=== PATIENT | female | born 1970 | race African-American/Black ===

== ENCOUNTER 2016-06-15 12:52 | Inpatient (IN) | payer MEDICARE ==
[~2016-06-15] VITALS: Ht 180.3 cm; Wt 160.8 kg
[~2016-06-15 12:52] MED LIST: ASPI81TA2 PO; FERR325T58 PO; LISI1TAB5 PO; METF500T4 PO; OMEP20CA9 PO
[2016-06-15] MEDS ORDERED: IV NORMAL SALINE 1000ML BAG 1,000 ML IV SCH (13:03)
--- NOTE | 2016-06-15 13:14 | PHYS DOC ---
Past Medical History Past Medical History: Diabetes-Type II, Hypertension, Other Additional Past Medical Histor: BORDERLINE DIABETIC Past Surgical History: Tubal ligation Alcohol Use: Occasionally Drug Use: None Adult General Chief Complaint Chief Complaint: CHEST PAIN HPI HPI Is a pleasant 45-year-old -[place] female who presents with chest pain that began 20 minutes prior to arrival. She is presently lady who is axis seen 3 or 4 months ago for a very similar presentation was admitted to the hospital as a low-risk chest pain patient no invasive procedures were done and noted excess treadmill was completed. She said today she woke up with neck pain on the right side that was described as aching and told to come ibuprofen 30 mins prior to arrival developed chest pain at rest while driving her car. She describes the chest pain as squeezing in nature over the left breast with radiation to the left shoulder making her diaphoretic lightheaded and dizzy. She decided to come back to the hospital because the pain was unabating. She admits that the pain is radiating to her back her left shoulder is made her lightheaded and dizzy. She denies any nausea vomiting at this time denies any coffee or symptoms she denies any fevers or chills direct trauma worsening symptoms with movement of the shoulder or arm. She said she had an x-ray showed multiple asthma for 5 years ago at another facility does have a cardiology evaluation with the last admission 3 months ago and is presently not on her medications for her high blood pressure since she has run out. She was asked on her way to see her primary care doctor to get that refilled at [facility]. She has a significant family history with the mother father and older brother who have had significant CAD with CABG's. Her pain presently is a 7 of 10 Review of Systems Review of Systems Constitutional: Denies fever or chills [] Eyes: Denies change in visual acuity, redness, or eye pain [] HENT: Denies nasal congestion or sore throat [] Respiratory: She denies any cough shortness of breath which has been worsening with movement. Cardiovascular: No additional information not addressed in HPI [] GI: Denies abdominal pain, nausea, vomiting, bloody stools or diarrhea [] : Denies dysuria or hematuria [] Musculoskeletal: Denies back pain or joint pain [] Integument: Denies rash or skin lesions [] Neurologic: She has been lightheaded and dizzy with diaphoresis. Endocrine: Denies polyuria or polydipsia [] Family History Family History Family history is significant for hypertension and CAD Current Medications Current Medications Current Medications Medications (Trade) Dose Ordered Sig/Tena Start Time Stop Time Status Last Admin Dose Admin Aspirin (Children'S Aspirin) 324 mg 1X ONCE 06/15/16 13:15 06/15/16 13:16 DC 06/15/16 13:19 324 MG Fentanyl Citrate 50 mcg 50 mcg PRN Q15MIN PRN 06/15/16 13:15 06/16/16 13:14 06/15/16 13:18 50 MCG Iohexol (Omnipaque 300 Mg/ml) 75 ml 1X ONCE 06/15/16 14:00 06/15/16 14:01 DC 06/15/16 14:20 75 ML Sodium Chloride (Iv Sodium Chloride 0.9% 1000ml Bag) 1,000 ml @ 1,000 mls/hr Q1H 06/15/16 13:03 06/15/16 14:02 DC 06/15/16 13:18 1,000 MLS/HR Sodium Chloride (Normal Saline Flush) 10 ml QSHIFT PRN 06/15/16 13:15 06/15/16 13:19 10 ML Allergies Allergies Allergies Coded Allergies Type Severity Reaction Last Updated Verified No Known Drug Allergies 12/16/14 No Physical Exam Physical Exam Constitutional: Well developed, well nourished, patient is nondiaphoretic in no acute distress but says her pain is presently 7 of 10. HENT: Normocephalic, atraumatic, bilateral external ears normal, oropharynx moist, no oral exudates, nose normal. [] Eyes: PERRLA, EOMI, conjunctiva normal, no discharge. [] Neck: Normal range of motion, no tenderness, supple, no stridor. [] Cardiovascular:Heart rate regular rhythm, no murmur [] Lungs & Thorax: Bilateral breath sounds clear to auscultation [] Abdomen: Bowel sounds normal, soft, no tenderness, no masses, no pulsatile masses. [] Skin: Warm, dry, no erythema, no rash. [] Back: No tenderness, no CVA tenderness. [] Extremities: No tenderness, no cyanosis, no clubbing, ROM intact, no edema. [] Neurologic: Alert and oriented X 3, normal motor function, normal sensory function, no focal deficits noted. [] Psychologic: Affect normal, judgement normal, mood normal. [] Current Patient Data Vital Signs Vital Signs Date Time Temp Pulse Resp B/P Pulse Ox O2 Delivery O2 Flow Rate FiO2 06/15/16 14:03 68 20 149/78 98 Room Air 06/15/16 12:59 98.1 98.1 Lab Values Laboratory Tests Test 06/15/16 12:58 06/15/16 13:10 06/15/16 13:45 POC Urine HCG, Qualitative Hcg negative (Negative) White Blood Count 9.2x10^3/uL (4.0-11.0) Red Blood Count 4.57x10^6/uL (3.50-5.40) Hemoglobin 13.9g/dL (12.0-15.5) Hematocrit 42.4% (36.0-47.0) Mean Corpuscular Volume 93fL (79-100) Mean Corpuscular Hemoglobin 31pg (25-35) Mean Corpuscular Hemoglobin Concent 33g/dL (31-37) Red Cell Distribution Width 13.5% (11.5-14.5) Platelet Count 252x10^3/uL (140-400) Neutrophils (%) (Auto) 62% (31-73) Lymphocytes (%) (Auto) 26% (24-48) Monocytes (%) (Auto) 11% (0-9) H Eosinophils (%) (Auto) 1% (0-3) Basophils (%) (Auto) 1% (0-3) Neutrophils # (Auto) 5.6x10^3uL (1.8-7.7) Lymphocytes # (Auto) 2.4x10^3/uL (1.0-4.8) Monocytes # (Auto) 1.0x10^3/uL (0.0-1.1) Eosinophils # (Auto) 0.0x10^3/uL (0.0-0.7) Basophils # (Auto) 0.1x10^3/uL (0.0-0.2) D-Dimer (Stephani) 0.56ug/mlFEU (0.00-0.50) H Sodium Level 137mmol/L (136-145) Potassium Level 4.1mmol/L (3.5-5.1) Chloride Level 101mmol/L (98-107) Carbon Dioxide Level 32mmol/L (21-32) Anion Gap 4 (6-14) L Blood Urea Nitrogen 11mg/dL (7-20) Creatinine 0.7mg/dL (0.6-1.0) Estimated GFR (Cockcroft-Gault) 109.5 Glucose Level 124mg/dL (70-99) H Calcium Level 9.1mg/dL (8.5-10.1) Magnesium Level 1.7mg/dL (1.8-2.4) L Creatine Kinase 161U/L (26-192) Creatine Kinase MB (Mass) 1.0ng/mL (0.0-3.6) Creatine Kinase MB Relative Index 0.6% (0-4) Troponin I Quantitative 0.027ng/mL (0.000-0.055) JI-Qsd-I-Type Natriuretic Peptide 290pg/mL (0-124) H Lipase 104U/L (73-393) Urine Collection Type Unknown Urine Color Yellow Urine Clarity Clear Urine pH 7.0 Urine Specific [place] 1.020 Urine Protein Negativemg/dL (NEG-TRACE) Urine Glucose (UA) Negativemg/dL (NEG) Urine Ketones (Stick) Negativemg/dL (NEG) Urine Blood Negative (NEG) Urine Nitrite Negative (NEG) Urine Bilirubin Negative (NEG) Urine Urobilinogen Dipstick 1.0mg/dL (0.2 mg/dL) Urine Leukocyte Esterase Small (NEG) Urine RBC 0/HPF (0-2) Urine WBC Occ/HPF (0-4) Urine Squamous Epithelial Cells Many/LPF Urine Bacteria Few/HPF (0-FEW) Urine Mucus Slight/LPF Laboratory Tests 06/15/16 13:10 Laboratory Tests 06/15/16 13:10 EKG EKG [] EKG dated 06/15/2016 time 1302 demonstrates normal sinus rhythm heart rate of 88 ND interval normal at 170 patient's QRS is normal at 354. There is no asymmetry with changes consistent with acute coronary ischemia no T wave inversion and no Q-wave formation. Radiology/Procedures Radiology/Procedures Laboratory Tests Test 06/15/16 12:58 06/15/16 13:10 06/15/16 13:45 Bedside Urine HCG, Qualitative Hcg negative (Negative) White Blood Count 9.2x10^3/uL (4.0-11.0) Red Blood Count 4.57x10^6/uL (3.50-5.40) Hemoglobin 13.9g/dL (12.0-15.5) Hematocrit 42.4% (36.0-47.0) Mean Corpuscular Volume 93fL (79-100) Mean Corpuscular Hemoglobin 31pg (25-35) Mean Corpuscular Hemoglobin Concent 33g/dL (31-37) Red Cell Distribution Width 13.5% (11.5-14.5) Platelet Count 252x10^3/uL (140-400) Neutrophils (%) (Auto) 62% (31-73) Lymphocytes (%) (Auto) 26% (24-48) Monocytes (%) (Auto) 11% (0-9) Eosinophils (%) (Auto) 1% (0-3) Basophils (%) (Auto) 1% (0-3) Neutrophils # (Auto) 5.6x10^3uL (1.8-7.7) Lymphocytes # (Auto) 2.4x10^3/uL (1.0-4.8) Monocytes # (Auto) 1.0x10^3/uL (0.0-1.1) Eosinophils # (Auto) 0.0x10^3/uL (0.0-0.7) Basophils # (Auto) 0.1x10^3/uL (0.0-0.2) D-Dimer (Stephani) 0.56ug/mlFEU (0.00-0.50) Sodium Level 137mmol/L (136-145) Chloride Level 101mmol/L (98-107) Carbon Dioxide Level 32mmol/L (21-32) Anion Gap 4 (6-14) Blood Urea Nitrogen 11mg/dL (7-20) Estimated GFR (Cockcroft-Gault) 109.5 Glucose Level 124mg/dL (70-99) Calcium Level 9.1mg/dL (8.5-10.1) Creatine Kinase 161U/L (26-192) Creatine Kinase MB (Mass) 1.0ng/mL (0.0-3.6) Creatine Kinase MB Relative Index 0.6% (0-4) Troponin I Quantitative 0.027ng/mL (0.000-0.055) Lipase 104U/L (73-393) Urine Collection Type Unknown Urine Color Yellow Urine Clarity Clear Urine pH 7.0 Urine Specific [place] 1.020 Urine Protein Negativemg/dL (NEG-TRACE) Urine Glucose (UA) Negativemg/dL (NEG) Urine Ketones (Stick) Negativemg/dL (NEG) Urine Blood Negative (NEG) Urine Nitrite Negative (NEG) Urine Bilirubin Negative (NEG) Urine Urobilinogen Dipstick 1.0mg/dL (0.2 mg/dL) Urine Leukocyte Esterase Small (NEG) Urine RBC 0/HPF (0-2) Urine WBC Occ/HPF (0-4) Urine Squamous Epithelial Cells Many/LPF Urine Bacteria Few/HPF (0-FEW) Urine Mucus Slight/LPF [] Impressions: Signed PATIENT: LIDIA CRUZ ACCOUNT: [id number] : 1970 LOCATION: ER AGE: 45 SEX: F EXAM STATUS: REG ER ORD. PHYSICIAN: LINA ESTEBAN MD REASON: chest pain with positive d-dimer PROCEDURE: CT ANGIOGRAPHY CHEST Elevated d-dimer. Left-sided chest pain. Axial images of the chest were obtained. The examination was tailored for the detection of pulmonary embolus. MIP images were generated and reviewed. No similar imaging is available. Approximately 75 cc of Omnipaque 300 was administered. Imaging through the upper abdomen shows no acute finding. Cholelithiasis is noted. The thoracic aorta appears unremarkable. Calcified right paratracheal lymph nodes are noted as well as calcified subcarinal lymph nodes. There are occasional calcified parenchymal granulomas as well. There is a noncalcified nodule in the right upper lobe measuring approximately 2 mm, image 59 series 3. An acute parenchymal infiltrate or dominant soft tissue mass in either lung is not seen. The study is negative for pulmonary embolus. IMPRESSION: No acute finding seen in the chest. Negative study for pulmonary embolus. Several scattered parenchymal granulomas and calcified mediastinal lymph nodes. There is a small noncalcified nodule in the right upper lobe. This may warrant follow-up along the lines of the Fleischner criteria. Clinical correlation advised Cholelithiasis Nodules detected incidentally at non-screening CT Nodule size (mm) less than or equal to 4 Low Risk patients- no follow-up needed High Risk patients- follow-up at 12 months and if no change, no further imaging needed. Nodule size > 4-6 mm Low risk patients- follow- up at 12 months and if no change, no further imaging needed High risk patients- initial follow-up CT at 6-12 months and then at 18-24 months if no change. Nodule Size > 6-8 mm Low risk patients- initial follow-up CT at 6-12 months and then at 18-24 months if no change. High risk patients- initial follow- up CT at 3-6 months and then at 9-12 months if no change, Nodule Size >8 mm Either low or high risk patients: Follow-up CT at around 3, 9 and 24 months Dynamic contrast enhanced [address], PET, and/or biopsy Note: newly detected indeterminate nodule in person 35 years of age or older. Low risk patients- minimal or absent history of smoking and/or other known risk factors. High risk patients- history of smoking or of other known risk factors. PQRS Compliance Statement: One or more of the following individualized dose reduction techniques were utilized for this examination: 1. Automated exposure control 2. Adjustment of the mA and/or kV according to patient size 3. Use of iterative reconstruction technique DICTATED and SIGNED BY: BISI FELDMAN MD DATE: 06/15/16 1363 CC: LINA ESTEBAN MD; UNKNOWN PCP NAME ~ Course & Med Decision Making Course & Med Decision Making Pertinent Labs and Imaging studies reviewed. (See chart for details) [On arrival patient's story is very concerning for acute coronary syndrome. Differential diagnosis includes pericarditis per: Effusion pneumonitis pleural effusion and pericardial effusion mediastinitis esophageal reflux disease peptic ulcer disease muscatel disorder.] Patient's troponin is negative patient has a positive d-dimer but a negative CT scan of the chest. Patient is a low risk chest pain patient will need to be admitted given the duration of her symptoms only 20 minutes prior to arrival. Patient will be admitted to internal medicine and will be excluded with multiple troponins overnight and see cardiology in the morning. Patient felt markedly better with aspirin and the pain medications as well as fluids here in the emergency department. Dragon Disclaimer Dragon Disclaimer This electronic medical record was generated, in whole or in part, using a voice recognition dictation system. Departure Departure Impression: Primary Impression: Chest pain Disposition: 02 TRANSFER [facility] Admitting Physician: Ramy Barnes Condition: GOOD Referrals: UNKNOWN PCP NAME (PCP) LINA ESTEBAN MD June 15, 2016 13:14
[2016-06-15] MEDS ORDERED: 0.9 % SODIUM CHLORIDE 10 ML DISP.SYRIN. IV PRN (13:15)
[2016-06-15] MEDS ORDERED: ASPIRIN CHEWABLE 81 MG TABLET. PO ONE (13:15)
[2016-06-15] MEDS ORDERED: fentaNYL PF VIAL 100 MCG/2 ML VIAL IV PRN (13:15)
[2016-06-15 13:19] LABS: BASO # 0.1 x10^3/uL (0.0-0.2); BASO % 1 % (0-3); EOS % 1 % (0-3); HEMATOCRIT 42.4 % (36.0-47.0); HEMOGLOBIN 13.9 g/dL (12.0-15.5); LYMPH # 2.4 x10^3/uL (1.0-4.8); LYMPH % 26 % (24-48); MEAN CORPUSCULAR HEMOGLOBIN 31 pg (25-35); MEAN CORPUSCULAR HGB CONC 33 g/dL (31-37); MEAN CORPUSCULAR VOLUME 93 fL (79-100); MONO % 11 % (0-9); NEUT % 62 % (31-73); PLATELET COUNT 252 x10^3/uL (140-400); RED BLOOD COUNT 4.57 x10^6/uL (3.50-5.40); RED CELL DISTRIBUTION WIDTH 13.5 % (11.5-14.5); WHITE BLOOD COUNT 9.2 x10^3/uL (4.0-11.0)
[2016-06-15 13:29] LABS: CALCIUM 9.1 mg/dL (8.5-10.1); CREATININE 0.7 mg/dL (0.6-1.0); GFR 109.5; POTASSIUM 4.1 mmol/L (3.5-5.1)
[2016-06-15 13:30] LABS: MAGNESIUM 1.7 mg/dL (1.8-2.4)
[2016-06-15] MEDS ORDERED: IOHEXOL 300 MG/ML 75 ML VIAL IV ONE (14:00)
[2016-06-15 14:02] LABS: BILIRUBIN,URINE NEGATIVE (NEG); GLUCOSE,URINE NEGATIVE (NEG); NITRITE,URINE NEGATIVE (NEG); PROTEIN,URINE NEGATIVE (NEG-TRACE)
--- NOTE | 2016-06-15 14:03 | EKG ---
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
[2016-06-15 14:12] LABS: BACTERIA,URINE FEW /HPF (0-FEW); RBC,URINE 0 /HPF (0-2); SQUAMOUS EPITHELIAL CELL,UR MANY /LPF; WBC,URINE OCC /HPF (0-4)
--- NOTE | 2016-06-15 14:24 | RAD ---
Indication left-sided chest pain. PA and lateral views of the chest were obtained and are compared to an exam 01/25/2016. Heart size is at the upper limits of normal. Some fullness in the right paratracheal region is noted similar to the previous exam density likely reflecting a granuloma is noted in the right lung also similar. Pulmonary vasculature is normal. An acute parenchymal infiltrate or significant change compared to the previous exam is not seen. IMPRESSION:: No acute finding. No significant change
--- NOTE | 2016-06-15 14:44 | RAD ---
Elevated d-dimer. Left-sided chest pain. Axial images of the chest were obtained. The examination was tailored for the detection of pulmonary embolus. MIP images were generated and reviewed. No similar imaging is available. Approximately 75 cc of Omnipaque 300 was administered. Imaging through the upper abdomen shows no acute finding. Cholelithiasis is noted. The thoracic aorta appears unremarkable. Calcified right paratracheal lymph nodes are noted as well as calcified subcarinal lymph nodes. There are occasional calcified parenchymal granulomas as well. There is a noncalcified nodule in the right upper lobe measuring approximately 2 mm, image 59 series 3. An acute parenchymal infiltrate or dominant soft tissue mass in either lung is not seen. The study is negative for pulmonary embolus. IMPRESSION: No acute finding seen in the chest. Negative study for pulmonary embolus. Several scattered parenchymal granulomas and calcified mediastinal lymph nodes. There is a small noncalcified nodule in the right upper lobe. This may warrant follow-up along the lines of the Fleischner criteria. Clinical correlation advised Cholelithiasis Nodules detected incidentally at non-screening CT Nodule size (mm) less than or equal to 4 Low Risk patients- no follow-up needed High Risk patients- follow-up at 12 months and if no change, no further imaging needed. Nodule size > 4-6 mm Low risk patients- follow- up at 12 months and if no change, no further imaging needed High risk patients- initial follow-up CT at 6-12 months and then at 18-24 months if no change. Nodule Size > 6-8 mm Low risk patients- initial follow-up CT at 6-12 months and then at 18-24 months if no change. High risk patients- initial follow- up CT at 3-6 months and then at 9-12 months if no change, Nodule Size >8 mm Either low or high risk patients: Follow-up CT at around 3, 9 and 24 months Dynamic contrast enhanced CT, PET, and/or biopsy Note: newly detected indeterminate nodule in person 35 years of age or older. Low risk patients- minimal or absent history of smoking and/or other known risk factors. High risk patients- history of smoking or of other known risk factors. PQRS Compliance Statement: One or more of the following individualized dose reduction techniques were utilized for this examination: 1. Automated exposure control 2. Adjustment of the mA and/or kV according to patient size 3. Use of iterative reconstruction technique
[2016-06-15] MEDS ORDERED: MULT1TAB52 PO (15:41)
[2016-06-15 15:46] VITALS: BP 147/78
[2016-06-15] MEDS ORDERED: ACETAMINOPHEN 325 MG TABLET. PO PRN (18:45)
[2016-06-15] MEDS ORDERED: ONDANSETRON PF 4 MG/2 ML VIAL. IV PRN (18:45)
[2016-06-15] MEDS ORDERED: hydrALAZINE 20 MG/ML VIAL. IVP PRN (18:45)
[2016-06-15] MEDS ORDERED: ALBUTEROL SULFATE 2.5 MG/3 ML NEBU. NEB PRN (18:45)
[2016-06-15] MEDS ORDERED: HYDROcodone/APAP 5/325MG 1 TAB TABLET PO PRN (18:45)
--- NOTE | 2016-06-15 18:57 | PDOC1 ---
History and Physical Current Problem List Problem List Problems Medical Problems: (1) Chest pain Status: Acute Current Medications Current Medications Current Medications Medications (Trade) Dose Ordered Sig/Tena Start Time Stop Time Status Last Admin Dose Admin Acetaminophen (Tylenol) 325 mg PRN Q6HRS PRN 06/15/16 18:45 Acetaminophen/ Hydrocodone Bitart (Lortab 5/325) 1 tab PRN Q6HRS PRN 06/15/16 18:45 Albuterol Sulfate (Ventolin Neb Soln) 2.5 mg PRN Q4HRS PRN 06/15/16 18:45 Aspirin (Children'S Aspirin) 81 mg DAILY 06/16/16 09:00 Fentanyl Citrate 50 mcg 50 mcg PRN Q15MIN PRN 06/15/16 13:15 06/16/16 13:14 06/15/16 13:18 50 MCG Ferrous Sulfate (Feosol) 325 mg DAILY 06/16/16 09:00 Hydralazine HCl (Apresoline) 10 mg PRN Q4HRS PRN 06/15/16 18:45 Iohexol (Omnipaque 300 Mg/ml) 75 ml 1X ONCE 06/15/16 14:00 06/15/16 14:01 DC 06/15/16 14:20 75 ML Lisinopril (Prinivil) 20 mg DAILY 06/16/16 09:00 Multivitamins (Thera M Plus) 1 tab DAILY 06/16/16 09:00 Non-Formulary Medication 1 cap DAILY 06/16/16 09:00 UNV Ondansetron HCl (Zofran) 4 mg PRN Q8HRS PRN 06/15/16 18:45 Sodium Chloride (Iv Sodium Chloride 0.9% 1000ml Bag) 1,000 ml @ 1,000 mls/hr Q1H 06/15/16 13:03 06/15/16 14:02 DC 06/15/16 13:18 1,000 MLS/HR Sodium Chloride (Normal Saline Flush) 10 ml QSHIFT PRN 06/15/16 13:15 06/15/16 13:19 10 ML Allergies Allergies Allergies Coded Allergies Type Severity Reaction Last Updated Verified No Known Drug Allergies 12/16/14 No ROS Review of System CONSTITUTIONAL: No fever or chills EYES: No recent changes SKIN: No rash or itching CARDIOVASCULAR: Chest pain, no syncope, palpitations, or edema RESPIRATORY: No SOB or cough GASTROINTESTINAL: No nausea, vomiting or abdominal pain NEUROLOGICAL: No headaches or weakness ENDOCRINE: No cold or heat intolerance GENITOURINARY: No urgency or frequency of urination MUSCULOSKELETAL: No back pain or joint pain LYMPHATICS: No enlarged lymph nodes PSYCHIATRIC: No anxiety or depression Physical Exam Physical Exam GEN.: No apparent distress. Alert and oriented times 3, obese HEENT: Head is normocephalic, atraumatic NECK: Supple. no JVD LUNGS: Clear to auscultation.normal airflow HEART: RRR, S1, S2 present. Peripheral pulses intact ABDOMEN: Soft, nontender. Positive bowel sounds. EXTREMITIES: Without any cyanosis. NEUROLOGIC: Normal speech, normal tone PSYCHIATRIC: Normal affect, normal mood. SKIN: dry Vitals Vitals Vital Signs Date Time Temp Pulse Resp B/P Pulse Ox O2 Delivery O2 Flow Rate FiO2 06/15/16 16:37 Room Air 06/15/16 15:46 68 18 147/78 100 06/15/16 12:59 98.1 98.1 Labs Labs Laboratory Tests Test 06/15/16 12:58 06/15/16 13:10 06/15/16 13:45 Bedside Urine HCG, Qualitative Hcg negative (Negative) White Blood Count 9.2x10^3/uL (4.0-11.0) Red Blood Count 4.57x10^6/uL (3.50-5.40) Hemoglobin 13.9g/dL (12.0-15.5) Hematocrit 42.4% (36.0-47.0) Mean Corpuscular Volume 93fL (79-100) Mean Corpuscular Hemoglobin 31pg (25-35) Mean Corpuscular Hemoglobin Concent 33g/dL (31-37) Red Cell Distribution Width 13.5% (11.5-14.5) Platelet Count 252x10^3/uL (140-400) Neutrophils (%) (Auto) 62% (31-73) Lymphocytes (%) (Auto) 26% (24-48) Monocytes (%) (Auto) 11% (0-9) Eosinophils (%) (Auto) 1% (0-3) Basophils (%) (Auto) 1% (0-3) Neutrophils # (Auto) 5.6x10^3uL (1.8-7.7) Lymphocytes # (Auto) 2.4x10^3/uL (1.0-4.8) Monocytes # (Auto) 1.0x10^3/uL (0.0-1.1) Eosinophils # (Auto) 0.0x10^3/uL (0.0-0.7) Basophils # (Auto) 0.1x10^3/uL (0.0-0.2) D-Dimer (Stephani) 0.56ug/mlFEU (0.00-0.50) Sodium Level 137mmol/L (136-145) Potassium Level 4.1mmol/L (3.5-5.1) Chloride Level 101mmol/L (98-107) Carbon Dioxide Level 32mmol/L (21-32) Anion Gap 4 (6-14) Blood Urea Nitrogen 11mg/dL (7-20) Creatinine 0.7mg/dL (0.6-1.0) Estimated GFR (Cockcroft-Gault) 109.5 Glucose Level 124mg/dL (70-99) Calcium Level 9.1mg/dL (8.5-10.1) Magnesium Level 1.7mg/dL (1.8-2.4) Creatine Kinase 161U/L (26-192) Creatine Kinase MB (Mass) 1.0ng/mL (0.0-3.6) Creatine Kinase MB Relative Index 0.6% (0-4) Troponin I Quantitative 0.027ng/mL (0.000-0.055) ZR-Mkb-C-Type Natriuretic Peptide 290pg/mL (0-124) Lipase 104U/L (73-393) Urine Collection Type Unknown Urine Color Yellow Urine Clarity Clear Urine pH 7.0 Urine Specific [place] 1.020 Urine Protein Negativemg/dL (NEG-TRACE) Urine Glucose (UA) Negativemg/dL (NEG) Urine Ketones (Stick) Negativemg/dL (NEG) Urine Blood Negative (NEG) Urine Nitrite Negative (NEG) Urine Bilirubin Negative (NEG) Urine Urobilinogen Dipstick 1.0mg/dL (0.2 mg/dL) Urine Leukocyte Esterase Small (NEG) Urine RBC 0/HPF (0-2) Urine WBC Occ/HPF (0-4) Urine Squamous Epithelial Cells Many/LPF Urine Bacteria Few/HPF (0-FEW) Urine Mucus Slight/LPF Laboratory Tests Test 06/15/16 12:58 06/15/16 13:10 06/15/16 13:45 Bedside Urine HCG, Qualitative Hcg negative (Negative) White Blood Count 9.2x10^3/uL (4.0-11.0) Red Blood Count 4.57x10^6/uL (3.50-5.40) Hemoglobin 13.9g/dL (12.0-15.5) Hematocrit 42.4% (36.0-47.0) Mean Corpuscular Volume 93fL (79-100) Mean Corpuscular Hemoglobin 31pg (25-35) Mean Corpuscular Hemoglobin Concent 33g/dL (31-37) Red Cell Distribution Width 13.5% (11.5-14.5) Platelet Count 252x10^3/uL (140-400) Neutrophils (%) (Auto) 62% (31-73) Lymphocytes (%) (Auto) 26% (24-48) Monocytes (%) (Auto) 11% (0-9) Eosinophils (%) (Auto) 1% (0-3) Basophils (%) (Auto) 1% (0-3) Neutrophils # (Auto) 5.6x10^3uL (1.8-7.7) Lymphocytes # (Auto) 2.4x10^3/uL (1.0-4.8) Monocytes # (Auto) 1.0x10^3/uL (0.0-1.1) Eosinophils # (Auto) 0.0x10^3/uL (0.0-0.7) Basophils # (Auto) 0.1x10^3/uL (0.0-0.2) D-Dimer (Stephani) 0.56ug/mlFEU (0.00-0.50) Sodium Level 137mmol/L (136-145) Potassium Level 4.1mmol/L (3.5-5.1) Chloride Level 101mmol/L (98-107) Carbon Dioxide Level 32mmol/L (21-32) Anion Gap 4 (6-14) Blood Urea Nitrogen 11mg/dL (7-20) Creatinine 0.7mg/dL (0.6-1.0) Estimated GFR (Cockcroft-Gault) 109.5 Glucose Level 124mg/dL (70-99) Calcium Level 9.1mg/dL (8.5-10.1) Magnesium Level 1.7mg/dL (1.8-2.4) Creatine Kinase 161U/L (26-192) Creatine Kinase MB (Mass) 1.0ng/mL (0.0-3.6) Creatine Kinase MB Relative Index 0.6% (0-4) Troponin I Quantitative 0.027ng/mL (0.000-0.055) XC-Ejs-K-Type Natriuretic Peptide 290pg/mL (0-124) Lipase 104U/L (73-393) Urine Collection Type Unknown Urine Color Yellow Urine Clarity Clear Urine pH 7.0 Urine Specific [place] 1.020 Urine Protein Negativemg/dL (NEG-TRACE) Urine Glucose (UA) Negativemg/dL (NEG) Urine Ketones (Stick) Negativemg/dL (NEG) Urine Blood Negative (NEG) Urine Nitrite Negative (NEG) Urine Bilirubin Negative (NEG) Urine Urobilinogen Dipstick 1.0mg/dL (0.2 mg/dL) Urine Leukocyte Esterase Small (NEG) Urine RBC 0/HPF (0-2) Urine WBC Occ/HPF (0-4) Urine Squamous Epithelial Cells Many/LPF Urine Bacteria Few/HPF (0-FEW) Urine Mucus Slight/LPF VTE Prophylaxis Ordered VTE Prophylaxis Devices: Yes VTE Pharmacological Prophylaxi: Yes MARIANA CACERES MD June 15, 2016 18:57
[2016-06-15] MEDS ORDERED: ENOXAPARIN 40 MG/0.4 ML SYRINGE. SQ SCH (19:00)
[2016-06-15] MEDS ORDERED: NITROGLYCERIN SUBLINGUAL 0.4 MG BOTTLE OF 25. SL PRN (19:00)
[2016-06-15 19:48] VITALS: BP 156/70
--- NOTE | 2016-06-15 19:50 | HP ---
ADMIT DATE: 06/15/2016 CHIEF COMPLAINT: Chest pain. HISTORY OF PRESENT ILLNESS: A 45-year-old -[place] female patient with a prior history of borderline diabetes and hypertension, who presented to the ER with complaints of chest pain. Symptoms started 20 minutes prior to the arrival. The patient woke up with neck pain this morning - right-sided and described it as an achy pain; however, she had chest pain, which was left-sided and squeezing in nature and also radiation to the left shoulder with some lightheadedness and diaphoresis. She denies any prior history of coronary artery disease or coronary stent placement. On initial evaluation in the ER, she had a CTA of the chest, which was negative; however, she had some pulmonary nodules. At the time of her examination, she is resting comfortably, denies any chest pain. She did have GERD in the past - for that, she is taking Tums and [id number]-zvaogam proton pump inhibitors. PAST MEDICAL HISTORY: Type 2 diabetes mellitus, hypertension. PAST SURGICAL HISTORY: Tubal ligation. PERSONAL HISTORY: No smoking, no alcohol____, and no substance abuse; occasionally, takes alcohol. 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 ALLERGIES: NKDA. FAMILY HISTORY: Mother, father, and brother had coronary artery disease. Brother had coronary artery disease when he was in the 50s. REVIEW OF SYSTEMS AND PHYSICAL EXAMINATION: Please see my electronic H and P. LABORATORY DATA: CBC within normal limits. Chemistry within normal limits, except for troponin of 0.027 with lipase 104. ProBNP is 290. Coagulation panel: D-dimer is 0.56. Urinalysis: Nitrites negative, leukocyte esterase is small. IMAGING STUDIES: CTA of the chest - no acute findings seen. Several scattered parenchymal granulomas and calcified mediastinal lymph nodes seen. Needs outpatient followup with primary care doctor and Pulmonology. Chest x-ray, no acute finding seen. EKG - personally not able to review the report; as per the ER notes, normal sinus rhythm without any ST-T-wave changes. ASSESSMENT AND PLAN: 1. Chest pain, atypical. Differential diagnoses are Gastroesophageal reflux disease, cholecystitis, acute coronary syndrome, and pulmonary embolism. Pulmonary embolism has been ruled out. 2. Multiple scattered parenchymal granulomas with calcified mediastinal lymph nodes. 3. Obesity. 4. Prediabetes. 5. Hypertension. PLAN: 1. She has been admitted to the hospital and we will continue to monitor her troponins. Cardiology has been consulted for possible stress test in the a.m. 2. She needs outpatient followup with primary care doctor, and a CT chest report has been provided to the patient. 3. Due to her ____, she may need to have a stress test. 4. Sliding scale insulin if the patient develops any hyperglycemia more than 200. 5. Continue home medications for her hypertension, currently stable. 6. P.r.n. nitroglycerin for chest pain. 7. P.r.n. morphine for pain. MARIANA CACERES MD DR: WISAM/fiorella JOB#: [id number] / [id number] ILDA
[2016-06-15] MEDS: ENOXAPARIN 40 MG/0.4 ML SYRINGE. SQ SCH (20:15)
[2016-06-15 23:51] VITALS: BP 144/75
[2016-06-16 02:54] VITALS: BP 146/58
--- NOTE | 2016-06-16 04:41 | ACF ---
Admission Forms Criteria CHEST PAIN Clinical Indications for Admission to Inpatient Care (Place 'X' for any and all applicable criteria): Admission is indicated for chest pain and ANY ONE of the following(1)(2)(3)(4)(5 ): [ ]I. Angina with acute coronary syndrome (Also use Myocardial Infarction or Angina guideline) [ ]II. Hemodynamic instability [ ]III. Angina needing acute intervention as indicated by ALL of the following( 11)(12): [ ]a) Unstable angina is present as indicated by angina that is ANY ONE of the following: [ ]i) New onset [ ]ii) Nocturnal [ ]iii) Prolonged at rest [ ]iv) Progressive [ ]b) Angina warrants acute intervention as indicated by ANY ONE of the following: [ ]i) Recurrent angina (e.g, not responding as previously to treatment) [ ]ii) Angina at rest or with low-level activities despite initial medical therapy [ ]iii) New or presumably new ST-segment depression on ECG [ ]iv) Signs or symptoms of heart failure (eg, dyspnea, pulmonary edema) [ ]v) New or worsening mitral regurgitation [ ]vi) Hemodynamic instability [ ]vii) Dangerous arrhythmia (eg, sustained ventricular tachycardia) [ ]viii) History of percutaneous coronary intervention within 6 months [ ]ix) History of coronary artery bypass graft surgery [ ]x) JOSE ROBERTO risk score of 2 or greater[A] [ ]xi) History of Diabetes(14) [ ]xii) High-risk cardiac ischemia findings on noninvasive testing (e.g, echocardiogram, treadmill testing, nuclear scan) [ ]xiii) Chronic renal insufficiency (ie, estimated GFR less than 60 mL/min/1.732m) [ ]xiv) Left ventricular ejection fraction less than 40% [ ]IV. Evidence of PA (eg, cardiac biomarkers positive, ST-segment elevation on ECG) also use Myocardial Infarction Criteria Form. [ ]V. Pulmonary edema [ ]. Respiratory distress [ ]VII. Chest pain indicative of serious diagnosis other than coronary artery disease (eg, aortic dissection) [ ]VIII. Contraindications and/or Inappropriate clinical situations for Observational Care in patients with Chest Pain, when ANY ONE of the following is required: [ ]a) Patient with risk factor for pulmonary embolism, acute coronary syndrome and myocardial infarction (18) [ ]b) Patient with Pulmonary embolism require an average LOS of 4.3 days, therefore emergency department observation management is inappropriate 18,23 [ ]c) Painful condition/s in the elderly, have the highest rate of recidivism after emergency department observation management (10.8%) 20,21,22 [ ]d) Elevated cardiac biomarker requires intensive and exhaustive care (19) [X]IX. General contraindications and/or Inappropriate clinical situations for Observational Care in patients with Chest Pain, when ANY ONE of the following is required: [ ]a) Prediction of prolongation of LOS based on ANY ONE of the following may be considered as a contraindication for observational care 2, 3, 4, 5, 6, 7, 8, 9, 10, 11 [ ]i) Age > 65 yrs. [ ]ii) Patient arriving by ambulance [ ]iii) Patient with high acuity [ ]iv) Patient requiring vital sign monitoring [ ]v) Patient on IV medication [X]b) Systolic blood pressures 180mmHg 3,12 [ ]c) Patient with altered mental status including delirium and other alteration of consciousness, (3) [ ]d) Patient whose discharge disposition will be to a halfway home or rehabilitation home should not be managed in Emergency Department Observation Unit. CMS rule requires 3 days hospital stay before such placement. 3,13 [ ]e) Patient with failure to thrive due to broad array of etiologies 3,16,17 [ ]f) Inability to ambulate 3,14 Extended stay beyond goal length of stay may be needed for (1)(28): [ ]a) Specific condition diagnosed after evaluation (eg, pulmonary embolism, aortic dissection) [ ]b) Unstable angina [ ]c) Continued suspicion of acute coronary syndrome with inability to complete needed cardiac evaluation (eg, patient clinically unable to undergo stress testing) [ ]d) Myocardial infarction (Contents from ANGINA and CHEST PAIN clinical indications for admission to inpatient care have been integrated in this form) The original [employer] [employer] content created by [employer] has been revised. The portions of the content which have been revised are identified through the use of italic text or in bold, and [employer] [employer] has neither reviewed nor approved the modified material. All other unmodified content is copyright [employer]. Please see references footnoted in the original [employer] edition 2016 Admission Criteria Met?: Yes JANUSZ PARRA June 16, 2016 04:41
[2016-06-16 05:51] LABS: BASO % 0 % (0-3); EOS % 1 % (0-3); HEMATOCRIT 38.3 % (36.0-47.0); HEMOGLOBIN 12.5 g/dL (12.0-15.5); LYMPH # 2.5 x10^3/uL (1.0-4.8); LYMPH % 36 % (24-48); MEAN CORPUSCULAR HEMOGLOBIN 30 pg (25-35); MEAN CORPUSCULAR HGB CONC 33 g/dL (31-37); MEAN CORPUSCULAR VOLUME 93 fL (79-100); MONO % 10 % (0-9); NEUT % 53 % (31-73); PLATELET COUNT 201 x10^3/uL (140-400); RED BLOOD COUNT 4.12 x10^6/uL (3.50-5.40); RED CELL DISTRIBUTION WIDTH 13.4 % (11.5-14.5)
[2016-06-16 06:08] LABS: CALCIUM 8.6 mg/dL (8.5-10.1); CREATININE 0.8 mg/dL (0.6-1.0); GFR 93.9; POTASSIUM 3.5 mmol/L (3.5-5.1)
[2016-06-16 06:17] LABS: CHOLESTEROL/HDL RATIO 4.3
[2016-06-16 07:30] VITALS: BP 160/89
[2016-06-16] MEDS ORDERED: PANTOPRAZOLE 40 MG TABLET.DR. PO SCH (07:30)
--- NOTE | 2016-06-16 08:40 | RAD ---
Abdominal ultrasound, 06/15/2016: History: Abdominal pain, cholelithiasis The gallbladder is within normal limits in size. It contains multiple foci of increased echogenicity with associated posterior acoustic shadowing. The findings are those of cholelithiasis. The gallbladder wall is at the upper limits of normal in thickness. No pericholecystic edema is seen. The common hepatic duct is of normal caliber. There is no evidence of a hepatic mass. The visualized portions of the pancreas are unremarkable. The spleen is of normal size. The kidneys show no evidence of obstruction. There is a nonshadowing echogenic focus in the inferior parapelvic region of the left kidney. This could be a small calculus, scar or tiny angiomyolipoma. The kidneys are otherwise unremarkable. The visualized portions of the abdominal aorta and inferior vena cava show no abnormality. No free fluid is evident in the abdomen. IMPRESSION: Cholelithiasis
[2016-06-16] MEDS ORDERED: MULTIVITAMIN with MINERAL TABLET. PO SCH (09:00)
[2016-06-16] MEDS ORDERED: LISINOPRIL 20 MG TABLET PO SCH (09:00)
[2016-06-16] MEDS ORDERED: ASPIRIN CHEWABLE 81 MG TABLET. PO SCH (09:00)
[2016-06-16] MEDS ORDERED: FERROUS SULFATE 325 MG TABLET. PO SCH (09:00)
[2016-06-16] MEDS ORDERED: hydroCHLOROthiazide 12.5 MG CAPSULE PO SCH (09:00)
[2016-06-16] MEDS: ENOXAPARIN 40 MG/0.4 ML SYRINGE. SQ SCH (09:00)
--- NOTE | 2016-06-16 09:04 | PDOC2 ---
CARDIAC CONSULT DATE OF CONSULT Date of Consult DATE: 06/16/16 TIME: 08:53 REASON FOR CONSULT Reason for Consult: Chest pain REFERRING PHYSICIAN Referring Physician: Cameron SOURCE Source: Chart review, Patient HISTORY OF PRESENT ILLNESS HISTORY OF PRESENT ILLNESS This is a pleasant 45 yo female admitted for complains of chest pain. Reports mary ellen her chest pain is more of burning starting in the epigastric region and eventually having dull ache to her left shoulder and a little bit sweaty. This occurred after eating burrito pie. She has ED and has not taken any PPI or H2 luciana in a while but did take tums yesterday. She also started yoga and owen a week ago and so far she has been tolerating this. Denies any nausea, vomiting, palpitations, dizziness. Denies any SOA or TANG. Upon further testing she has been noted with pulmonary calcied granulomas as well as cholelithiasis. She has HTN which she regularly takes her medication as well as ASA. She does have DM2 which she used to take metformin but now diet controlled. Also has HLP but not medicated. No CAD, VTE, falls or any recent injury. PAST MEDICAL HISTORY Cardiovascular: HTN, Hyperlipidemia Pulmonary: No pertinent hx CENTRAL NERVOUS SYSTEM: Other (NO pertinent history) GI: GERD Heme/Onc: Anemia NOS Hepatobiliary: No pertinent hx Psych: No pertinent hx Musculoskeletal: Osteoarthritis, Other (morbid obesity) Rheumatologic: No pertinent hx Infectious disease: No pertinent hx ENT: No pertinent hx Renal/: No pertinent hx Endocrine: Diabetes Dermatology: No pertinent hx PAST SURGICAL HISTORY Past Surgical History: Tubal Ligation FAMILY HISTORY Family History: Heart Disease (brother and grandmother) SOCIAL HISTORY Smoke: No ALCOHOL: none Drugs: None Lives: with Family CURRENT MEDICATIONS CURRENT MEDICATIONS Current Medications Medications (Trade) Dose Ordered Sig/Tena Route PRN Reason Start Time Stop Time Status Last Admin Dose Admin Aspirin (Children'S Aspirin) 324 mg 1X ONCE PO 06/15/16 13:15 06/15/16 13:16 DC 06/15/16 13:19 Fentanyl Citrate 50 mcg 50 mcg PRN Q15MIN PRN IV PAIN GREATER THAN 3/10 06/15/16 13:15 06/16/16 13:14 06/15/16 13:18 Sodium Chloride (Iv Sodium Chloride 0.9% 1000ml Bag) 1,000 ml @ 1,000 mls/hr Q1H IV 06/15/16 13:03 06/15/16 14:02 DC 06/15/16 13:18 Sodium Chloride (Normal Saline Flush) 10 ml QSHIFT PRN IV AFTER MEDS AND BLOOD DRAWS 06/15/16 13:15 06/15/16 13:19 Iohexol (Omnipaque 300 Mg/ml) 75 ml 1X ONCE IV 06/15/16 14:00 06/15/16 14:01 DC 06/15/16 14:20 Enoxaparin Sodium (Lovenox 40mg Syringe) 40 mg Q12H SQ 06/15/16 21:00 06/15/16 20:15 ALLERGIES ALLERGIES: Coded Allergies: No Known Drug Allergies (Unverified , 12/16/14) ROS Review of System 14 point ROS evaluated with pertinent positives noted per HPI PHYSICAL EXAM General: Alert, Oriented X3, Cooperative, No acute distress HEENT: Atraumatic, Mucous membr. moist/pink Lungs: Clear to auscultation, Normal air movement Heart: Regular rate (SR), Normal S1, Normal S2, Other (distant heart sounds) Abdomen: Soft, Other (obese, mild RUQ tenderness with palpation) Extremities: No cyanosis, No edema Skin: No breakdown, No significant lesion Neuro: Normal speech, Sensation intact Psych/Mental Status: Mental status NL, Mood NL MUSCULOSKELETAL: Osteoarthritic changes both hands VITALS VITALS Vital Signs Date Time Temp Pulse Resp B/P Pulse Ox O2 Delivery O2 Flow Rate FiO2 06/16/16 02:54 98.1 70 18 146/58 100 Room Air 98.1 LABS Lab: Laboratory Tests Test 06/15/16 12:58 06/15/16 13:10 06/15/16 13:45 06/16/16 05:10 Bedside Urine HCG, Qualitative Hcg negative (Negative) White Blood Count 9.2x10^3/uL (4.0-11.0) 7.0x10^3/uL (4.0-11.0) Red Blood Count 4.57x10^6/uL (3.50-5.40) 4.12x10^6/uL (3.50-5.40) Hemoglobin 13.9g/dL (12.0-15.5) 12.5g/dL (12.0-15.5) Hematocrit 42.4% (36.0-47.0) 38.3% (36.0-47.0) Mean Corpuscular Volume 93fL (79-100) 93fL (79-100) Mean Corpuscular Hemoglobin 31pg (25-35) 30pg (25-35) Mean Corpuscular Hemoglobin Concent 33g/dL (31-37) 33g/dL (31-37) Red Cell Distribution Width 13.5% (11.5-14.5) 13.4% (11.5-14.5) Platelet Count 252x10^3/uL (140-400) 201x10^3/uL (140-400) Neutrophils (%) (Auto) 62% (31-73) 53% (31-73) Lymphocytes (%) (Auto) 26% (24-48) 36% (24-48) Monocytes (%) (Auto) 11% (0-9) 10% (0-9) Eosinophils (%) (Auto) 1% (0-3) 1% (0-3) Basophils (%) (Auto) 1% (0-3) 0% (0-3) Neutrophils # (Auto) 5.6x10^3uL (1.8-7.7) 3.7x10^3uL (1.8-7.7) Lymphocytes # (Auto) 2.4x10^3/uL (1.0-4.8) 2.5x10^3/uL (1.0-4.8) Monocytes # (Auto) 1.0x10^3/uL (0.0-1.1) 0.7x10^3/uL (0.0-1.1) Eosinophils # (Auto) 0.0x10^3/uL (0.0-0.7) 0.0x10^3/uL (0.0-0.7) Basophils # (Auto) 0.1x10^3/uL (0.0-0.2) 0.0x10^3/uL (0.0-0.2) D-Dimer (Stephani) 0.56ug/mlFEU (0.00-0.50) Sodium Level 137mmol/L (136-145) 140mmol/L (136-145) Potassium Level 4.1mmol/L (3.5-5.1) 3.5mmol/L (3.5-5.1) Chloride Level 101mmol/L (98-107) 104mmol/L (98-107) Carbon Dioxide Level 32mmol/L (21-32) 30mmol/L (21-32) Anion Gap 4 (6-14) 6 (6-14) Blood Urea Nitrogen 11mg/dL (7-20) 8mg/dL (7-20) Creatinine 0.7mg/dL (0.6-1.0) 0.8mg/dL (0.6-1.0) Estimated GFR (Cockcroft-Gault) 109.5 93.9 Glucose Level 124mg/dL (70-99) 111mg/dL (70-99) Calcium Level 9.1mg/dL (8.5-10.1) 8.6mg/dL (8.5-10.1) Magnesium Level 1.7mg/dL (1.8-2.4) Creatine Kinase 161U/L (26-192) Creatine Kinase MB (Mass) 1.0ng/mL (0.0-3.6) Creatine Kinase MB Relative Index 0.6% (0-4) Troponin I Quantitative 0.027ng/mL (0.000-0.055) < 0.017ng/mL (0.000-0.055) AK-Nvl-H-Type Natriuretic Peptide 290pg/mL (0-124) Lipase 104U/L (73-393) Urine Collection Type Unknown Urine Color Yellow Urine Clarity Clear Urine pH 7.0 Urine Specific [place] 1.020 Urine Protein Negativemg/dL (NEG-TRACE) Urine Glucose (UA) Negativemg/dL (NEG) Urine Ketones (Stick) Negativemg/dL (NEG) Urine Blood Negative (NEG) Urine Nitrite Negative (NEG) Urine Bilirubin Negative (NEG) Urine Urobilinogen Dipstick 1.0mg/dL (0.2 mg/dL) Urine Leukocyte Esterase Small (NEG) Urine RBC 0/HPF (0-2) Urine WBC Occ/HPF (0-4) Urine Squamous Epithelial Cells Many/LPF Urine Bacteria Few/HPF (0-FEW) Urine Mucus Slight/LPF Triglycerides Level 165mg/dL (0-150) Cholesterol Level 188mg/dL (0-200) LDL Cholesterol, Calculated 111mg/dL (0-100) VLDL Cholesterol, Calculated 33mg/dL (0-40) Non-HDL Cholesterol Calculated 144mg/dL (0-129) HDL Cholesterol 44mg/dL (40-60) Cholesterol/HDL Ratio 4.3 ASSESSMENT/PLAN ASSESSMENT/PLAN 1. Atypical CP: troponin series normal, EKG NSR. Suspect GI/MSK 2. Multiple pulmonary granulomas and RUL nodule: via CTA, no PE. Per PCP 3. Cholelithiasis 4. HTN: labile 5. HLP: LDL 111 6. DM2: was taken of metformin, being diet controlled 7. GERD: likely exacerbation. No PPI/H2 luciana coverage 8. Morbid obesity: BMI 49 Recommendations 1. Obtain baseline TTE 2. Continue with lisinopril/HCTZ/ASA/PPI 3. Recommend starting low dose statin. 4. No further testing if TTE has no significant changes 5. Lifestyle modification, just started owen and yoga a week ago. Problems: FAINA AVILA APRN June 16, 2016 09:04
--- NOTE | 2016-06-16 10:31 | PDOC2 ---
GI CONSULT Reason For Consult: Cholelithiasis HPI: HPI: 45 y/o AA female, admitted for chest pain, who reports experiencing some right- sided neck pain yesterday morning, improved w/ ibuprofen. Later on, she had heartburn after eating grilled chicken pie, improved w/ Tums. Then she felt a little lightheaded and began having left shoulder pain w/ some radiation to her back. Denies abd pain, n/v, dizziness, or bleeding. H/o heartburn w/ PRN use of antacids, has also used H2 blockers (lost efficacy) and PPI in the past w/ previous EGD many years ago. Recalls similar instance of left shoulder pain in 2016, and also has "burning" back pain from time to time. Takes NSAIDs about twice weekly. Occasional constipation attributed to women's multi-vitamin w/ iron which is of no concern to her. No previous colonoscopy. Underwent CTA for elevated D-dimer which was negative for PE but did show cholelithiasis. Follow-up abd US w/ same. Cardiology has seen, plans for echocardiogram. PMH: PMH: HTN, DM, tubal ligation FH: Family History: No pertinent hx (denies GI cancers), CAD Social History: Smoke: No ALCOHOL: none Drugs: None ROS: GEN: Denies fevers, chills, sweats HEENT: Denies blurred vision, sore throat CV: Denies chest pain RESP: Denies shortness of air, cough GI: Per HPI : Denies hematuria, dysuria ENDO: Denies weight changes NEURO: Denies confusion, dizziness MSK: +left shoulder pain +right knee pain SKIN: Denies jaundice, pruritus VItals: Vitals: Vital Signs Date Time Temp Pulse Resp B/P Pulse Ox O2 Delivery O2 Flow Rate FiO2 06/16/16 07:30 97.9 67 20 160/89 98 Room Air 97.9 Labs: Labs: Laboratory Tests Test 06/15/16 12:58 06/15/16 13:10 06/15/16 13:45 06/16/16 05:10 Bedside Urine HCG, Qualitative Hcg negative (Negative) White Blood Count 9.2x10^3/uL (4.0-11.0) 7.0x10^3/uL (4.0-11.0) Red Blood Count 4.57x10^6/uL (3.50-5.40) 4.12x10^6/uL (3.50-5.40) Hemoglobin 13.9g/dL (12.0-15.5) 12.5g/dL (12.0-15.5) Hematocrit 42.4% (36.0-47.0) 38.3% (36.0-47.0) Mean Corpuscular Volume 93fL (79-100) 93fL (79-100) Mean Corpuscular Hemoglobin 31pg (25-35) 30pg (25-35) Mean Corpuscular Hemoglobin Concent 33g/dL (31-37) 33g/dL (31-37) Red Cell Distribution Width 13.5% (11.5-14.5) 13.4% (11.5-14.5) Platelet Count 252x10^3/uL (140-400) 201x10^3/uL (140-400) Neutrophils (%) (Auto) 62% (31-73) 53% (31-73) Lymphocytes (%) (Auto) 26% (24-48) 36% (24-48) Monocytes (%) (Auto) 11% (0-9) 10% (0-9) Eosinophils (%) (Auto) 1% (0-3) 1% (0-3) Basophils (%) (Auto) 1% (0-3) 0% (0-3) Neutrophils # (Auto) 5.6x10^3uL (1.8-7.7) 3.7x10^3uL (1.8-7.7) Lymphocytes # (Auto) 2.4x10^3/uL (1.0-4.8) 2.5x10^3/uL (1.0-4.8) Monocytes # (Auto) 1.0x10^3/uL (0.0-1.1) 0.7x10^3/uL (0.0-1.1) Eosinophils # (Auto) 0.0x10^3/uL (0.0-0.7) 0.0x10^3/uL (0.0-0.7) Basophils # (Auto) 0.1x10^3/uL (0.0-0.2) 0.0x10^3/uL (0.0-0.2) D-Dimer (Stephani) 0.56ug/mlFEU (0.00-0.50) Sodium Level 137mmol/L (136-145) 140mmol/L (136-145) Potassium Level 4.1mmol/L (3.5-5.1) 3.5mmol/L (3.5-5.1) Chloride Level 101mmol/L (98-107) 104mmol/L (98-107) Carbon Dioxide Level 32mmol/L (21-32) 30mmol/L (21-32) Anion Gap 4 (6-14) 6 (6-14) Blood Urea Nitrogen 11mg/dL (7-20) 8mg/dL (7-20) Creatinine 0.7mg/dL (0.6-1.0) 0.8mg/dL (0.6-1.0) Estimated GFR (Cockcroft-Gault) 109.5 93.9 Glucose Level 124mg/dL (70-99) 111mg/dL (70-99) Calcium Level 9.1mg/dL (8.5-10.1) 8.6mg/dL (8.5-10.1) Magnesium Level 1.7mg/dL (1.8-2.4) Creatine Kinase 161U/L (26-192) Creatine Kinase MB (Mass) 1.0ng/mL (0.0-3.6) Creatine Kinase MB Relative Index 0.6% (0-4) Troponin I Quantitative 0.027ng/mL (0.000-0.055) < 0.017ng/mL (0.000-0.055) EX-Lxl-P-Type Natriuretic Peptide 290pg/mL (0-124) Lipase 104U/L (73-393) Urine Collection Type Unknown Urine Color Yellow Urine Clarity Clear Urine pH 7.0 Urine Specific [place] 1.020 Urine Protein Negativemg/dL (NEG-TRACE) Urine Glucose (UA) Negativemg/dL (NEG) Urine Ketones (Stick) Negativemg/dL (NEG) Urine Blood Negative (NEG) Urine Nitrite Negative (NEG) Urine Bilirubin Negative (NEG) Urine Urobilinogen Dipstick 1.0mg/dL (0.2 mg/dL) Urine Leukocyte Esterase Small (NEG) Urine RBC 0/HPF (0-2) Urine WBC Occ/HPF (0-4) Urine Squamous Epithelial Cells Many/LPF Urine Bacteria Few/HPF (0-FEW) Urine Mucus Slight/LPF Triglycerides Level 165mg/dL (0-150) Cholesterol Level 188mg/dL (0-200) LDL Cholesterol, Calculated 111mg/dL (0-100) VLDL Cholesterol, Calculated 33mg/dL (0-40) Non-HDL Cholesterol Calculated 144mg/dL (0-129) HDL Cholesterol 44mg/dL (40-60) Cholesterol/HDL Ratio 4.3 Allergies: Coded Allergies: No Known Drug Allergies (Unverified , 12/16/14) Medications: Current Medications Medications (Trade) Dose Ordered Sig/Tena Route PRN Reason Start Time Stop Time Status Last Admin Dose Admin Aspirin (Children'S Aspirin) 324 mg 1X ONCE PO 06/15/16 13:15 06/15/16 13:16 DC 06/15/16 13:19 Fentanyl Citrate 50 mcg 50 mcg PRN Q15MIN PRN IV PAIN GREATER THAN 3/10 06/15/16 13:15 06/16/16 13:14 06/15/16 13:18 Sodium Chloride (Iv Sodium Chloride 0.9% 1000ml Bag) 1,000 ml @ 1,000 mls/hr Q1H IV 06/15/16 13:03 06/15/16 14:02 DC 06/15/16 13:18 Sodium Chloride (Normal Saline Flush) 10 ml QSHIFT PRN IV AFTER MEDS AND BLOOD DRAWS 06/15/16 13:15 06/15/16 13:19 Iohexol (Omnipaque 300 Mg/ml) 75 ml 1X ONCE IV 06/15/16 14:00 06/15/16 14:01 DC 06/15/16 14:20 Enoxaparin Sodium (Lovenox 40mg Syringe) 40 mg Q12H SQ 06/15/16 21:00 06/15/16 20:15 Imaging: Imaging: CXR 06/15/16 IMPRESSION:: No acute finding. No significant change. Chest CTA 06/15/16 IMPRESSION: No acute finding seen in the chest. Negative study for pulmonary embolus. Several scattered parenchymal granulomas and calcified mediastinal lymph nodes. There is a small noncalcified nodule in the right upper lobe. Cholelithiasis. Abd US 06/15/16 IMPRESSION: Cholelithiasis PE: GEN: NAD, overweight HEENT: Atraumatic, PERRL LUNGS: CTAB HEART: RRR ABD: NABS, S/ND/NT EXTREMITY: No edema SKIN: No rashes, no jaundice NEURO/PSYCH: A & O 3 A/P: A/P: Left shoulder pain, back pain -admitted for chest pain, plans for echocardiogram today Cholelithiasis -on CTA, US -denies abd pain, n/v GERD -h/o this, uses Tums; has used PPI and H2 blockers in the past -- Will ask surgery to see re: cholelithiasis and check hepatic panel. Has been started on PPI, would continue this. Consider EGD at some point, could be done as an outpatient. Screening colonoscopy around age 50. NEO BOYD June 16, 2016 10:31
[2016-06-16 10:57] LABS: ALBUMIN 2.8 g/dL (3.4-5.0); DIRECT BILIRUBIN 0.1 mg/dL (0.0-0.2); TOTAL BILIRUBIN 0.4 mg/dL (0.2-1.0)
[2016-06-16] MEDS ORDERED: POTASSIUM CHLORIDE 20 MEQ TABLET.ER. PO ONE (12:15)
[2016-06-16 13:01] VITALS: BP 159/94
--- NOTE | 2016-06-16 13:01 | PDOC2 ---
CONSULT Date of Consult Date of Consult DATE: 06/16/16 TIME: 12:56 History of Present Illness Reason for Visit: The patient is a 45 year old female who reported to the hospital due to L shoulder and chest pain. She developed sharp pain yesterday with associated sweating and some heartburn. Denies nausea or vomiting, no abdominal pain or change in bowel function. During her evaluation she was found to have gallstone without signs of acute cholecystitis. Past Medical History Cardiovascular: HTN, Hyperlipidemia Pulmonary: No pertinent hx CENTRAL NERVOUS SYSTEM: Other (NO pertinent history) GI: GERD Heme/Onc: Anemia NOS Hepatobiliary: No pertinent hx Psych: No pertinent hx Musculoskeletal: Osteoarthritis, Other (morbid obesity) Rheumatologic: No pertinent hx Infectious disease: No pertinent hx ENT: No pertinent hx Renal/: No pertinent hx Endocrine: Diabetes Dermatology: No pertinent hx Past Surgical History Past Surgical History: Tubal Ligation Family History Family History: Heart Disease (brother and grandmother) Social History No ALCOHOL: none Drugs: None Lives: with Family Current Problem List Problem List Problems Medical Problems: (1) Chest pain Status: Acute (2) Epigastric abdominal pain Status: Acute Current Medications Current Medications Current Medications Aspirin (Children'S Aspirin) 324 mg 1X ONCE PO Last administered on 06/15/16 13:19; Start 06/15/16 at 13:15; Stop 06/15/16 at 13:16; Status DC Fentanyl Citrate 50 mcg 50 mcg PRN Q15MIN PRN IV PAIN GREATER THAN 3/10 Last administered on 06/15/16 13:18; Start 06/15/16 at 13:15; Stop 06/16/16 at 13:14 Sodium Chloride (Iv Sodium Chloride 0.9% 1000ml Bag) 1,000 ml @ 1,000 mls/hr Q1H IV Last administered on 06/15/16 13:18; Start 06/15/16 at 13:03; Stop at 14:02; Status DC Sodium Chloride (Normal Saline Flush) 10 ml QSHIFT PRN IV AFTER MEDS AND BLOOD DRAWS Last administered on 06/15/16 13:19; Start 06/15/16 at 13:15 Iohexol (Omnipaque 300 Mg/ml) 75 ml 1X ONCE IV Last administered on 06/15/16 14:20; Start 06/15/16 at 14:00; Stop 06/15/16 at 14:01; Status DC Acetaminophen (Tylenol) 325 mg PRN Q6HRS PRN PO MILD PAIN / TEMP; Start at 18:45 Acetaminophen/ Hydrocodone Bitart (Lortab 5/325) 1 tab PRN Q6HRS PRN PO MODERATE TO SEVERE PAIN; Start 06/15/16 at 18:45 Hydralazine HCl (Apresoline) 10 mg PRN Q4HRS PRN IVP ELEVATED BP, SEE COMMENTS ; Start 06/15/16 at 18:45 Ondansetron HCl (Zofran) 4 mg PRN Q8HRS PRN IV NAUSEA/VOMITING; Start 06/15/16 at 18:45 Albuterol Sulfate (Ventolin Neb Soln) 2.5 mg PRN Q4HRS PRN NEB SHORTNESS OF BREATH; Start 06/15/16 at 18:45 Aspirin (Children'S Aspirin) 81 mg DAILY PO Last administered on 06/16/16 10:20 ; Start 06/16/16 at 09:00 Ferrous Sulfate (Feosol) 325 mg DAILY PO Last administered on 06/16/16 10:20; Start 06/16/16 at 09:00 Lisinopril (Prinivil) 20 mg DAILY PO Last administered on 06/16/16 10:20; Start 06/16/16 at 09:00 Multivitamins (Thera M Plus) 1 tab DAILY PO Last administered on 06/16/16 10:20 ; Start 06/16/16 at 09:00 Pantoprazole Sodium (Protonix) 40 mg DAILYAC PO Last administered on 06/16/16 10:20; Start 06/16/16 at 07:30 Hydrochlorothiazide (Microzide) 12.5 mg DAILY PO Last administered on 06/16/16 10:20; Start 06/16/16 at 09:00 Nitroglycerin (Nitrostat) 0.4 mg PRN Q5MIN PRN SL CHEST PAIN; Start 06/15/16 at 19:00 Enoxaparin Sodium (Lovenox 40mg Syringe) 40 mg Q24H SQ ; Start 06/15/16 at 19:00 ; Stop 06/15/16 at 19:05; Status DC Enoxaparin Sodium (Lovenox 40mg Syringe) 40 mg Q12H SQ Last administered on 06/15t 20:15; Start 06/15/16 at 21:00 Atorvastatin Calcium (Lipitor) 10 mg QHS PO ; Start 06/16/16 at 21:00 Potassium Chloride (Klor-Con) 40 meq 1X ONCE PO ; Start 06/16/16 at 12:15; Stop 06/16/16 at 12:16; Status DC Active Scripts Active Omeprazole 20 Mg Capsule.dr 1 Cap PO DAILY Reported Multivitamins (Multivitamin) 1 Each Tablet 1 Tab PO DAILY Lisinopril-Hctz 20-12.5 Mg Tab (Lisinopril/Hydrochlorothiazide) 1 Each Tablet 1 Tab PO DAILY Aspirin 81 Mg Tab.chew 1 Tab PO DAILY Iron Supplement (Ferrous Sulfate) 325 Mg Tablet 1 Tab PO DAILY Allergies Allergies: Coded Allergies: No Known Drug Allergies (Unverified , 12/16/14) ROS General: No: Appetite, Chills, Fatigue, Malaise, Night Sweats, Other PSYCHOLOGICAL ROS: No: Anxiety, Behavioral Disorder, Concentration difficultie , Decreased libido, Depression, Disorientation, Hallucinations, Hostility, Irritablity, Memory difficulties, Mood Swings, Obsessive thoughts, Other, Physical abuse, Sexual abuse, Sleep disturbances, Suicidal ideation Eyes: No Blurry vision, No Decreased vision, No Double vision, No Dry eyes, No Excessive tearing, No Eye Pain, No Itchy Eyes, No Loss of vision, No Other, No Photophobia, No Scotomata, No Uses contacts, No Uses glasses HEENT: No: Epistaxis, Heacaches, Hearing change, Nasal congestion, Nasal discharge, Oral lesions, Other, Sinus pain, Sneezing, Snoring, Sore Throat, Tinnitus, Vertigo, Visual Changes, Vocal changes ALLERGY AND IMMUNOLOGY: No: Hives, Insect Bite Sensitivity, Itchy/Watery Eyes, Nasal Congestion, Other, Post Nasal Drip, Seasonal Allergies Hematological and Lymphatic: No: Bleeding Problems, Blood Clots, Blood Transfusions, Brusing, Night Sweats, Other, Pallor, Swollen Lymph Nodes ENDOCRINE: No: Breast Changes, Galactorrhea, Hair Pattern Changes, Hot Flashes , Malaise/lethargy, Mood Swings, Other, Palpitations, Polydipsia/polyuria, Skin Changes, Temperature Intolerance, Unexpected Weight Changes Respiratory: No: Cough, Hemoptysis, Orthopnea, Other, Pleuritic Pain, SOB with excertion, Shortness of breath, Sputum Changes, Stridor, Tachypnea, Wheezing Cardiovascular: yes Chest Pain Gastrointestinal: No Abdominal Pain, No Constipation, No Diarrhea, No Hematochezia, No Melena, No Nausea, No Other, No Vomiting Genitourinary: No , No , No , No , No , No , No , No Discharge, No Dysuria, No Flank Pain, No Frequency, No Hematuria, No Incontinence, No Other, No Pain, No Retention, No Urgency Musculoskeletal: No Gait Disturbance, No Joint Pain, No Joint Stiffness, No Joint Swelling, No Muscle Pain, No Muscular Weakness, No Other, No Pain In:, No Swelling In: Neurological: No Behavorial Changes, No Bowel/Bladder ControlChng, No Confusion , No Dizziness, No Gait Disturbance, No Headaches, No Impaired Coord/balance, No Memory Loss, No Numbness/Tingling, No Other, No Seizures, No Speech Problems , No Tremors, No Visual Changes, No Weakness Skin: No Acne, No Dry Skin, No Eczema, No Hair Changes, No Lumps, No Mole Changes, No Mottling, No Nail Changes, No Other, No Pruritus, No Rash, No Skin Lesion Changes Physical Exam General: Alert, Oriented X3, Cooperative HEENT: Atraumatic Lungs: Clear to auscultation Heart: Regular rate Abdomen: Soft (morbidly obese), No tenderness Extremities: No clubbing, No cyanosis Skin: No rashes Neuro: Normal speech, Strength at 5/5 X4 ext Psych/Mental Status: Mental status NL MUSCULOSKELETAL: No joint tenderness, No deformity Vitals VITALS Vital Signs Date Time Temp Pulse Resp B/P Pulse Ox O2 Delivery O2 Flow Rate FiO2 06/16/16 10:20 160/65 06/16/16 08:00 Room Air 06/16/16 07:30 97.9 67 20 98 97.9 Labs Labs Laboratory Tests Test 06/15/16 12:58 06/15/16 13:10 06/15/16 13:45 06/16/16 05:10 Bedside Urine HCG, Qualitative Hcg negative (Negative) White Blood Count 9.2x10^3/uL (4.0-11.0) 7.0x10^3/uL (4.0-11.0) Red Blood Count 4.57x10^6/uL (3.50-5.40) 4.12x10^6/uL (3.50-5.40) Hemoglobin 13.9g/dL (12.0-15.5) 12.5g/dL (12.0-15.5) Hematocrit 42.4% (36.0-47.0) 38.3% (36.0-47.0) Mean Corpuscular Volume 93fL (79-100) 93fL (79-100) Mean Corpuscular Hemoglobin 31pg (25-35) 30pg (25-35) Mean Corpuscular Hemoglobin Concent 33g/dL (31-37) 33g/dL (31-37) Red Cell Distribution Width 13.5% (11.5-14.5) 13.4% (11.5-14.5) Platelet Count 252x10^3/uL (140-400) 201x10^3/uL (140-400) Neutrophils (%) (Auto) 62% (31-73) 53% (31-73) Lymphocytes (%) (Auto) 26% (24-48) 36% (24-48) Monocytes (%) (Auto) 11% (0-9) 10% (0-9) Eosinophils (%) (Auto) 1% (0-3) 1% (0-3) Basophils (%) (Auto) 1% (0-3) 0% (0-3) Neutrophils # (Auto) 5.6x10^3uL (1.8-7.7) 3.7x10^3uL (1.8-7.7) Lymphocytes # (Auto) 2.4x10^3/uL (1.0-4.8) 2.5x10^3/uL (1.0-4.8) Monocytes # (Auto) 1.0x10^3/uL (0.0-1.1) 0.7x10^3/uL (0.0-1.1) Eosinophils # (Auto) 0.0x10^3/uL (0.0-0.7) 0.0x10^3/uL (0.0-0.7) Basophils # (Auto) 0.1x10^3/uL (0.0-0.2) 0.0x10^3/uL (0.0-0.2) D-Dimer (Stephani) 0.56ug/mlFEU (0.00-0.50) Sodium Level 137mmol/L (136-145) 140mmol/L (136-145) Potassium Level 4.1mmol/L (3.5-5.1) 3.5mmol/L (3.5-5.1) Chloride Level 101mmol/L (98-107) 104mmol/L (98-107) Carbon Dioxide Level 32mmol/L (21-32) 30mmol/L (21-32) Anion Gap 4 (6-14) 6 (6-14) Blood Urea Nitrogen 11mg/dL (7-20) 8mg/dL (7-20) Creatinine 0.7mg/dL (0.6-1.0) 0.8mg/dL (0.6-1.0) Estimated GFR (Cockcroft-Gault) 109.5 93.9 Glucose Level 124mg/dL (70-99) 111mg/dL (70-99) Calcium Level 9.1mg/dL (8.5-10.1) 8.6mg/dL (8.5-10.1) Magnesium Level 1.7mg/dL (1.8-2.4) Creatine Kinase 161U/L (26-192) Creatine Kinase MB (Mass) 1.0ng/mL (0.0-3.6) Creatine Kinase MB Relative Index 0.6% (0-4) Troponin I Quantitative 0.027ng/mL (0.000-0.055) < 0.017ng/mL (0.000-0.055) XF-Odx-F-Type Natriuretic Peptide 290pg/mL (0-124) Lipase 104U/L (73-393) Urine Collection Type Unknown Urine Color Yellow Urine Clarity Clear Urine pH 7.0 Urine Specific [place] 1.020 Urine Protein Negativemg/dL (NEG-TRACE) Urine Glucose (UA) Negativemg/dL (NEG) Urine Ketones (Stick) Negativemg/dL (NEG) Urine Blood Negative (NEG) Urine Nitrite Negative (NEG) Urine Bilirubin Negative (NEG) Urine Urobilinogen Dipstick 1.0mg/dL (0.2 mg/dL) Urine Leukocyte Esterase Small (NEG) Urine RBC 0/HPF (0-2) Urine WBC Occ/HPF (0-4) Urine Squamous Epithelial Cells Many/LPF Urine Bacteria Few/HPF (0-FEW) Urine Mucus Slight/LPF Total Bilirubin 0.4mg/dL (0.2-1.0) Direct Bilirubin 0.1mg/dL (0.0-0.2) Aspartate Amino Transf (AST/SGOT) 16U/L (15-37) Alanine Aminotransferase (ALT/SGPT) 18U/L (14-59) Alkaline Phosphatase 53U/L (46-116) Total Protein 7.0g/dL (6.4-8.2) Albumin 2.8g/dL (3.4-5.0) Triglycerides Level 165mg/dL (0-150) Cholesterol Level 188mg/dL (0-200) LDL Cholesterol, Calculated 111mg/dL (0-100) VLDL Cholesterol, Calculated 33mg/dL (0-40) Non-HDL Cholesterol Calculated 144mg/dL (0-129) HDL Cholesterol 44mg/dL (40-60) Cholesterol/HDL Ratio 4.3 Test 06/16/16 11:05 Troponin I Quantitative < 0.017ng/mL (0.000-0.055) Laboratory Tests Test 06/15/16 12:58 06/15/16 13:10 06/15/16 13:45 06/16/16 05:10 Bedside Urine HCG, Qualitative Hcg negative (Negative) White Blood Count 9.2x10^3/uL (4.0-11.0) 7.0x10^3/uL (4.0-11.0) Red Blood Count 4.57x10^6/uL (3.50-5.40) 4.12x10^6/uL (3.50-5.40) Hemoglobin 13.9g/dL (12.0-15.5) 12.5g/dL (12.0-15.5) Hematocrit 42.4% (36.0-47.0) 38.3% (36.0-47.0) Mean Corpuscular Volume 93fL (79-100) 93fL (79-100) Mean Corpuscular Hemoglobin 31pg (25-35) 30pg (25-35) Mean Corpuscular Hemoglobin Concent 33g/dL (31-37) 33g/dL (31-37) Red Cell Distribution Width 13.5% (11.5-14.5) 13.4% (11.5-14.5) Platelet Count 252x10^3/uL (140-400) 201x10^3/uL (140-400) Neutrophils (%) (Auto) 62% (31-73) 53% (31-73) Lymphocytes (%) (Auto) 26% (24-48) 36% (24-48) Monocytes (%) (Auto) 11% (0-9) 10% (0-9) Eosinophils (%) (Auto) 1% (0-3) 1% (0-3) Basophils (%) (Auto) 1% (0-3) 0% (0-3) Neutrophils # (Auto) 5.6x10^3uL (1.8-7.7) 3.7x10^3uL (1.8-7.7) Lymphocytes # (Auto) 2.4x10^3/uL (1.0-4.8) 2.5x10^3/uL (1.0-4.8) Monocytes # (Auto) 1.0x10^3/uL (0.0-1.1) 0.7x10^3/uL (0.0-1.1) Eosinophils # (Auto) 0.0x10^3/uL (0.0-0.7) 0.0x10^3/uL (0.0-0.7) Basophils # (Auto) 0.1x10^3/uL (0.0-0.2) 0.0x10^3/uL (0.0-0.2) D-Dimer (Stephani) 0.56ug/mlFEU (0.00-0.50) Sodium Level 137mmol/L (136-145) 140mmol/L (136-145) Potassium Level 4.1mmol/L (3.5-5.1) 3.5mmol/L (3.5-5.1) Chloride Level 101mmol/L (98-107) 104mmol/L (98-107) Carbon Dioxide Level 32mmol/L (21-32) 30mmol/L (21-32) Anion Gap 4 (6-14) 6 (6-14) Blood Urea Nitrogen 11mg/dL (7-20) 8mg/dL (7-20) Creatinine 0.7mg/dL (0.6-1.0) 0.8mg/dL (0.6-1.0) Estimated GFR (Cockcroft-Gault) 109.5 93.9 Glucose Level 124mg/dL (70-99) 111mg/dL (70-99) Calcium Level 9.1mg/dL (8.5-10.1) 8.6mg/dL (8.5-10.1) Magnesium Level 1.7mg/dL (1.8-2.4) Creatine Kinase 161U/L (26-192) Creatine Kinase MB (Mass) 1.0ng/mL (0.0-3.6) Creatine Kinase MB Relative Index 0.6% (0-4) Troponin I Quantitative 0.027ng/mL (0.000-0.055) < 0.017ng/mL (0.000-0.055) HG-Qmf-F-Type Natriuretic Peptide 290pg/mL (0-124) Lipase 104U/L (73-393) Urine Collection Type Unknown Urine Color Yellow Urine Clarity Clear Urine pH 7.0 Urine Specific [place] 1.020 Urine Protein Negativemg/dL (NEG-TRACE) Urine Glucose (UA) Negativemg/dL (NEG) Urine Ketones (Stick) Negativemg/dL (NEG) Urine Blood Negative (NEG) Urine Nitrite Negative (NEG) Urine Bilirubin Negative (NEG) Urine Urobilinogen Dipstick 1.0mg/dL (0.2 mg/dL) Urine Leukocyte Esterase Small (NEG) Urine RBC 0/HPF (0-2) Urine WBC Occ/HPF (0-4) Urine Squamous Epithelial Cells Many/LPF Urine Bacteria Few/HPF (0-FEW) Urine Mucus Slight/LPF Total Bilirubin 0.4mg/dL (0.2-1.0) Direct Bilirubin 0.1mg/dL (0.0-0.2) Aspartate Amino Transf (AST/SGOT) 16U/L (15-37) Alanine Aminotransferase (ALT/SGPT) 18U/L (14-59) Alkaline Phosphatase 53U/L (46-116) Total Protein 7.0g/dL (6.4-8.2) Albumin 2.8g/dL (3.4-5.0) Triglycerides Level 165mg/dL (0-150) Cholesterol Level 188mg/dL (0-200) LDL Cholesterol, Calculated 111mg/dL (0-100) VLDL Cholesterol, Calculated 33mg/dL (0-40) Non-HDL Cholesterol Calculated 144mg/dL (0-129) HDL Cholesterol 44mg/dL (40-60) Cholesterol/HDL Ratio 4.3 Test 06/16/16 11:05 Troponin I Quantitative < 0.017ng/mL (0.000-0.055) Assessment/Plan Assessment/Plan L arm, chest pain; gallstones. Not clear that symptoms are due to gallstones, would seem unlikely; cardiac eval in progress with echo later today. I explained the significance of gallstones with the patient and the treatment if gallstones become symptomatic. At this time it is not clear that her symptoms are related to the gallbladder; plan for observation only, she is aware of the expected symptoms from gallbladder disease and will contact me if she develops any problems. Thanks for the consult! We will be available as needed. EWA BONE MD June 16, 2016 13:01
[2016-06-16] MEDS ORDERED: SULFUR HEXAFLUORIDE MICROSPHR 25 MG VIAL. IVP ONE ×2 (13:57→14:15)
--- NOTE | 2016-06-16 14:29 | CARD ---
APPROVED REPORT EXAM: Two-dimensional and M-mode echocardiogram with Doppler, color Doppler with contrast. Other Information Quality : Average Rhythm : NSR INDICATION Chest Pain Echo Enhancing Agent Indication: Endocardial border delineation Agent/Amount Used: Lumason 1mL 2D DIMENSIONS RVDd3.6 (2.9-3.5cm)Left Atrium(2D)4.0 (1.6-4.0cm) IVSd0.7 (0.7-1.1cm)Aortic Root(2D)2.7 (2.0-3.7cm) LVDd5.8 (3.9-5.9cm)LVOT Diameter2.1 (1.8-2.4cm) PWd0.7 (0.7-1.1cm)LVDs4.4 (2.5-4.0cm) FS (%) 24.2 %SV77.7 ml LVEF(%)52.5 (>50%) Aortic Valve AoV Peak Braulio.110.8cm/sAoV VTI23.2cm AO Peak GR.4.9mmHgLVOT Peak Braulio.91.3cm/s LVOT VTI 19.93cmAO Mean GR.3mmHg TERA (VMAX)2.99bf7ERF (VTI)3.04cm2 Mitral Valve MV E Tewlfmdd19.9cm/sMV DECEL [id number] MV A Rxgkklga80.6cm/sMV E Mean Gr.1mmHg MV UCM35ftW/A Ratio1.0 MV A [id number] (PHT)4.02cm2 TDI E/Lateral E'5.4E/Medial E'7.4 Pulmonary Valve PV Peak Lanrexej95.9cm/sPV Peak Grad.3mmHg RVOT VTI14.3cm Tricuspid Valve TR P. Rpyvornp860zm/sRAP GNUAFAUY8csDt TR Peak Gr.74ipJhVVEI52sgBk Pulmonary Vein S1 Hicvrivx31.0cm/sD2 Fxdmmnub78.9cm/s LEFT VENTRICLE The left ventricle is normal size. There is normal left ventricular wall thickness. Left ventricle sy stolic function is normal. The Ejection Fraction is 50-55%. There is normal LV segmental wall motion. The left ventricular diastolic function and filling is normal for age. There is no ventricular septa l defect visualized. RIGHT VENTRICLE The right ventricle is normal size. The right ventricular systolic function is normal. ATRIA The left atrium size is normal. The right atrium size is normal. The interatrial septum is intact wit h no evidence for an atrial septal defect or patent foramen ovale as noted on 2-D or Doppler imaging. AORTIC VALVE The aortic valve is normal in structure and function. The aortic valve is trileaflet. Doppler and Col or Flow revealed no significant aortic regurgitation. There is no significant aortic valvular stenosi s. MITRAL VALVE The mitral valve is normal in structure and function. There is no mitral valve stenosis. Doppler and Color Flow revealed trace to mild mitral regurgitation. TRICUSPID VALVE The tricuspid valve is not well visualized. Doppler and Color Flow revealed mild tricuspid regurgitat ion. The PA pressure was estimated at 35 mmHg. There is no tricuspid valve stenosis. PULMONIC VALVE The pulmonic valve is not well visualized. Doppler and Color Flow revealed no pulmonic valvular regur gitation. There is no pulmonic valvular stenosis. GREAT VESSELS The aortic root is normal in size. Normal pulmonary venous flow (Doppler). The IVC is normal in size and collapses >50% with inspiration. PERICARDIAL EFFUSION There is no evidence of significant pericardial effusion. Critical Notification Critical Value: No <Conclusion> The left ventricle is normal size. Left ventricle systolic function is normal. The Ejection Fraction is 50-55%. There is normal left ventricular wall thickness. There is no significant aortic valvular stenosis. Doppler and Color Flow revealed no significant aortic regurgitation. Doppler and Color Flow revealed trace to mild mitral regurgitation. Doppler and Color Flow revealed mild tricuspid regurgitation. The PA pressure was estimated at 35 mmHg. There is no evidence of significant pericardial effusion.
[2016-06-16] MEDS ORDERED: ATORVASTATIN CALCIUM 10 MG TABLET. PO SCH (21:00)
== END 2016-06-16 16:00 | disposition home or self-care (01) | DRG 392 ==
LOC: ER 12:52 → 2 NORTH 14:04
PROVIDERS: ADMIT Internal Medicine; ATTEND Internal Medicine
DX: K21.9 Gastro-esophageal reflux disease without esophagitis (principal); Z68.42 Body mass index [BMI] 45.0-49.9, adult; E44.0 Moderate protein-calorie malnutrition; E11.9 Type 2 diabetes mellitus without complications; I10 Essential (primary) hypertension; E66.01 Morbid (severe) obesity due to excess calories; E78.5 Hyperlipidemia, unspecified; M19.90 Unspecified osteoarthritis, unspecified site; J84.10 Pulmonary fibrosis, unspecified; K80.20 Calculus of gallbladder without cholecystitis without obstruction; M25.512 Pain in left shoulder; Z82.49 Family history of ischemic heart disease and other diseases of the circulatory system; Z98.51 Tubal ligation status
CPT/HCPCS: 99285; C8929; 36415; 71020; 71275; 76700; 80048; 80061; 80076; 81001; 81025; 82553; 83690; 83735; 83880; 84484; 85027; 85379; 93005; 94250; 96361; 96374; J1650; J3010; J7030; Q9967; Q9950

== ENCOUNTER 2016-08-29 16:41 | Emergency (ER) | payer MEDICARE ==
[~2016-08-29] VITALS: Ht 172.7 cm; Wt 160.6 kg
[~2016-08-29 16:41] MED LIST changes: +ASPI-630 PO; -ASPI81TA2 PO; +MULT1TAB52 PO
[2016-08-29 16:47] VITALS: BP 196/86
[2016-08-29] MEDS ORDERED: METH-37 PO (17:20)
[2016-08-29] MEDS ORDERED: TRAM-48 PO (17:20)
--- NOTE | 2016-08-29 17:20 | PHYS DOC ---
Past Medical History Past Medical History: Anemia, Diabetes-Type II, Hypertension, Other Additional Past Medical Histor: BORDERLINE DIABETIC Past Surgical History: Tubal ligation Alcohol Use: Occasionally Drug Use: None Adult General Chief Complaint Chief Complaint: UPPER EXTREMITY PAIN HPI HPI Patient is a 45 year old female with history of hypertension and diabetes type 2 who presents today with left shoulder pain and bilateral low back pain mild in nature that began a week ago after she started kickboxing classes and aerobics classes for weight loss. She weighs 354 pounds. Patient states the pain is worse on movement of the left shoulder. Review of Systems Review of Systems Constitutional: Denies fever or chills [] Eyes: Denies change in visual acuity, redness, or eye pain [] HENT: Denies nasal congestion or sore throat [] Respiratory: Denies cough or shortness of breath [] Cardiovascular: No additional information not addressed in HPI [] GI: Denies abdominal pain, nausea, vomiting, bloody stools or diarrhea [] : Denies dysuria or hematuria [] Musculoskeletal: Left shoulder pain and low back pain Integument: Denies rash or skin lesions [] Neurologic: Denies headache, focal weakness or sensory changes [] Endocrine: Denies polyuria or polydipsia [] Allergies Allergies Allergies Coded Allergies Type Severity Reaction Last Updated Verified No Known Drug Allergies 12/16/14 No Physical Exam Physical Exam Constitutional: Well developed, well nourished, no acute distress, non-toxic appearance. [] HENT: Normocephalic, atraumatic, bilateral external ears normal, oropharynx moist, no oral exudates, nose normal. [] Eyes: PERRLA, EOMI, conjunctiva normal, no discharge. [] Neck: Normal range of motion, no tenderness, supple, no stridor. [] Cardiovascular:Heart rate regular rhythm, no murmur [] Lungs & Thorax: Bilateral breath sounds clear to auscultation [] Abdomen: Bowel sounds normal, soft, no tenderness, no masses, no pulsatile masses. [] Skin: Warm, dry, no erythema, no rash. [] Back: Overweight patient Paraspinal muscle tenderness diffusely to bilateral low lumbar spine, no midline lumbar spine tenderness, no CVA tenderness. [] Extremities: Left shoulder with no obvious deformity, no edema and ecchymosis, no tenderness on exam, full range of motion to the left shoulder. Adequate abduction and adduction of the left shoulder. +2 left radial pulse. Cap refill less than 2 seconds the left upper extremity, adequate radial medial and ulnar sensation to the right upper extremity. Neurologic: Alert and oriented X 3, normal motor function, normal sensory function, no focal deficits noted. [] Psychologic: Affect normal, judgement normal, mood normal. [] Current Patient Data Vital Signs Vital Signs Date Time Temp Pulse Resp B/P (MAP) Pulse Ox O2 Delivery O2 Flow Rate FiO2 08/29/16 16:47 98.0 91 18 196/86 (122) 96 Room Air 98.0 EKG EKG [] Radiology/Procedures Radiology/Procedures [] Course & Med Decision Making Course & Med Decision Making Pertinent Labs and Imaging studies reviewed. (See chart for details) Patient is in the ED with left shoulder strain and low back pain after starting aerobics classes and kickboxing classes for weight loss one week ago. She is currently 354 pounds. I encouraged her to continue doing this lessens. Discharge her with Ultram and Robaxin. Blood pressure was elevated at 196/86 with no headache or chest pain she states she has hx of HTN. I recommended she rechecks it at home. Requested her to make sure she is taking her medicines and let her PCP know her BP's are running high. Nicolette Disclaimer Nicolette Disclaimer This electronic medical record was generated, in whole or in part, using a voice recognition dictation system. Departure Departure Impression: Primary Impression: Left shoulder strain Additional Impressions: Low back pain Hypertension Disposition: HOME, SELF-CARE Condition: STABLE Referrals: UNKNOWN PCP NAME (PCP) Follow-up with your own doctor in one week Patient Instructions: Back Pain, Adult, Hypertension, Shoulder Sprain Additional Instructions: You were seen for left shoulder strain and low back pain from kickboxing and aerobics. This are very good form of exercise for you continue doing them. Recheck your blood pressure at home and follow-up with your own doctor if it is still elevated. Come back to the ED if you have any concerns regarding your blood pressure. Take the prescribed medicines as needed. Scripts Methocarbamol (ROBAXIN) 500 Mg Tablet 1 TAB PO TID, #30 TAB Prov: MUTUNGA,VASHTI BACK PANEL PADDER 08/29/16 Tramadol Hcl (ULTRAM) 50 Mg Tablet 1 TAB PO Q6HRS, #30 TAB Prov: SUNVASHTI ESCAMILLA ORIN 08/29/16 Problem Qualifiers Primary Impression: Left shoulder strain Encounter type: initial encounter Qualified Codes: S46.912A - Strain of unspecified muscle, fascia and tendon at shoulder and upper arm level, left arm , initial encounter Additional Impressions: Low back pain Chronicity: acute Back pain laterality: bilateral Sciatica presence: without sciatica Qualified Codes: M54.5 - Low back pain Hypertension Hypertension type: unspecified Qualified Codes: I10 - Essential (primary) hypertension SNUVASHTI ESCAMILLA ORIN Aug 29, 2016 17:20
== END 2016-08-29 17:34 | disposition home or self-care (01) ==
LOC: ER 16:41
DX: S46.912A Strain of unspecified muscle, fascia and tendon at shoulder and upper arm level, left arm, initial encounter (principal); M54.5 Low back pain; I10 Essential (primary) hypertension; E11.9 Type 2 diabetes mellitus without complications; Z98.51 Tubal ligation status; Y93.B9 Activity, other involving muscle strengthening exercises; Y93.A3 Activity, aerobic and step exercise; Y92.89 Other specified places as the place of occurrence of the external cause; Y99.8 Other external cause status
CPT/HCPCS: 99283

== ENCOUNTER 2016-10-17 15:19 | Emergency (ER) | payer MEDICARE ==
[~2016-10-17] VITALS: Ht 180.3 cm; Wt 133.8 kg
[~2016-10-17 15:19] MED LIST changes: +METH-37 PO; +TRAM-48 PO
--- NOTE | 2016-10-17 15:57 | PHYS DOC ---
Past Medical History Past Medical History: Anemia, Diabetes-Type II, Hypertension, Other Additional Past Medical Histor: BORDERLINE DIABETIC Past Surgical History: Tubal ligation Alcohol Use: Occasionally Drug Use: None Adult General Chief Complaint Chief Complaint: SHOULDER INJURY HPI HPI Patient is a 45 year old female with history of prediabetes, hypertension, who presents today with 7 out of 10 sharp intermittent episodes of left lateral neck pain and left shoulder that began this morning. Patient states the pain is worse on movement. She states sometimes when the pain occurs she gets nauseated due too the intensity of the pain. Patient denies any chest pain. Denies any shortness of breath. She states she has had multiple cardiac workups including a stress test last month that was negative. She states she has seen by her primary care doctor about this shoulder pain and was sent to physical therapy last month. ECP Dr. Vergara at [facility][Note 3]. Review of Systems Review of Systems Constitutional: Denies fever or chills [] Eyes: Denies change in visual acuity, redness, or eye pain [] HENT: Denies nasal congestion or sore throat [] Respiratory: Denies cough or shortness of breath [] Cardiovascular: See history of present illness GI: Denies abdominal pain, nausea, vomiting, bloody stools or diarrhea [] : Denies dysuria or hematuria [] Musculoskeletal: Left lateral neck pain and left shoulder pain Integument: Denies rash or skin lesions [] Neurologic: Denies headache, focal weakness or sensory changes [] Current Medications Current Medications Current Medications Medications (Trade) Dose Ordered Sig/[facility] Start Time Stop Time Status Last Admin Dose Admin Aspirin (Travis Aspirin) 325 mg 1X ONCE 10/17/16 16:00 10/17/16 16:01 DC 10/17/16 16:46 325 MG Morphine Sulfate 4 mg PRN Q15MIN PRN 10/17/16 16:00 10/18/16 15:59 10/17/16 16:47 4 MG Ondansetron HCl (Zofran) 4 mg 1X ONCE 10/17/16 16:00 10/17/16 16:01 DC 10/17/16 16:46 4 MG Allergies Allergies Allergies Coded Allergies Type Severity Reaction Last Updated Verified No Known Drug Allergies 12/16/14 No Physical Exam Physical Exam Constitutional: Well developed, well nourished, no acute distress, non-toxic appearance. [] HENT: Normocephalic, atraumatic, bilateral external ears normal, oropharynx moist, no oral exudates, nose normal. [] Eyes: PERRLA, EOMI, conjunctiva normal, no discharge. [] Neck: Normal range of motion, no tenderness, supple, no stridor. [] Cardiovascular:Heart rate regular rhythm, no murmur [] Lungs & Thorax: Bilateral breath sounds clear to auscultation [] Abdomen: Bowel sounds normal, soft, no tenderness, no masses, no pulsatile masses. [] Skin: Warm, dry, no erythema, no rash. [] Back: No tenderness, no CVA tenderness. [] Extremities: Left shoulder with no obvious deformity, diffuse tenderness on the ACM joint of the left shoulder. Full range of motion to the left shoulder though pain noted during range of motion. Adequate abduction and adduction of the left shoulder. Neurologic: Alert and oriented X 3, normal motor function, normal sensory function, no focal deficits noted. [] Psychologic: Affect normal, judgement normal, mood normal. [] Current Patient Data Vital Signs Vital Signs Date Time Temp Pulse Resp B/P (MAP) Pulse Ox O2 Delivery O2 Flow Rate FiO2 10/17/16 17:30 Room Air 10/17/16 15:44 98.2 80 16 98 98.2 Lab Values Laboratory Tests Test 10/17/16 15:15 10/17/16 16:00 10/17/16 16:30 POC Urine HCG, Qualitative Hcg negative (Negative) Urine Collection Type Unknown Urine Color Yellow Urine Clarity Clear Urine pH 5.5 Urine Specific [place] 1.010 Urine Protein Negative mg/dL (NEG-TRACE) Urine Glucose (UA) Negative mg/dL (NEG) Urine Ketones (Stick) Negative mg/dL (NEG) Urine Blood Negative (NEG) Urine Nitrite Negative (NEG) Urine Bilirubin Negative (NEG) Urine Urobilinogen Dipstick 0.2 mg/dL (0.2 mg/dL) Urine Leukocyte Esterase Trace (NEG) Urine RBC 0 /HPF (0-2) Urine WBC 0 /HPF (0-4) Urine Squamous Epithelial Cells Few /LPF Urine Bacteria Few /HPF (0-FEW) Urine Opiates Screen Neg (NEG) Urine Methadone Screen Neg (NEG) Urine Barbiturates Neg (NEG) Urine Phencyclidine Screen Neg (NEG) Urine Amphetamine/Methamphetamine Neg (NEG) Urine Benzodiazepines Screen Neg (NEG) Urine Cocaine Screen Neg (NEG) Urine Cannabinoids Screen Neg (NEG) Urine Ethyl Alcohol Neg (NEG) White Blood Count 5.9 x10^3/uL (4.0-11.0) Red Blood Count 4.35 x10^6/uL (3.50-5.40) Hemoglobin 13.5 g/dL (12.0-15.5) Hematocrit 40.0 % (36.0-47.0) Mean Corpuscular Volume 92 fL (79-100) Mean Corpuscular Hemoglobin 31 pg (25-35) Mean Corpuscular Hemoglobin Concent 34 g/dL (31-37) Red Cell Distribution Width 12.9 % (11.5-14.5) Platelet Count 184 x10^3/uL (140-400) Neutrophils (%) (Auto) 59 % (31-73) Lymphocytes (%) (Auto) 28 % (24-48) Monocytes (%) (Auto) 11 % (0-9) H Eosinophils (%) (Auto) 1 % (0-3) Basophils (%) (Auto) 1 % (0-3) Neutrophils # (Auto) 3.5 x10^3uL (1.8-7.7) Lymphocytes # (Auto) 1.7 x10^3/uL (1.0-4.8) Monocytes # (Auto) 0.7 x10^3/uL (0.0-1.1) Eosinophils # (Auto) 0.0 x10^3/uL (0.0-0.7) Basophils # (Auto) 0.1 x10^3/uL (0.0-0.2) Prothrombin Time 12.2 SEC (11.7-14.0) Prothrombin Time INR 1.0 (0.8-1.1) Sodium Level 139 mmol/L (136-145) Potassium Level 3.2 mmol/L (3.5-5.1) L Chloride Level 98 mmol/L (98-107) Carbon Dioxide Level 35 mmol/L (21-32) H Anion Gap 6 (6-14) Blood Urea Nitrogen 12 mg/dL (7-20) Creatinine 0.8 mg/dL (0.6-1.0) Estimated GFR (Cockcroft-Gault) 93.9 Glucose Level 102 mg/dL (70-99) H Calcium Level 8.9 mg/dL (8.5-10.1) Magnesium Level 1.7 mg/dL (1.8-2.4) L Creatine Kinase 150 U/L (26-192) Creatine Kinase MB (Mass) 0.8 ng/mL (0.0-3.6) Creatine Kinase MB Relative Index 0.5 % (0-4) Troponin I Quantitative < 0.017 ng/mL (0.000-0.055) UB-Vvb-L-Type Natriuretic Peptide 54 pg/mL (0-124) Thyroid Stimulating Hormone (TSH) 0.797 uIU/mL (0.358-3.74) Laboratory Tests 10/17/16 16:30 Laboratory Tests 10/17/16 16:30 EKG EKG Interpreted by Dr. Becker sinus rhythm HR 75 no STEMI[] Radiology/Procedures Radiology/Procedures [] Course & Med Decision Making Course & Med Decision Making Pertinent Labs and Imaging studies reviewed. (See chart for details) This is a 45-year-old female patient presenting to the ED today with left lateral neck pain and left shoulder that began today. She has history of shoulder pain and has had physical therapy a couple months ago for this pain. Due to her medical history including pre-diabetes, hypertension, overweight, we did a cardiac rule out workout in the ED which was negative. Potassium was 3.2, we gave 40 mEq of potassium in the ED and encouraged her to increase dietary potassium intake. Chest x-ray interpreted by radiologist is negative for any acute findings, left shoulder x-rays interpreted by radiologist were noted for DJD of the left shoulder, and calcified tendonosis of the left shoulder. Provided this patient an orthopedic doctor for follow-up. Discharge her with Robaxin and Ultram. Provided return precautions. Discharged in stable condition. Dragon Disclaimer Dragon Disclaimer This electronic medical record was generated, in whole or in part, using a voice recognition dictation system. Departure Departure Impression: Primary Impression: Chronic left shoulder pain Additional Impressions: Chronic neck pain Hypokalemia Tendinitis of shoulder Disposition: 01 HOME, SELF-CARE Condition: STABLE Referrals: JUAN GRIMM JR, MD (PCP) LOVE HAMMOND MD Follow-up in one week Patient Instructions: Calcific Tendinitis, Hypokalemia-Brief Additional Instructions: You were seen for left neck and left shoulder pain. We highly recommend you follow-up with the provided orthopedic doctor as well as a primary care doctor. Please return to the emergency room at any point your symptoms worsen. Do not drive or operate machinery on the medications we sent you home with. Your potassium was 3.2, this is slightly low, normal potassium is 3.5-5. Increase your dietary potassium intake through foods like bananas. Scripts Tramadol Hcl (ULTRAM) 50 Mg Tablet 1 TAB PO Q6HRS, #30 TAB Prov: VASHTI ROLLISN APRN 10/17/16 Methocarbamol (ROBAXIN) 500 Mg Tablet 1 TAB PO TID, #90 TAB Prov: VASHTI ROLLINS APRN 10/17/16 Problem Qualifiers Additional Impressions: Tendinitis of shoulder Laterality: left Qualified Codes: M75.82 - Other shoulder lesions, left shoulder VASHTI ROLLINS APRN Oct 17, 2016 15:57
[2016-10-17] MEDS ORDERED: MORPHINE SULFATE 4 MG/ML DISP.SYRIN. IV/SQ PRN (16:00)
[2016-10-17] MEDS ORDERED: ASPIRIN 325 MG TABLET PO ONE (16:00)
[2016-10-17] MEDS ORDERED: ONDANSETRON PF 4 MG/2 ML VIAL. IV ONE (16:00)
[2016-10-17 16:20] LABS: BILIRUBIN,URINE NEGATIVE (NEG); GLUCOSE,URINE NEGATIVE (NEG); NITRITE,URINE NEGATIVE (NEG); PH,URINE 5.5; PROTEIN,URINE NEGATIVE (NEG-TRACE); UROBILINOGEN,URINE 0.2 mg/dL (0.2 mg/dL)
[2016-10-17 16:27] LABS: BACTERIA,URINE FEW /HPF (0-FEW); RBC,URINE 0 /HPF (0-2); SQUAMOUS EPITHELIAL CELL,UR FEW /LPF; WBC,URINE 0 /HPF (0-4)
[2016-10-17 16:28] LABS: BARBITURATES NEG (NEG); BENZODIAZEPINES NEG (NEG); CANNABINOIDS NEG (NEG); COCAINE NEG (NEG); METHADONE NEG (NEG); OPIATES NEG (NEG); PHENCYCLIDINE NEG (NEG)
[2016-10-17 16:37] LABS: BASO # 0.1 x10^3/uL (0.0-0.2); BASO % 1 % (0-3); EOS % 1 % (0-3); HEMOGLOBIN 13.5 g/dL (12.0-15.5); LYMPH # 1.7 x10^3/uL (1.0-4.8); LYMPH % 28 % (24-48); MEAN CORPUSCULAR HEMOGLOBIN 31 pg (25-35); MEAN CORPUSCULAR HGB CONC 34 g/dL (31-37); MEAN CORPUSCULAR VOLUME 92 fL (79-100); MONO % 11 % (0-9); NEUT % 59 % (31-73); PLATELET COUNT 184 x10^3/uL (140-400); RED BLOOD COUNT 4.35 x10^6/uL (3.50-5.40); RED CELL DISTRIBUTION WIDTH 12.9 % (11.5-14.5); WHITE BLOOD COUNT 5.9 x10^3/uL (4.0-11.0)
[2016-10-17 16:45] LABS: PROTHROMBIN TIME PATIENT 12.2 SEC (11.7-14.0)
--- NOTE | 2016-10-17 16:48 | RAD ---
Examination: Single frontal view of the chest History: History of nausea, shoulder pain. Comparison: 06/15/2016 Findings: The cardiomediastinal silhouette grossly appears unremarkable. There is no acute infiltrate or visualized pneumothorax identified. There is a rounded airspace opacity identified in the right lower lobe of the lung likely granuloma stable since 2013. Impression: No acute cardiopulmonary findings.
--- NOTE | 2016-10-17 16:51 | RAD ---
Examination: 3 views of the left shoulder History: History of left shoulder pain Comparison: None available Findings: The humerus head is within the glenoid. There is no acute fracture or dislocation identified. Mild degenerative changes identified in the acromioclavicular joint and the glenohumeral joint. Small bone density identified at the attachment of the infraspinatus tendon to the greater tuberosity likely small enthesophyte or calcific tendinosis. Impression: 1. Mild degenerative changes glenohumeral joint and acromioclavicular joint. 2. Small bone density identified at the attachment of the infraspinatus tendon to the greater tuberosity likely small enthesophyte or calcific tendinosis.
[2016-10-17 16:54] LABS: CALCIUM 8.9 mg/dL (8.5-10.1); CREATININE 0.8 mg/dL (0.6-1.0); GFR 93.9; MAGNESIUM 1.7 mg/dL (1.8-2.4); POTASSIUM 3.2 mmol/L (3.5-5.1)
[2016-10-17 17:07] LABS: CKMB MASS 0.8 ng/mL (0.0-3.6)
[2016-10-17 17:30] VITALS: BP 143/67
[2016-10-17] MEDS ORDERED: METH-37 PO (17:47)
[2016-10-17] MEDS ORDERED: TRAM-48 PO (17:47)
[2016-10-17] MEDS ORDERED: POTASSIUM CHLORIDE 20 MEQ TABLET.ER. PO ONE (18:15)
--- NOTE | 2016-10-18 12:31 | EKG ---
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
== END 2016-10-17 17:55 | disposition home or self-care (01) ==
LOC: ER 15:19
DX: M75.82 Other shoulder lesions, left shoulder (principal); G89.29 Other chronic pain; M54.2 Cervicalgia; M25.512 Pain in left shoulder; E87.6 Hypokalemia; E11.9 Type 2 diabetes mellitus without complications; I10 Essential (primary) hypertension
CPT/HCPCS: 36415; 71010; 73030; 80048; 80307; 81001; 81025; 82553; 83735; 83880; 84443; 84484; 85025; 85610; 93005; 96374; 96375; 99285; J2270; J2405; G0479

== ENCOUNTER 2016-11-16 02:20 | Emergency (ER) | payer MEDICARE ==
[~2016-11-16] VITALS: Ht 180.3 cm; Wt 133.8 kg
[2016-11-16] MEDS ORDERED: ACET1TAB33 PO (02:54)
--- NOTE | 2016-11-16 02:55 | PHYS DOC ---
Past Medical History Past Medical History: Anemia, Diabetes-Type II, Hypertension, Other Additional Past Medical Histor: BORDERLINE DIABETIC Past Surgical History: Tubal ligation Alcohol Use: Occasionally Drug Use: None Adult General Chief Complaint Chief Complaint: SHOULDER INJURY HPI HPI Patient is a 45 year old who presents with the complaints of chronic left shoulder pain, patient is supposed to for follow-up with orthopedics but she has not done so yet. Patient describes left shoulder pain, upper chest at the clavicle pain and neck pain, pain is reproducible with movement and palpation. Patient denies any associated symptoms and specifically fevers, chills, shortness of air, diaphoresis, nausea, vomiting. Review of Systems Review of Systems Constitutional: Denies fever or chills [] Eyes: Denies change in visual acuity, redness, or eye pain [] HENT: Denies nasal congestion or sore throat [] Respiratory: Denies cough or shortness of breath [] Cardiovascular: No additional information not addressed in HPI [] GI: Denies abdominal pain Musculoskeletal: As per the history of present illness Integument: Denies rash or skin lesions [] Neurologic: Denies headache, focal weakness or sensory changes [] Allergies Allergies Allergies Coded Allergies Type Severity Reaction Last Updated Verified No Known Drug Allergies 12/16/14 No Physical Exam Physical Exam Constitutional: Well developed, well nourished, no acute distress, non-toxic appearance. [] HENT: Normocephalic, atraumatic Eyes: EOMI, conjunctiva normal, no discharge. [] Neck: Normal range of motion,, supple, no stridor. No LAD, no meningeal signs. Tenderness along the left trapezius and palpation reproduces the complaint Cardiovascular:Heart rate regular rhythm, no murmur, normal perfusion, equal pulses. Tenderness to palpation of the along the left clavicle and that her pre- existing complaint Lungs & Thorax: Bilateral breath sounds clear to auscultation, no tachypnea Abdomen: Nondistended, obese Skin: Warm, dry, no erythema, no rash. [] Back: No tenderness, no CVA tenderness. [] Extremities: No tenderness, no cyanosis, no DVT, ROM intact, no edema. No signs of septic joint, no laxity Neurologic: Alert and oriented X 3, normal motor function, normal gross sensory function, no focal deficits noted. [] Psychologic: Affect normal, judgement normal, mood normal. [] Current Patient Data Vital Signs Vital Signs Date Time Temp Pulse Resp B/P (MAP) Pulse Ox O2 Delivery O2 Flow Rate FiO2 11/16/16 02:32 98.7 87 18 97 Room Air 98.7 EKG EKG [] Radiology/Procedures Radiology/Procedures [] Course & Med Decision Making Course & Med Decision Making Pertinent Labs and Imaging studies reviewed. (See chart for details) [] Dragon Disclaimer Dragon Disclaimer This electronic medical record was generated, in whole or in part, using a voice recognition dictation system. Departure Departure Impression: Primary Impression: Tendinitis of shoulder Additional Impression: Chronic left shoulder pain Disposition: HOME, SELF-CARE Condition: STABLE Referrals: JUAN GRIMM JR, MD (PCP) Please follow-up with your doctor for recheck and reevaluation in 2-4 days, please follow-up with your orthopedic appointment Patient Instructions: Shoulder Pain Scripts Acetaminophen With Codeine (ACETAMINOPHEN-COD #3 TABLET) 1 Each Tablet 1 TAB PO TID Y for PAIN for 2 Days, #8 TAB Prov: Bernie DUNHAM MD 11/16/16 Problem Qualifiers Bernie DUNHAM MD Nov 16, 2016 02:55
[2016-11-16 02:59] VITALS: BP 187/109
[2016-11-16] MEDS ORDERED: DEXAMETHASONE SOD PHOS 4 MG/ML VIAL IM ONE (03:00)
[2016-11-16] MEDS ORDERED: KETOROLAC 30 MG/ML INJ. IM ONE (03:00)
== END 2016-11-16 02:59 | disposition home or self-care (01) ==
LOC: ER 02:20
DX: M75.92 Shoulder lesion, unspecified, left shoulder (principal); M54.2 Cervicalgia; G89.29 Other chronic pain; E11.9 Type 2 diabetes mellitus without complications; I10 Essential (primary) hypertension
CPT/HCPCS: 96372; 99284; J1100; J1885

== ENCOUNTER 2016-11-21 19:33 | Emergency (ER) | payer MEDICARE ==
[~2016-11-21] VITALS: Ht 180.3 cm; Wt 133.8 kg
[~2016-11-21 19:33] MED LIST changes: +ACET1TAB33 PO
[2016-11-21] MEDS ORDERED: ASPIRIN CHEWABLE 81 MG TABLET. PO ONE (19:45)
--- NOTE | 2016-11-21 19:55 | PHYS DOC ---
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 She was at work today and developed a pain in her lower mid chest at 1300 PM. She can't describe the pain. No radiation. No nausea or vomiting. No shortness of air. No recent travel. Had a "cold" one month ago and finished antibiotics but still has a lingering cough. She felt her heart "pulsating" earlier; not necessarily increasing in rate and felt slightly weak. No change in her medications. No leg pain but felt her right ankle "a bit swollen." No known injury. Followed at [facility] Review of Systems Review of Systems Constitutional: Denies fever or chills Eyes: Denies change in visual acuity, redness, or eye pain HENT: Denies nasal congestion or sore throat Respiratory: Denies cough or shortness of breath Cardiovascular: POS chest pain. GI: Denies abdominal pain, nausea, vomiting, bloody stools or diarrhea : Denies dysuria or hematuria Musculoskeletal: Denies back pain or joint pain; slight right ankle swelling. Integument: Denies rash or skin lesions Neurologic: Denies headache, focal weakness or sensory changes; no syncope. Family History Family History Positive heart disease in remote family members. Current Medications Current Medications Current Medications Medications (Trade) Dose Ordered Sig/[facility] Start Time Stop Time Status Last Admin Dose Admin Aspirin (Children'S Aspirin) 324 mg 1X ONCE 11/21/16 19:45 11/21/16 19:51 DC 11/21/16 19:50 324 MG Pantoprazole Sodium (Protonix) 40 mg 1X ONCE 11/21/16 21:00 11/21/16 21:01 DC 11/21/16 20:47 40 MG Allergies Allergies Allergies Coded Allergies Type Severity Reaction Last Updated Verified No Known Drug Allergies 12/16/14 No Physical Exam Physical Exam Constitutional: Well developed, well nourished, no acute distress, non-toxic appearance. HENT: Normocephalic, atraumatic, bilateral external ears normal, oropharynx moist, no oral exudates, nose normal. Eyes: PERRLA, EOMI, conjunctiva normal, no discharge. Neck: Normal range of motion, no tenderness, supple, no stridor. Cardiovascular:Heart rate regular rhythm, no murmur Lungs & Thorax: Bilateral breath sounds clear to auscultation Abdomen: Bowel sounds normal, soft, no tenderness, no masses, no pulsatile masses. Skin: Warm, dry, no erythema, no rash. Back: No tenderness, no CVA tenderness. Extremities: No tenderness, no cyanosis, no clubbing, ROM intact, no edema. Right ankle with no discernible swelling. Negative Anna's sign. Neurologic: Alert and oriented X 3, normal motor function, normal sensory function, no focal deficits noted. Psychologic: Affect normal, judgement normal, mood normal. Current Patient Data Vital Signs Vital Signs Date Time Temp Pulse Resp B/P (MAP) Pulse Ox O2 Delivery O2 Flow Rate FiO2 11/21/16 20:39 70 126/60 (82) 98 Room Air 11/21/16 19:35 98.1 18 98.1 Lab Values Laboratory Tests Test 11/21/16 19:52 White Blood Count 7.4 x10^3/uL (4.0-11.0) Red Blood Count 4.39 x10^6/uL (3.50-5.40) Hemoglobin 13.5 g/dL (12.0-15.5) Hematocrit 40.0 % (36.0-47.0) Mean Corpuscular Volume 91 fL (79-100) Mean Corpuscular Hemoglobin 31 pg (25-35) Mean Corpuscular Hemoglobin Concent 34 g/dL (31-37) Red Cell Distribution Width 13.2 % (11.5-14.5) Platelet Count 227 x10^3/uL (140-400) Neutrophils (%) (Auto) 49 % (31-73) Lymphocytes (%) (Auto) 37 % (24-48) Monocytes (%) (Auto) 12 % (0-9) H Eosinophils (%) (Auto) 1 % (0-3) Basophils (%) (Auto) 1 % (0-3) Neutrophils # (Auto) 3.7 x10^3uL (1.8-7.7) Lymphocytes # (Auto) 2.7 x10^3/uL (1.0-4.8) Monocytes # (Auto) 0.9 x10^3/uL (0.0-1.1) Eosinophils # (Auto) 0.1 x10^3/uL (0.0-0.7) Basophils # (Auto) 0.1 x10^3/uL (0.0-0.2) D-Dimer (Stephani) 0.49 ug/mlFEU (0.00-0.50) Sodium Level 137 mmol/L (136-145) Potassium Level 3.5 mmol/L (3.5-5.1) Chloride Level 98 mmol/L (98-107) Carbon Dioxide Level 33 mmol/L (21-32) H Anion Gap 6 (6-14) Blood Urea Nitrogen 13 mg/dL (7-20) Creatinine 0.8 mg/dL (0.6-1.0) Estimated GFR (Cockcroft-Gault) 93.9 BUN/Creatinine Ratio 16 (6-20) Glucose Level 94 mg/dL (70-99) Calcium Level 9.3 mg/dL (8.5-10.1) Magnesium Level 1.8 mg/dL (1.8-2.4) Total Bilirubin 0.2 mg/dL (0.2-1.0) Aspartate Amino Transferase (AST) 16 U/L (15-37) Alanine Aminotransferase (ALT) 22 U/L (14-59) Alkaline Phosphatase 62 U/L (46-116) Creatine Kinase 104 U/L (26-192) Creatine Kinase MB (Mass) 0.6 ng/mL (0.0-3.6) Creatine Kinase MB Relative Index 0.6 % (0-4) Troponin I Quantitative < 0.017 ng/mL (0.000-0.055) [id number] Natriuretic Peptide 27 pg/mL (0-124) Total Protein 8.3 g/dL (6.4-8.2) H Albumin 3.5 g/dL (3.4-5.0) Albumin/Globulin Ratio 0.7 (1.0-1.7) L Lipase 126 U/L (73-393) Serum Test, Qualitative Negative (NEG) Laboratory Tests 11/21/16 19:52 Laboratory Tests 11/21/16 19:52 EKG EKG EKG interpreted by myself at 1939 PM shows sinus rhythm, rate of 85, no acute ST changes, no STEMI. Radiology/Procedures Radiology/Procedures CXR interpreted by myself at 2030 PM: chronic opacity in the right lung. No change from prior. No acute findings; mediastinum normal. No pleural effusion or pneumothorax. Course & Med Decision Making Course & Med Decision Making Differential diagnosis for chest pain includes but is not limited to: Pericarditis, myocarditis, endocarditis, pneumothorax, pneumonia, aortic dissection, esophageal spasm, esophagitis, peptic ulcer disease, acute coronary syndrome, mediastinitis, Boerhaave syndrome, musculoskeletal chest wall pain, costochondritis, intercostal strain, rib fracture, pulmonary contusion, pneumonitis, pleural effusion, pericardial effusion, pericardial tamponode, and pleurisy. MACE Scoring: History: Highly suspicious (2 points); Moderately suspicious (1 point). Slightly suspicious (0 point). EKG: ST segment depression (2 points). Nonspecific repolarization disturbance ( 1 point). normal (0 point) Age: Greater than 65 (2 points), 65-45 (1 point); less than 45 years old (0 points). Risk factors:> 3 risk factors (2 points), 1-2 risk factors (one point), no risk factors (0 point). Troponin: > 2 times normal (2 points), 1-2 times normal (1 point) normal limits (0 point) Total score: __1____ Score % pts MACE/n MACE Policy 0-3: 32% 1.9% 0.05% Discharge 4-6: 51% 413/3136 13% 1.3% Observation Risk management 7-10: 17% 518/1045 50% 2.8% Observation Treatment, CAGb JOSE ROBERTO score for NSTEMI: Age 65: No=0; Yes=1 3 CAD risk factors: Family history of CAD, hypertension, hypercholesterolemia, diabetes, family history of CAD, or current smoker: No=0; Yes=1 Known CAD (stenosis 50%: No=0; Yes=1 ASA use in past 7 days: No=0; Yes=1 Severe angina ( 2 episodes in 24 hrs): No=0; Yes=[address] changes 0.5m: No=0; Yes=1 Positive cardiac marker: No=0; Yes=1 Score: 1 PERC RULE Criteria: Age < than 50 years Heart rate < 100 Oxygen saturation > 95% No hemoptysis No estrogen use No prior DVT or PE some unilateral leg swelling: right leg No surgery or trauma requiring hospitalization within the prior 4 weeks PERC rule not satisfied-D dimer ordered At 2030 PM: Lab unremarkable; normal cardiac enzymes; negative d dimer. reviewed findings w patient. Repeat Trop in 90 min. BP 133/72, sat 99%, P 80. She is resting comfortably and watching the [employer] on TV. She has not been taking her omeprazole daily. Will have her restart that daily. At 2200 PM: REPEAT TROP 0.00; home w precautions. I have spoken with the patient and/or caregivers. I have explained the patient' s condition, diagnosis and treatment plan based on the information available to me at this time. I have answered the patient's and/or caregiver's questions and addressed any concerns. The patient and/or caregivers have as good an understanding of the patient's diagnosis, condition and treatment plan as can be expected at this point. The patient's condition is stable and appropriate for discharge from the emergency department. The patient will pursue further outpatient evaluation with the primary care physician or other designated or consulting physician as outlined in the discharge instructions. The patient and/or caregivers are agreeable to this plan of care and follow-up instructions have been explained in detail. The patient and/or caregivers have received these instructions in written format and have expressed an understanding of the discharge instructions. The patient and/or caregivers are aware that any significant change in condition or worsening of symptoms should prompt an immediate return to this or the closest emergency department or a call to 911. Dragon Disclaimer Dragon Disclaimer This electronic medical record was generated, in whole or in part, using a voice recognition dictation system. Departure Departure Impression: Primary Impression: Chest pain Disposition: HOME, SELF-CARE Condition: STABLE Referrals: JUAN GRIMM JR, MD (PCP) Patient Instructions: Chest Pain (Nonspecific), Diet for Gastroesophageal Reflux Disease, Child, [id number] Scripts Pantoprazole Sodium (PANTOPRAZOLE SODIUM) 40 Mg Tablet. 40 MG PO DAILY, #30 TAB Prov: DYLON BOO MD 11/21/16 Problem Qualifiers Primary Impression: Chest pain Chest pain type: unspecified Qualified Codes: R07.9 - Chest pain, unspecified DYLON BOO MD Nov 21, 2016 19:55
[2016-11-21 19:59] LABS: BASO # 0.1 x10^3/uL (0.0-0.2); BASO % 1 % (0-3); EOS % 1 % (0-3); HEMOGLOBIN 13.5 g/dL (12.0-15.5); LYMPH # 2.7 x10^3/uL (1.0-4.8); LYMPH % 37 % (24-48); MEAN CORPUSCULAR HEMOGLOBIN 31 pg (25-35); MEAN CORPUSCULAR HGB CONC 34 g/dL (31-37); MEAN CORPUSCULAR VOLUME 91 fL (79-100); MONO % 12 % (0-9); NEUT % 49 % (31-73); PLATELET COUNT 227 x10^3/uL (140-400); RED BLOOD COUNT 4.39 x10^6/uL (3.50-5.40); RED CELL DISTRIBUTION WIDTH 13.2 % (11.5-14.5); WHITE BLOOD COUNT 7.4 x10^3/uL (4.0-11.0)
[2016-11-21 20:20] LABS: NEG OBC SER NEG; POS OBC SER POS
[2016-11-21 20:24] LABS: MAGNESIUM 1.8 mg/dL (1.8-2.4)
[2016-11-21 20:26] LABS: ALBUMIN 3.5 g/dL (3.4-5.0); ALBUMIN/GLOBULIN RATIO 0.7 (1.0-1.7); CALCIUM 9.3 mg/dL (8.5-10.1); CREATININE 0.8 mg/dL (0.6-1.0); GFR 93.9; POTASSIUM 3.5 mmol/L (3.5-5.1); TOTAL BILIRUBIN 0.2 mg/dL (0.2-1.0); TOTAL PROTEIN 8.3 g/dL (6.4-8.2)
[2016-11-21 20:35] LABS: CKMB MASS 0.6 ng/mL (0.0-3.6)
[2016-11-21] MEDS ORDERED: PANTOPRAZOLE 40 MG TABLET.DR. PO ONE (21:00)
[2016-11-21] MEDS ORDERED: PANT40TA5 PO (21:57)
[2016-11-21 22:00] VITALS: BP 122/66
--- NOTE | 2016-11-22 07:02 | EKG ---
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
--- NOTE | 2016-11-22 07:43 | RAD ---
Indication chest pain. A single view of the chest was obtained and is compared to a study 10/17/2016. The heart is at the upper limits of normal in size. A granuloma is noted in the right lung appearing similar to the previous study. There is no consolidated pneumonia significant pleural fluid collection or pneumothorax. The bony structures appear grossly intact. IMPRESSION: No acute or focal process is seen in the chest
== END 2016-11-21 22:25 | disposition home or self-care (01) ==
LOC: ER 19:33
DX: R07.89 Other chest pain (principal); I10 Essential (primary) hypertension; E11.9 Type 2 diabetes mellitus without complications; Z86.2 Personal history of diseases of the blood and blood-forming organs and certain disorders involving the immune mechanism
CPT/HCPCS: 36415; 71010; 80053; 82550; 82553; 83690; 83735; 83880; 84484; 84703; 85025; 85379; 93005; 99285-25

== ENCOUNTER 2016-11-28 20:22 | Emergency (ER) | payer MEDICARE ==
[~2016-11-28 20:22] MED LIST changes: +PANT40TA5 PO
[2016-11-28 20:42] VITALS: BP 144/89
[2016-11-28] MEDS ORDERED: SULF1TAB23 PO (20:59)
[2016-11-28] MEDS ORDERED: TRAM-48 PO (20:59)
[2016-11-28] MEDS ORDERED: NYST15OI TP (20:59)
--- NOTE | 2016-11-28 20:59 | PHYS DOC ---
Past Medical History Past Medical History: Anemia, Hypertension, Other Past Surgical History: Tubal ligation Alcohol Use: Occasionally Drug Use: None Adult General Chief Complaint Chief Complaint: SKIN RASH/ABSCESS [facility] Patient is a 46 year old female who presents with a rash behind the right ear that began 5 days ago. Patient denies any fever. She states she has body aches. Review of Systems Review of Systems Constitutional: Denies fever or chills [] Eyes: Denies change in visual acuity, redness, or eye pain [] HENT: Denies nasal congestion or sore throat [] Respiratory: Denies cough or shortness of breath [] Cardiovascular: No additional information not addressed in HPI [] GI: Denies abdominal pain, nausea, vomiting, bloody stools or diarrhea [] : Denies dysuria or hematuria [] Musculoskeletal: Denies back pain or joint pain [] Integument: rash behind the right ear Neurologic: Denies headache, focal weakness or sensory changes [] Allergies Allergies Allergies Coded Allergies Type Severity Reaction Last Updated Verified No Known Drug Allergies 12/16/14 No Physical Exam Physical Exam Constitutional: Well developed, well nourished, no acute distress, non-toxic appearance. [] HENT: Normocephalic, atraumatic, bilateral external ears normal, oropharynx moist, no oral exudates, nose normal. [] Eyes: PERRLA, EOMI, conjunctiva normal, no discharge. [] Neck: Normal range of motion, no tenderness, supple, no stridor. [] Cardiovascular:Heart rate regular rhythm, no murmur [] Lungs & Thorax: Bilateral breath sounds clear to auscultation [] Abdomen: Bowel sounds normal, soft, no tenderness, no masses, no pulsatile masses. [] Skin: Warm, dry, the back of the right ear with an area of erythema suspicious of cellulitis from a fungal infection. There is no drainage to the area. Back: No tenderness, no CVA tenderness. [] Extremities: No tenderness, no cyanosis, no clubbing, ROM intact, no edema. [] Neurologic: Alert and oriented X 3, normal motor function, normal sensory function, no focal deficits noted. [] Psychologic: Affect normal, judgement normal, mood normal. [] EKG EKG [] Radiology/Procedures Radiology/Procedures [] Course & Med Decision Making Course & Med Decision Making Pertinent Labs and Imaging studies reviewed. (See chart for details) Patient has cellulitis to the back of the right ear. She states her vaccines are up-to-date. She was discharged with Ultram for pain. Discharged with Bactrim , and nystatin. Instructed to use these medications as prescribed. f/u with her PCP in one week. Nicolette Disclaimer Dragon Disclaimer This electronic medical record was generated, in whole or in part, using a voice recognition dictation system. Departure Departure Impression: Primary Impression: Cellulitis of right ear Additional Impression: Cutaneous candidiasis Disposition: HOME, SELF-CARE Condition: STABLE Referrals: JUAN GRIMM JR, MD (PCP) Follow-up with your doctor next week Patient Instructions: Sarika Infection, Adult, Cellulitis, [id number] Additional Instructions: Please use the medication prescribed as ordered. Follow-up with the primary care doctor next week. Keep the affected area clean and dry. Scripts Tramadol Hcl (ULTRAM) 50 Mg Tablet 1 TAB PO Q6HRS, #30 TAB Prov: VASHTI ROLLINS APRN 11/28/16 Sulfamethoxazole/Trimethoprim (BACTRIM 400-80 MG TABLET) 1 Each Tablet 1 TAB PO BID, #20 TAB Prov: VASHTI ROLLINS APRN 11/28/16 Nystatin (NYSTATIN) 15 Gm Oint...g. 1 CRAIG TP TID, #15 GM Prov: VASHTI ROLLINS APRN 11/28/16 Problem Qualifiers VASHTI ROLLINS APRN Nov 28, 2016 20:59
== END 2016-11-28 21:25 | disposition home or self-care (01) ==
LOC: ER 20:22
DX: H60.11 Cellulitis of right external ear (principal); B37.2 Candidiasis of skin and nail; I10 Essential (primary) hypertension
CPT/HCPCS: 99283

== ENCOUNTER 2016-12-28 13:46 | Emergency (ER) | payer MEDICARE ==
[~2016-12-28] VITALS: Ht 180.3 cm; Wt 135.2 kg
[~2016-12-28 13:46] MED LIST changes: +NYST15OI TP; +SULF1TAB23 PO
--- NOTE | 2016-12-28 15:25 | PHYS DOC ---
Past Medical History Past Medical History: Anemia, Diabetes-Type II, Hypertension, Other Additional Past Medical Histor: BORDERLINE DIABETIC Past Surgical History: Tubal ligation Alcohol Use: Occasionally Drug Use: None Adult General Chief Complaint Chief Complaint: DIZZY/LIGHT HEADED HPI HPI Patient is a 46 year old F who presents with chest pain, lightheaded and dizziness. Patient states she was cleaning her house and after she was done and she became lightheaded and dizzy and developed some pain to both shoulders. Patient sat down and took 4 baby aspirin in which the chest pain got better however she felt like she was going to potentially pass out therefore came the emergency room for further evaluation. In the emergency room the patient has no symptoms and feels much better. Patient has no cardiac history. Patient's risk factors for cardiac disease as obesity, hypertension, prediabetes. Patient denies any fevers. Patient denies any shortness of breath. Patient denies any nausea/vomiting/diarrhea. Patient has no other complaints. Review of Systems Review of Systems GEN: Denies fevers, chills, sweats HEENT: Denies blurred vision, sore throat CV: Chest pain RESP: Denies shortness of air, cough GI: Denies n/v/d NEURO: Lightheadedness and dizziness MSK: Denies weakness, joint pain/swelling All other systems were reviewed and found to be within normal limits, except as documented in this note. Allergies Allergies Allergies Coded Allergies Type Severity Reaction Last Updated Verified No Known Drug Allergies 12/16/14 No Physical Exam Physical Exam GEN.: No apparent distress. Alert and oriented. HEENT: Head is normocephalic, atraumatic NECK: Supple. LUNGS: CTAB. HEART: RRR, S1, S2 present. Peripheral pulses intact ABDOMEN: Soft, nontender. Positive bowel sounds. EXTREMITIES: Without any cyanosis. NEUROLOGIC: Normal speech, normal tone PSYCHIATRIC: Normal affect, normal mood. SKIN: No ulcerations Current Patient Data Vital Signs Vital Signs Date Time Temp Pulse Resp B/P (MAP) Pulse Ox O2 Delivery O2 Flow Rate FiO2 12/28/16 16:07 69 18 98 12/28/16 14:46 98.2 166/87 (113) Room Air 98.2 Lab Values Laboratory Tests Test 12/28/16 14:54 12/28/16 14:55 12/28/16 15:03 Glucose (Fingerstick) 110 mg/dL (70-99) H Urine Color Red Urine Clarity Cloudy Urine pH 5.5 Urine Specific [place] 1.015 Urine Protein 100 mg/dL (NEG-TRACE) Urine Glucose (UA) Negative mg/dL (NEG) Urine Ketones (Stick) Trace mg/dL (NEG) Urine Blood Large (NEG) Urine Nitrite Negative (NEG) Urine Bilirubin Negative (NEG) Urine Urobilinogen Dipstick 1.0 mg/dL (0.2 mg/dL) Urine Leukocyte Esterase Moderate (NEG) Urine RBC Tntc /HPF (0-2) Urine WBC 5-10 /HPF (0-4) Urine Squamous Epithelial Cells Occ /LPF Urine Bacteria Few /HPF (0-FEW) Urine Mucus Mod /LPF White Blood Count 6.0 x10^3/uL (4.0-11.0) Red Blood Count 4.55 x10^6/uL (3.50-5.40) Hemoglobin 14.1 g/dL (12.0-15.5) Hematocrit 41.6 % (36.0-47.0) Mean Corpuscular Volume 92 fL (79-100) Mean Corpuscular Hemoglobin 31 pg (25-35) Mean Corpuscular Hemoglobin Concent 34 g/dL (31-37) Red Cell Distribution Width 13.3 % (11.5-14.5) Platelet Count 231 x10^3/uL (140-400) Neutrophils (%) (Auto) 55 % (31-73) Lymphocytes (%) (Auto) 31 % (24-48) Monocytes (%) (Auto) 12 % (0-9) H Eosinophils (%) (Auto) 1 % (0-3) Basophils (%) (Auto) 1 % (0-3) Neutrophils # (Auto) 3.3 x10^3uL (1.8-7.7) Lymphocytes # (Auto) 1.9 x10^3/uL (1.0-4.8) Monocytes # (Auto) 0.7 x10^3/uL (0.0-1.1) Eosinophils # (Auto) 0.0 x10^3/uL (0.0-0.7) Basophils # (Auto) 0.0 x10^3/uL (0.0-0.2) Sodium Level 137 mmol/L (136-145) Potassium Level 3.2 mmol/L (3.5-5.1) L Chloride Level 99 mmol/L (98-107) Carbon Dioxide Level 31 mmol/L (21-32) Anion Gap 7 (6-14) Blood Urea Nitrogen 11 mg/dL (7-20) Creatinine 0.8 mg/dL (0.6-1.0) Estimated GFR (Cockcroft-Gault) 93.4 BUN/Creatinine Ratio 14 (6-20) Glucose Level 107 mg/dL (70-99) H Calcium Level 9.4 mg/dL (8.5-10.1) Total Bilirubin 0.2 mg/dL (0.2-1.0) Aspartate Amino Transferase (AST) 21 U/L (15-37) Alanine Aminotransferase (ALT) 22 U/L (14-59) Alkaline Phosphatase 63 U/L (46-116) Troponin I Quantitative < 0.017 ng/mL (0.000-0.055) Total Protein 8.6 g/dL (6.4-8.2) H Albumin 3.6 g/dL (3.4-5.0) Albumin/Globulin Ratio 0.7 (1.0-1.7) L Laboratory Tests 12/28/16 15:03 Laboratory Tests 12/28/16 15:03 EKG EKG 1451: EKG shows normal sinus rhythm rate of 71 no STEMI[] Radiology/Procedures Radiology/Procedures Chest ray NAD[] Course & Med Decision Making Course & Med Decision Making Pertinent Labs and Imaging studies reviewed. (See chart for details) ED course: Patient was seen and examined emergency room cardiac workup was ordered along with UA Patient was reevaluated when she is asymptomatic and updated patient on UA results and plan to discharge home. Explained to the patient that her cardiac risk profile is low and recommended outpatient cardiac workup. MDM: After reviewing the chart, CC/HPI/PMH, physical exam, [lab results], [ radiological results], I do not believe the patient having acute CO (HEART Score =0), or PE (PERC neg), and low suspicion for acute thoracic aortic dissection. Explained to the patient that she has a UTI and will treat with antibiotics. Patient stable for discharge. Recommended short-term follow-up with PCP for an outpatient cardiac workup. Additional verbal discharge instructions were provided to the patient and that if symptoms get worse or any new symptoms arise that are worrisome to the patient she is to return to the emergency room immediately [] Dragon Disclaimer Dragon Disclaimer This electronic medical record was generated, in whole or in part, using a voice recognition dictation system. Departure Departure Impression: Primary Impression: UTI (urinary tract infection) Additional Impression: Chest pain Disposition: HOME, SELF-CARE Condition: IMPROVED Referrals: JUAN GRIMM JR, MD (PCP) Patient Instructions: Chest Pain (Nonspecific), Urinary Tract Infection, Easy- to-Read Additional Instructions: Please follow-up with your family physician in the next one to 2 days and return if symptoms increase Scripts Cephalexin (KEFLEX) 500 Mg Capsule 1 CAP PO TID for 5 Days, #15 CAP Prov: ADRIANNA BACON DO 12/28/16 Problem Qualifiers ADRIANNA BACON DO Dec 28, 2016 15:25
[2016-12-28 15:42] LABS: BASO % 1 % (0-3); EOS % 1 % (0-3); HEMATOCRIT 41.6 % (36.0-47.0); HEMOGLOBIN 14.1 g/dL (12.0-15.5); LYMPH # 1.9 x10^3/uL (1.0-4.8); LYMPH % 31 % (24-48); MEAN CORPUSCULAR HEMOGLOBIN 31 pg (25-35); MEAN CORPUSCULAR HGB CONC 34 g/dL (31-37); MEAN CORPUSCULAR VOLUME 92 fL (79-100); MONO % 12 % (0-9); NEUT % 55 % (31-73); PLATELET COUNT 231 x10^3/uL (140-400); RED BLOOD COUNT 4.55 x10^6/uL (3.50-5.40); RED CELL DISTRIBUTION WIDTH 13.3 % (11.5-14.5)
[2016-12-28 15:52] LABS: CALCIUM 9.4 mg/dL (8.5-10.1); CREATININE 0.8 mg/dL (0.6-1.0); GFR 93.4; POTASSIUM 3.2 mmol/L (3.5-5.1)
[2016-12-28 15:53] LABS: ALBUMIN 3.6 g/dL (3.4-5.0); ALBUMIN/GLOBULIN RATIO 0.7 (1.0-1.7); TOTAL BILIRUBIN 0.2 mg/dL (0.2-1.0); TOTAL PROTEIN 8.6 g/dL (6.4-8.2)
--- NOTE | 2016-12-28 15:58 | RAD ---
Chest radiograph 2 views 12/28/2016 Clinical indication: Chest pain. Comparison: Chest radiograph 11/21/2016 Findings: Cardiac and mediastinal silhouettes are within normal limits. Unchanged calcified lung nodule in the peripheral right midlung. No pleural effusion, pneumothorax or focal consolidation. Impression: No acute cardiopulmonary abnormality.
[2016-12-28 15:59] LABS: BILIRUBIN,URINE NEGATIVE (NEG); GLUCOSE,URINE NEGATIVE (NEG); NITRITE,URINE NEGATIVE (NEG); PH,URINE 5.5; PROTEIN,URINE 100 mg/dL (NEG-TRACE)
[2016-12-28 16:07] VITALS: BP 135/69
--- NOTE | 2016-12-28 16:09 | EKG ---
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
[2016-12-28 16:31] LABS: BACTERIA,URINE FEW /HPF (0-FEW); RBC,URINE TNTC /HPF (0-2); SQUAMOUS EPITHELIAL CELL,UR OCC /LPF
[2016-12-28] MEDS ORDERED: CEPH-264 PO (17:04)
== END 2016-12-28 17:18 | disposition home or self-care (01) ==
LOC: ER 13:46
DX: R07.89 Other chest pain (principal); N39.0 Urinary tract infection, site not specified; M25.511 Pain in right shoulder; M25.512 Pain in left shoulder; E11.9 Type 2 diabetes mellitus without complications; I10 Essential (primary) hypertension
CPT/HCPCS: 36415; 71020; 80053; 81001; 82962; 84484; 85025; 87086; 93005; 99285-25

== ENCOUNTER 2017-01-16 21:38 | Emergency (ER) | payer MEDICARE ==
[~2017-01-16] VITALS: Ht 180.3 cm; Wt 135.2 kg
[~2017-01-16 21:38] MED LIST changes: +CEPH-264 PO
[2017-01-16 21:57] VITALS: BP 160/104
[2017-01-16] MEDS ORDERED: HYDR-971 PO (22:10)
--- NOTE | 2017-01-16 22:10 | PHYS DOC ---
Past Medical History Past Medical History: Anemia, Diabetes-Type II, Hypertension, Other Additional Past Medical Histor: BORDERLINE DIABETIC Past Surgical History: Tubal ligation Alcohol Use: Occasionally Drug Use: None Adult General Chief Complaint Chief Complaint: MECHANICAL FALL HPI HPI Patient is a 46 year old female drove herself to the emergency department with the complaint of pain after a fall yesterday. The patient was in the bathtub and had her leg up on the bathtub when her other leg slipped and she fell forward out of the tub. She landed on the left side of her body. The shower curtain young fell down and hit her on the head as well. She had no loss of consciousness. Today she complains that her head hurts, also her left neck, left shoulder, left side of her chest and left by and thigh hurteetee. She has been ambulatory. She has had no vomiting. She took ibuprofen 600 mg with a little bit of relief. She has been using ice today. Patient denies other injury. Review of Systems Review of Systems Musculoskeletal: As in history of present illness Neurologic: As in history of present illness, she has a headache and had pain today Allergies Allergies Allergies Coded Allergies Type Severity Reaction Last Updated Verified No Known Drug Allergies 12/16/14 No Physical Exam Physical Exam Constitutional: Obese female, ambulatory, no acute distress. HENT: Normocephalic, atraumatic, bilateral external ears normal, nose normal. [] Eyes: conjunctiva normal, no discharge. [] Neck: No tenderness of the cervical spine. No deformity. Mild tenderness to palpation of the trapezius muscle in the left posterior neck and over the left shoulder. No spasm. Cardiovascular:Heart rate regular rhythm, no murmur [] Lungs & Thorax: Bilateral breath sounds clear to auscultation . Left chest wall is mildly tender to palpation. No point tenderness or crepitance. Skin: Warm, dry, no erythema, no rash. [] Back: No tenderness, no CVA tenderness. [] Extremities: Left shoulder has mild generalized tenderness. No deformity. Patient is able to fully overhead extend her left arm without difficulty. Neurologic: Alert and oriented X 3, normal motor function, normal sensory function, no focal deficits noted. [] Current Patient Data Vital Signs Vital Signs Date Time Temp Pulse Resp B/P (MAP) Pulse Ox O2 Delivery O2 Flow Rate FiO2 01/16/17 21:57 98.1 82 20 160/104 (122) 99 Room Air 98.1 Lab Values Laboratory Tests Test 01/16/17 21:55 POC Urine HCG, Qualitative Hcg negative (Negative) EKG EKG [] Radiology/Procedures Radiology/Procedures [] Course & Med Decision Making Course & Med Decision Making Pertinent Labs and Imaging studies reviewed. (See chart for details) 46 year old female fell yesterday morning and landed on her left side and also had a shower curtain young fall and hit her in the head. She had no loss of consciousness, no nausea or vomiting. Exam today is unremarkable for any area of bony point tenderness that would suggest a need for x-rays. I believe the patient has musculoskeletal strains and contusions and no x-rays would be helpful tonight. I discussed this with the patient. See instructions for plan. [] Dragon Disclaimer Dragon Disclaimer This electronic medical record was generated, in whole or in part, using a voice recognition dictation system. Departure Departure Impression: Primary Impression: Fall in bathtub Additional Impressions: Musculoskeletal pain Head injury, closed, without LOC Disposition: 01 HOME, SELF-CARE Condition: STABLE Referrals: JUAN GRIMM JR, MD (PCP) Patient Instructions: Chest Contusion, Nind-yz-Aigl, Head Injury, Adult, Easy- to-Read Additional Instructions: Continue to use ibuprofen 600 mg every 6-8 hours for pain. Ice 15-20 minutes out of every 1-2 hours to painful areas. Usually injuries from a fall like this hurt worse the next day or 2 but then get better over the course of 4-7 days. If not improving over that time, see your doctor for recheck. I prescribed a small number of opiate pain pills. It is safe to combine these with ibuprofen. Do not take while driving. They will cause sedation and constipation and also may be addicting. Take sparingly for only a short time. Scripts Hydrocodone/Apap 5-325 (NORCO 5-325 TABLET) 1 Each Tablet 1-2 TAB PO Q4-6HRS Y for PAIN, #10 TAB Prov: KHARI HATFIELD MD 01/16/17 Problem Qualifiers KHARI HATFIELD MD Jan 16, 2017 22:10
== END 2017-01-16 22:28 | disposition home or self-care (01) ==
LOC: ER 21:38
DX: S09.90XA Unspecified injury of head, initial encounter (principal); M79.1 Myalgia; M54.2 Cervicalgia; R07.89 Other chest pain; M25.512 Pain in left shoulder; E66.9 Obesity, unspecified; E11.9 Type 2 diabetes mellitus without complications; I10 Essential (primary) hypertension; Z68.41 Body mass index [BMI] 40.0-44.9, adult; W18.2XXA Fall in (into) shower or empty bathtub, initial encounter; Y93.89 Activity, other specified; Y92.89 Other specified places as the place of occurrence of the external cause; Y99.8 Other external cause status
CPT/HCPCS: 81025; 99283

== ENCOUNTER 2017-02-01 20:21 | Inpatient (IN) | payer MEDICARE ==
[~2017-02-01] VITALS: Ht 180.3 cm; Wt 157.4 kg
[~2017-02-01 20:21] MED LIST changes: +HYDR-971 PO
[2017-02-01 20:43] LABS: BASO # 0.1 x10^3/uL (0.0-0.2); BASO % 1 % (0-3); EOS % 1 % (0-3); HEMATOCRIT 41.4 % (36.0-47.0); HEMOGLOBIN 13.9 g/dL (12.0-15.5); LYMPH # 2.9 x10^3/uL (1.0-4.8); LYMPH % 41 % (24-48); MEAN CORPUSCULAR HEMOGLOBIN 31 pg (25-35); MEAN CORPUSCULAR HGB CONC 34 g/dL (31-37); MEAN CORPUSCULAR VOLUME 91 fL (79-100); MONO % 10 % (0-9); NEUT % 47 % (31-73); PLATELET COUNT 241 x10^3/uL (140-400); RED BLOOD COUNT 4.55 x10^6/uL (3.50-5.40); RED CELL DISTRIBUTION WIDTH 12.8 % (11.5-14.5)
[2017-02-01 20:52] LABS: PROTHROMBIN TIME PATIENT 12.9 SEC (11.7-14.0)
[2017-02-01 20:55] LABS: CALCIUM 8.9 mg/dL (8.5-10.1); GFR 72.2; POTASSIUM 3.1 mmol/L (3.5-5.1)
[2017-02-01 21:01] LABS: ALBUMIN 3.9 g/dL (3.4-5.0); ALBUMIN/GLOBULIN RATIO 0.7 (1.0-1.7); MAGNESIUM 1.9 mg/dL (1.8-2.4); TOTAL BILIRUBIN 0.2 mg/dL (0.2-1.0); TOTAL PROTEIN 9.4 g/dL (6.4-8.2)
--- NOTE | 2017-02-01 21:51 | PHYS DOC ---
Past Medical History Past Medical History: Anemia, Diabetes-Type II, Hypertension, Other Additional Past Medical Histor: BORDERLINE DIABETIC Past Surgical History: Tubal ligation Alcohol Use: Occasionally Drug Use: None Adult General Chief Complaint Chief Complaint: CHEST PAIN HPI HPI Patient is a 46 year old female who presents with chest pain. The patient reports acute onset of pain about 2 hours prior to arrival while at rest, watching television. She states pain was left-sided, pressure-like, radiating to her jaw and left arm. Reports associated shortness of breath, denies nausea or diaphoresis. Denies fevers or chills, cough, lower extremity pain or swelling. Denies previous history of similar symptoms. She has history of hypertension, prediabetes. Denies known CAD, no history of PE or DVT. Reports family history of CAD/CABG in multiple family members including both parents & grandparents. She took aspirin 324 mg at home prior to arrival. PCP is at [facility]. Review of Systems Review of Systems Constitutional: Denies fever or chills Eyes: Denies change in visual acuity HENT: Denies nasal congestion or sore throat Respiratory: Denies cough, reports shortness of breath Cardiovascular: Reports chest pain, denies edema GI: Denies abdominal pain, nausea, vomiting, bloody stools or diarrhea : Denies dysuria or hematuria Musculoskeletal: Denies back pain or joint pain Integument: Denies rash or skin lesions Neurologic: Denies headache, focal weakness or sensory changes All other systems were reviewed and found to be within normal limits, except as documented in this note. Current Medications Current Medications Current Medications Medications (Trade) Dose Ordered Sig/[facility] Start Time Stop Time Status Last Admin Dose Admin Acetaminophen (Tylenol) 650 mg PRN Q4HRS PRN 02/01/17 22:45 02/02/17 22:44 Morphine Sulfate 2 mg PRN Q2HR PRN 02/01/17 22:45 02/02/17 22:44 Nitroglycerin (Nitrostat) 0.4 mg PRN Q5MIN PRN 02/01/17 22:45 02/02/17 22:44 Ondansetron HCl (Zofran) 4 mg PRN Q8HRS PRN 02/01/17 22:45 02/02/17 22:44 Potassium Chloride (Klor-Con) 40 meq 1X ONCE 02/01/17 22:00 02/01/17 22:01 DC 02/01/17 22:27 40 MEQ Allergies Allergies Allergies Coded Allergies Type Severity Reaction Last Updated Verified No Known Drug Allergies 12/16/14 No Physical Exam Physical Exam Constitutional: obese, no acute distress, non-toxic appearance. HENT: Normocephalic, atraumatic, bilateral external ears normal, oropharynx moist, nose normal. Eyes: conjunctiva normal, no discharge. Neck: supple, no stridor. Cardiovascular: RRR, no murmurs, no edema. Lungs & Thorax: LCTAB, no wheezing, no respiratory distress. no reproducible tenderness with palpation over anterior chest wall. Abdomen: soft, nontender, nondistended. Skin: Warm, dry, no erythema, no rash. Back: No tenderness. Extremities: No tenderness, no edema. no calf tenderness or swelling, distal pulses present in bilateral lower extremities. Neurologic: Alert and oriented X 3, no focal deficits noted. Psychologic: Affect normal, judgement normal, mood normal. Current Patient Data Vital Signs Vital Signs Date Time Temp Pulse Resp B/P (MAP) Pulse Ox O2 Delivery O2 Flow Rate FiO2 02/01/17 21:37 70 16 130/80 (97) 98 Room Air 02/01/17 20:29 98.1 98.1 Lab Values Laboratory Tests Test 02/01/17 20:30 White Blood Count 7.0 x10^3/uL (4.0-11.0) Red Blood Count 4.55 x10^6/uL (3.50-5.40) Hemoglobin 13.9 g/dL (12.0-15.5) Hematocrit 41.4 % (36.0-47.0) Mean Corpuscular Volume 91 fL (79-100) Mean Corpuscular Hemoglobin 31 pg (25-35) Mean Corpuscular Hemoglobin Concent 34 g/dL (31-37) Red Cell Distribution Width 12.8 % (11.5-14.5) Platelet Count 241 x10^3/uL (140-400) Neutrophils (%) (Auto) 47 % (31-73) Lymphocytes (%) (Auto) 41 % (24-48) Monocytes (%) (Auto) 10 % (0-9) H Eosinophils (%) (Auto) 1 % (0-3) Basophils (%) (Auto) 1 % (0-3) Neutrophils # (Auto) 3.3 x10^3uL (1.8-7.7) Lymphocytes # (Auto) 2.9 x10^3/uL (1.0-4.8) Monocytes # (Auto) 0.7 x10^3/uL (0.0-1.1) Eosinophils # (Auto) 0.1 x10^3/uL (0.0-0.7) Basophils # (Auto) 0.1 x10^3/uL (0.0-0.2) Prothrombin Time 12.9 SEC (11.7-14.0) Prothrombin Time INR 1.0 (0.8-1.1) PTT 29 SEC (24-38) Sodium Level 137 mmol/L (136-145) Potassium Level 3.1 mmol/L (3.5-5.1) L Chloride Level 97 mmol/L (98-107) L Carbon Dioxide Level 34 mmol/L (21-32) H Anion Gap 6 (6-14) Blood Urea Nitrogen 10 mg/dL (7-20) Creatinine 1.0 mg/dL (0.6-1.0) Estimated GFR (Cockcroft-Gault) 72.2 BUN/Creatinine Ratio 10 (6-20) Glucose Level 83 mg/dL (70-99) Calcium Level 8.9 mg/dL (8.5-10.1) Magnesium Level 1.9 mg/dL (1.8-2.4) Total Bilirubin 0.2 mg/dL (0.2-1.0) Aspartate Amino Transferase (AST) 22 U/L (15-37) Alanine Aminotransferase (ALT) 24 U/L (14-59) Alkaline Phosphatase 82 U/L (46-116) Troponin I Quantitative < 0.017 ng/mL (0.000-0.055) JW-Tue-F-Type Natriuretic Peptide 17 pg/mL (0-124) Total Protein 9.4 g/dL (6.4-8.2) H Albumin 3.9 g/dL (3.4-5.0) Albumin/Globulin Ratio 0.7 (1.0-1.7) L Laboratory Tests 02/01/17 20:30 Laboratory Tests 02/01/17 20:30 EKG EKG Interpreted by me: 2026: Normal sinus rhythm rate 84, no acute ST or T wave changes, normal intervals, no ectopy.[] Radiology/Procedures Radiology/Procedures Chest x-ray, portable: Interpreted by me: No cardiomegaly, no infiltrate, no pneumothorax, no acute process.[] Course & Med Decision Making Course & Med Decision Making Pertinent Labs and Imaging studies reviewed. (See chart for details) The patient presents with chest pain. She already took aspirin. Pain was resolving. Obtained labs, EKG, CXR. No significant EKG changes, troponin was negative. Discussed with patient, recommend admission for further cardiac evaluation. JOSE ROBERTO score is 2. The patient agrees with plan of care. Discussed with Dr. Carson who agrees to admit to inpatient status. She is admitted in stable condition. [] Dragon Disclaimer Dragon Disclaimer This electronic medical record was generated, in whole or in part, using a voice recognition dictation system. Departure Departure Impression: Primary Impression: Chest pain Additional Impression: Hypokalemia Disposition: ADMITTED INPATIENT Admitting Physician: Rosa Carson Condition: STABLE Referrals: JUAN GRIMM JR, MD (PCP) Problem Qualifiers Primary Impression: Chest pain Chest pain type: unspecified Qualified Codes: R07.9 - Chest pain, unspecified TIGRE URBINA MD Feb 01, 2017 21:51
[2017-02-01] MEDS ORDERED: POTASSIUM CHLORIDE 20 MEQ TABLET.ER. PO ONE (22:00)
[2017-02-01] MEDS ORDERED: NITROGLYCERIN SUBLINGUAL 0.4 MG BOTTLE OF 25. SL PRN ×2 (22:45→23:45)
[2017-02-01] MEDS ORDERED: ONDANSETRON PF 4 MG/2 ML VIAL. IV PRN ×2 (22:45→23:45)
[2017-02-01] MEDS ORDERED: MORPHINE SULFATE 2 MG/ML DISP.SYRIN. IV PRN ×2 (22:45→23:45)
[2017-02-01] MEDS ORDERED: ACETAMINOPHEN 325 MG TABLET. PO PRN ×2 (22:45→23:45)
[2017-02-01 23:52] VITALS: BP 123/85
--- NOTE | 2017-02-02 00:33 | EKG ---
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
[2017-02-02 03:37] VITALS: BP 135/80
[2017-02-02 04:43] LABS: BASO % 0 % (0-3); EOS % 1 % (0-3); HEMATOCRIT 40.5 % (36.0-47.0); HEMOGLOBIN 13.3 g/dL (12.0-15.5); LYMPH # 2.6 x10^3/uL (1.0-4.8); LYMPH % 41 % (24-48); MEAN CORPUSCULAR HEMOGLOBIN 30 pg (25-35); MEAN CORPUSCULAR HGB CONC 33 g/dL (31-37); MEAN CORPUSCULAR VOLUME 92 fL (79-100); MONO % 11 % (0-9); NEUT % 47 % (31-73); PLATELET COUNT 212 x10^3/uL (140-400); RED BLOOD COUNT 4.39 x10^6/uL (3.50-5.40); RED CELL DISTRIBUTION WIDTH 13.4 % (11.5-14.5); WHITE BLOOD COUNT 6.5 x10^3/uL (4.0-11.0)
[2017-02-02 05:00] LABS: CALCIUM 8.7 mg/dL (8.5-10.1); CREATININE 0.9 mg/dL (0.6-1.0); GFR 81.6; POTASSIUM 3.4 mmol/L (3.5-5.1)
[2017-02-02 06:55] VITALS: BP 97/58
--- NOTE | 2017-02-02 07:23 | EKG ---
[facility] [address] [place] [address] Test Date: 2017-02-02 Test Time: 07:20:56 Pat Name: LIDIA CRUZ Department: Room: 646 1 Gender: F Surgical Resident: AT : 1970 Requested By: TIGRE URBINA Order Number: [id number] Reading MD: Measurements Intervals [place] Rate: 70 P: 36 GA: 188 QRS: 20 QRSD: 78 T: 15 QT: 420 QTc: 457 Interpretive Statements SINUS RHYTHM QRS(T) CONTOUR ABNORMALITY CONSIDER ANTEROSEPTAL MYOCARDIAL DAMAGE POSSIBLY ABNORMAL ECG RI6.01 Unconfirmed report Compared to ECG 12/28/2016 14:51:48 No significant changes
--- NOTE | 2017-02-02 08:10 | RAD ---
Single view of the Chest 02/01/2017 10:36 PM Indication: Chest pain Comparison: Chest radiograph December 28, 2016 Findings: Stable calcified granuloma in the right midlung. There is no focal consolidation or infiltrate identified. There is no effusion or pneumothorax. Heart size is stable. No osseous abnormality is identified. Impression: No evidence of acute cardiopulmonary process.
--- NOTE | 2017-02-02 09:22 | PDOC2 ---
CARDIAC CONSULT DATE OF CONSULT Date of Consult DATE: 02/02/17 TIME: 09:08 REASON FOR CONSULT Reason for Consult: Chest pain REFERRING PHYSICIAN Referring Physician: Valerie SOURCE Source: Chart review, Patient HISTORY OF PRESENT ILLNESS HISTORY OF PRESENT ILLNESS This is a pleasant 46 yo female admitted for complains of chest pain. Reports that she started having this yesterday but only x1. Reports as brief <1 min of sharp left chest discomfort. This was then followed by left shoulder pain which she thought this was related to her arthritis but this then progressed to WALSH and left jaw numbness and pain. Denies any SOA, palpitations and no dizziness. She does do Ellie 3x weekly and tolerating this. No recent heavy lifting, nor falls or any recent injury. She did take ASA which helped with her symptoms. Denies any visual or auditory impairment in relation to her WALSH. She has DM2/HLP and this has been diet controlled. No n/v/abd pain/diarrhea or fever. PAST MEDICAL HISTORY Past Medical History Cardiovascular: HTN, Hyperlipidemia Pulmonary: No pertinent hx CENTRAL NERVOUS SYSTEM: Other (NO pertinent history) GI: GERD Heme/Onc: Anemia NOS Hepatobiliary: Cholelithiasis Psych: No pertinent hx Musculoskeletal: Osteoarthritis, Other (morbid obesity) Rheumatologic: No pertinent hx Infectious disease: No pertinent hx ENT: No pertinent hx Renal/: No pertinent hx Endocrine: Diabetes Dermatology: No pertinent hx PAST SURGICAL HISTORY Past Surgical History: Tubal Ligation FAMILY HISTORY Family History Heart Disease (brother and grandmother) SOCIAL HISTORY Social History Smoke: No ALCOHOL: none Drugs: None Lives: with Family CURRENT MEDICATIONS CURRENT MEDICATIONS Current Medications Medications (Trade) Dose Ordered Sig/Tena Route PRN Reason Start Time Stop Time Status Last Admin Dose Admin Potassium Chloride (Klor-Con) 40 meq 1X ONCE PO 02/01/17 22:00 02/01/17 22:01 DC 02/01/17 22:27 ALLERGIES ALLERGIES: Coded Allergies: No Known Drug Allergies (Unverified , 12/16/14) ROS Review of System 14 point ROS evaluated with pertinent positives noted per HPI PHYSICAL EXAM General: Alert, Oriented X3, Cooperative, No acute distress HEENT: Atraumatic, Mucous membr. moist/pink Lungs: Clear to auscultation, Normal air movement Heart: Regular rate (SR), Normal S1, Normal S2, No murmurs Abdomen: Soft, No tenderness, Other (obese) Extremities: No cyanosis, No edema Skin: No breakdown, No significant lesion Neuro: Normal speech, Sensation intact Psych/Mental Status: Mental status NL, Mood NL MUSCULOSKELETAL: Full range of motion without pain, Other (No discomofort with shoulder ROM) VITALS VITALS Vital Signs Date Time Temp Pulse Resp B/P (MAP) Pulse Ox O2 Delivery O2 Flow Rate FiO2 02/02/17 06:55 97.4 64 19 97/58 (71) 97 Room Air 97.4 LABS Lab: Laboratory Tests Test 02/01/17 20:30 02/02/17 03:50 02/02/17 08:35 White Blood Count 7.0 x10^3/uL (4.0-11.0) 6.5 x10^3/uL (4.0-11.0) Red Blood Count 4.55 x10^6/uL (3.50-5.40) 4.39 x10^6/uL (3.50-5.40) Hemoglobin 13.9 g/dL (12.0-15.5) 13.3 g/dL (12.0-15.5) Hematocrit 41.4 % (36.0-47.0) 40.5 % (36.0-47.0) Mean Corpuscular Volume 91 fL (79-100) 92 fL (79-100) Mean Corpuscular Hemoglobin 31 pg (25-35) 30 pg (25-35) Mean Corpuscular Hemoglobin Concent 34 g/dL (31-37) 33 g/dL (31-37) Red Cell Distribution Width 12.8 % (11.5-14.5) 13.4 % (11.5-14.5) Platelet Count 241 x10^3/uL (140-400) 212 x10^3/uL (140-400) Neutrophils (%) (Auto) 47 % (31-73) 47 % (31-73) Lymphocytes (%) (Auto) 41 % (24-48) 41 % (24-48) Monocytes (%) (Auto) 10 % (0-9) 11 % (0-9) Eosinophils (%) (Auto) 1 % (0-3) 1 % (0-3) Basophils (%) (Auto) 1 % (0-3) 0 % (0-3) Neutrophils # (Auto) 3.3 x10^3uL (1.8-7.7) 3.1 x10^3uL (1.8-7.7) Lymphocytes # (Auto) 2.9 x10^3/uL (1.0-4.8) 2.6 x10^3/uL (1.0-4.8) Monocytes # (Auto) 0.7 x10^3/uL (0.0-1.1) 0.7 x10^3/uL (0.0-1.1) Eosinophils # (Auto) 0.1 x10^3/uL (0.0-0.7) 0.1 x10^3/uL (0.0-0.7) Basophils # (Auto) 0.1 x10^3/uL (0.0-0.2) 0.0 x10^3/uL (0.0-0.2) Prothrombin Time 12.9 SEC (11.7-14.0) Prothromb Time International Ratio 1.0 (0.8-1.1) Activated Partial Thromboplast Time 29 SEC (24-38) Sodium Level 137 mmol/L (136-145) 139 mmol/L (136-145) Potassium Level 3.1 mmol/L (3.5-5.1) 3.4 mmol/L (3.5-5.1) Chloride Level 97 mmol/L (98-107) 99 mmol/L (98-107) Carbon Dioxide Level 34 mmol/L (21-32) 34 mmol/L (21-32) Anion Gap 6 (6-14) 6 (6-14) Blood Urea Nitrogen 10 mg/dL (7-20) 13 mg/dL (7-20) Creatinine 1.0 mg/dL (0.6-1.0) 0.9 mg/dL (0.6-1.0) Estimated GFR (Cockcroft-Gault) 72.2 81.6 BUN/Creatinine Ratio 10 (6-20) Glucose Level 83 mg/dL (70-99) 104 mg/dL (70-99) Calcium Level 8.9 mg/dL (8.5-10.1) 8.7 mg/dL (8.5-10.1) Magnesium Level 1.9 mg/dL (1.8-2.4) Total Bilirubin 0.2 mg/dL (0.2-1.0) Aspartate Amino Transf (AST/SGOT) 22 U/L (15-37) Alanine Aminotransferase (ALT/SGPT) 24 U/L (14-59) Alkaline Phosphatase 82 U/L (46-116) Troponin I Quantitative < 0.017 ng/mL (0.000-0.055) < 0.017 ng/mL (0.000-0.055) < 0.017 ng/mL (0.000-0.055) VV-Jxu-R-Type Natriuretic Peptide 17 pg/mL (0-124) Total Protein 9.4 g/dL (6.4-8.2) Albumin 3.9 g/dL (3.4-5.0) Albumin/Globulin Ratio 0.7 (1.0-1.7) ECHOCARDIOGRAM ECHOCARDIOGRAM <Conclusion> The left ventricle is normal size. Left ventricle systolic function is normal. The Ejection Fraction is 50-55%. There is normal left ventricular wall thickness. There is no significant aortic valvular stenosis. Doppler and Color Flow revealed no significant aortic regurgitation. Doppler and Color Flow revealed trace to mild mitral regurgitation. Doppler and Color Flow revealed mild tricuspid regurgitation. The PA pressure was estimated at 35 mmHg. There is no evidence of significant pericardial effusion. DATE: 06/16/161428 ASSESSMENT/PLAN ASSESSMENT/PLAN 1. Atypical CP: troponin series normal, EKG SR without acute changes. Notable for shoulder and jaw pain as well. 2. Cholelithiasis/multiple pulmonary granulomas: Neg murphys. 3. HTN: controlled 4. DM2/HLP: diet controlled 5. Morbid obesity: BMI 48 6. GERD: controlled Recommendations 1. Significant cardiac risk factors. Treadmill MPI today 2. Continue with home meds Problems: FAINA AVILA APRN Feb 02, 2017 09:22
[2017-02-02 10:35] VITALS: BP 122/83
--- NOTE | 2017-02-02 12:55 | RAD ---
MR#: [id number] Date of Study: 02/02/2017 Ordering Physician: FAINA AVILA, Referring Physician: BHAVESH LUCIANO Tech: ZAFAR Sands, ARRLee (R) (N) APPROVED REPORT Test Type: Pharmacological Stress Nurse/Tech: Adilia Wei R.N. Test Indications: c/p Cardiac History: family hx, htn, obesity Medications: See Electronic Medical Record Medical History: See Electronic Medical Record Resting ECG: SR Resting Heart Rate: 69 bpm Resting Blood Pressure: 143/85mmHg Pretest Chest Pain: No chest pain Nurse/Tech Notes S1S2, lungs CTA Consent: The procedure was explained to the patient in lay terms. Informed consent was witnessed. Cholo eout was entered into [employer] History and Stress Test performed by [facility] Details Pharmacologic stress testing was performed using 0.4mg per 5ml of regadenoson given intravenously ove r 7-10 seconds. Stress Symptoms pt became short of breath pretty quickly after treadmill started. POST EXERCISE Reason for Termination: Reached target heart rate Target HR: Yes Max HR: 170 bpm 98% of Maximum Predicted HR: 174 bpm Exercise duration: 3:51 min:sec, 2 Stage Exercise capacity: 7METs Max Blood Pressure: 194/96mmHg Blood Pressure response to exercise: Normal blood pressure response during stress. Heart Rate response to exercise: wnl Chest Pain: No. Arrhythmia: No. INTERPRETATION Stress EKG Conclusion: The resting EKG shows a sinus rhythm with nonspecific ST changes. The stress EKG shows no significant changes from baseline. No EKG evidence of stress induced ischemia. Imaging Protocol IMAGE PROTOCOL: Stress Tc-99m/rest Tc-99m 2 days Rest: Stress: Viability: Radiopharm.Tc99m Sestamibi Sqsu34dMf Img Date 02/02/2017 Inj-Img Cyof30xwu. Stress Admin Site: IV - Left AntecubitalAdministrator: SERGE Carty STRESS DATA End Diast. Vol.117.0mlAv. Heart Rate91.0bpm End Syst. Vol.31.0mlCO Index BSA0.0L/min Myocardial Hfuo326.0gEject. Ifsnxwys93.0% Stress Rates Pk. Fill Rate3.20EDV/secLVtime Pk. Fill 80.09msec Pk. Empty Rate3.39ESV/secLVtime Pk. Pyqzb945.05msec 1/3 Pk. Fill2.19EDV/sec Stress Scores Regional WT1.00Summed WT2.00 Regional WM0.00Summed WM3.00 LV Perfusion The stress scans show no significant defects. Wall Motion LV systolic function is normal with an ejection fraction of >70%. LV Perf. Quant 17 Seg. SSS0.00 Stress Defect Extent (% LAD)0.00Rest Defect Extent (% LAD)Rev. Defect Extent (% LAD)0.00 Stress Defect Extent (% LCX) 0.00Rest Defect Extent (% LCX)Rev. Defect Extent (% LCX)0.00 Stress Defect Extent (% RCA)0.00Rest Defect Extent (% RCA)Rev. Defect Extent (% RCA)0.00 Stress Defect Extent (% TASHA)0.00Rest Defect Extent (% TASHA)Rev. Defect Extent (% TASHA)0.00 Conclusion 1. Limited exercise tolerance. 2. No chest pain with exertion. 3. No EKG evidence of stress induced ischemia. 4. Nuclear imaging shows no ischemia or infarct. 5. Normal LV systolic function with an ejection fraction of > 70%. 6. Low risk nuclear stress test. Signed by : Cristofer Belcher MD Electronically Approved : 02/02/2017 12:54:47
[2017-02-02] MEDS ORDERED: POTASSIUM CHLORIDE 20 MEQ TABLET.ER. PO ONE (13:30)
--- NOTE | 2017-02-02 13:46 | EKG ---
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
[2017-02-02 14:35] VITALS: BP 136/85
--- NOTE | 2017-02-02 22:24 | SSS ---
ADMIT DATE: 02/02/2017 CHIEF COMPLAINT: Chest pain. HISTORY OF PRESENT ILLNESS: The patient is a pleasant middle-aged healthy female who presented with chest pain. We went ahead and admitted the patient. We did a stress test. She is now going home this afternoon as the stress test is negative. PAST MEDICAL HISTORY: Anemia, diabetes, hypertension and tubal ligation. ALLERGIES: None. FAMILY HISTORY: Diabetes. SOCIAL HISTORY: She does not drink, smoke or take drugs. MEDICATIONS: Reviewed. REVIEW OF SYSTEMS: GENERAL: No history of weight change, weakness or fevers. SKIN: No bruising, hair changes or rashes. EYES: No blurred, double or loss of vision. NOSE AND THROAT: No history of nosebleeds, hoarseness or sore throat. HEART: No history of palpitations, chest pain or shortness of breath on exertion. LUNGS: Denies cough, hemoptysis, wheezing or shortness of breath. GASTROINTESTINAL: Denies changes in appetite, nausea, vomiting, diarrhea or constipation. GENITOURINARY: No history of frequency, urgency, hesitancy or nocturia. NEUROLOGIC: Denies history of numbness, tingling, tremor or weakness. PSYCHIATRIC: No history of panic, anxiety or depression. ENDOCRINE: No history of heat or cold intolerance, polyuria or polydipsia. EXTREMITIES: Denies muscle weakness, joint pain, pain on walking or stiffness. PHYSICAL EXAMINATION: VITAL SIGNS: Temperature afebrile, pulse 92, respirations 18 and blood pressure 142/91. GENERAL: She is alert and cooperative. HEART: Normal S1, S2. LUNGS: Clear. ABDOMEN: Soft. EXTREMITIES: No edema. SKIN: No rashes. ENDOCRINE: No thyromegaly. LYMPHATICS: No cervical nodes. HEMATOPOIETIC: No bruising. ASSESSMENT AND PLAN: Chest pain. As previously stated, we took her for a stress test. It is apparently negative. We will go ahead and discharge. Suspect her chest pain is secondary to gastroesophageal reflux disease. DISPOSITION: Home. ACTIVITY: As tolerated. DIET: Low sodium. MEDICATIONS: Please see the MRAD. TOTAL TIME: 32 minutes. MACHO POSADA DO DR: BRYAN/fiorella JOB#: [id number] / [id number]
== END 2017-02-02 15:30 | disposition home or self-care (01) | DRG 392 ==
LOC: ER 20:21 → 6 SOUTH 21:48 → ER 23:10
PROVIDERS: ADMIT Internal Medicine; ATTEND Internal Medicine
DX: K21.9 Gastro-esophageal reflux disease without esophagitis (principal); E66.01 Morbid (severe) obesity due to excess calories; J84.10 Pulmonary fibrosis, unspecified; Z68.42 Body mass index [BMI] 45.0-49.9, adult; E11.9 Type 2 diabetes mellitus without complications; E78.5 Hyperlipidemia, unspecified; E87.6 Hypokalemia; I10 Essential (primary) hypertension; M19.90 Unspecified osteoarthritis, unspecified site; Z82.49 Family history of ischemic heart disease and other diseases of the circulatory system; Z83.3 Family history of diabetes mellitus; Z98.51 Tubal ligation status; K80.20 Calculus of gallbladder without cholecystitis without obstruction
CPT/HCPCS: 36415; 71010; 78452; 80048; 80053; 80061; 81025; 83735; 83880; 84484; 85025; 85610; 85730; 93005; 93017; 96374; A9500

== ENCOUNTER 2017-02-08 21:48 | Emergency (ER) | payer MEDICARE ==
[2017-02-08 22:12] LABS: URINE HCG POC HCG NEGATIVE (Negative)
[2017-02-08 22:35] LABS: ADD MAN DIFF? NO
[2017-02-08 22:36] LABS: BASO % 1 % (0-3); EOS % 1 % (0-3); HEMATOCRIT 39.2 % (36.0-47.0); HEMOGLOBIN 13.2 g/dL (12.0-15.5); LYMPH # 2.6 x10^3/uL (1.0-4.8); LYMPH % 47 % (24-48); MEAN CORPUSCULAR HEMOGLOBIN 31 pg (25-35); MEAN CORPUSCULAR HGB CONC 34 g/dL (31-37); MEAN CORPUSCULAR VOLUME 91 fL (79-100); MONO % 13 % (0-9); NEUT % 38 % (31-73); PLATELET COUNT 207 x10^3/uL (140-400); RED BLOOD COUNT 4.31 x10^6/uL (3.50-5.40); RED CELL DISTRIBUTION WIDTH 12.7 % (11.5-14.5); WHITE BLOOD COUNT 5.5 x10^3/uL (4.0-11.0)
[2017-02-08] MEDS: IV NORMAL SALINE 1000ML BAG 1,000 ML IV (22:47)
[2017-02-08 22:48] LABS: ANION GAP 6 (6-14); BLOOD UREA NITROGEN 15 mg/dL (7-20); CALCIUM 8.9 mg/dL (8.5-10.1); CARBON DIOXIDE 32 mmol/L (21-32); CHLORIDE 99 mmol/L (98-107); GFR 72.2; GLUCOSE 119 mg/dL (70-99); POTASSIUM 3.4 mmol/L (3.5-5.1); SODIUM 137 mmol/L (136-145)
[2017-02-08 22:57] LABS: TROPONINI < 0.017 ng/mL (0.000-0.055)
[2017-02-09] MEDS ORDERED: IBUPROFEN 800 MG TABLET. PO (01:45)
== END 2017-02-09 01:46 | disposition home or self-care (01) ==
LOC: ER 02-09 01:46
DX: R21 Rash and other nonspecific skin eruption (principal); R20.2 Paresthesia of skin; I10 Essential (primary) hypertension
CPT/HCPCS: 36415; 70450; 80048; 81025; 84484; 85025; 93005; 96360; 96361; 99285-25; J7030

== ENCOUNTER 2017-03-12 20:16 | Emergency (ER) | payer MEDICARE | END 2017-03-12 21:49 | disposition home or self-care (01) | LOC: ER 20:16 | DX: J06.9 Acute upper respiratory infection, unspecified (principal); B35.9 Dermatophytosis, unspecified; I10 Essential (primary) hypertension | CPT/HCPCS: 99283 ==

== ENCOUNTER 2017-03-24 22:11 | Emergency (ER) | payer MEDICARE ==
[2017-03-24] MEDS: KETOROLAC 60 MG/2 ML INJ. IM ×2 (23:11)
== END 2017-03-24 23:09 | disposition home or self-care (01) ==
LOC: ER 23:09
DX: M54.41 Lumbago with sciatica, right side (principal); I10 Essential (primary) hypertension; E66.9 Obesity, unspecified; Z68.41 Body mass index [BMI] 40.0-44.9, adult; Z98.51 Tubal ligation status
CPT/HCPCS: 96372; 99283-25; J1885

== ENCOUNTER 2017-05-01 22:54 | Emergency (ER) | payer MEDICARE | END 2017-05-01 23:00 | disposition home or self-care (01) | LOC: ER 23:00 | DX: B35.4 Tinea corporis (principal); I10 Essential (primary) hypertension | CPT/HCPCS: 99283 ==

== ENCOUNTER 2017-05-23 13:43 | Emergency (ER) | payer MEDICARE ==
[2017-05-23 14:28] LABS: URINE HCG POC HCG NEGATIVE (Negative)
[2017-05-23 14:33] LABS: BILIRUBIN,URINE NEGATIVE (NEG); CLARITY,URINE CLEAR; COLOR,URINE YELLOW; GLUCOSE,URINE NEGATIVE (NEG); NITRITE,URINE NEGATIVE (NEG); PROTEIN,URINE NEGATIVE (NEG-TRACE)
[2017-05-23 14:57] LABS: BACTERIA,URINE 0 /HPF (0-FEW); RBC,URINE TNTC /HPF (0-2); SQUAMOUS EPITHELIAL CELL,UR OCC /LPF
== END 2017-05-23 15:15 | disposition home or self-care (01) ==
LOC: ER 13:43
DX: M54.42 Lumbago with sciatica, left side (principal); M19.90 Unspecified osteoarthritis, unspecified site; I10 Essential (primary) hypertension; Z98.51 Tubal ligation status
CPT/HCPCS: 81001; 81025; 99284

== ENCOUNTER 2017-05-31 19:37 | Emergency (ER) | payer MEDICARE | END 2017-05-31 20:53 | disposition home or self-care (01) | LOC: ER 19:37 | DX: K04.7 Periapical abscess without sinus (principal); I10 Essential (primary) hypertension; M19.90 Unspecified osteoarthritis, unspecified site; Z98.51 Tubal ligation status | CPT/HCPCS: 99283 ==

== ENCOUNTER 2017-06-07 22:48 | Emergency (ER) | payer MEDICARE ==
[2017-06-07 23:45] LABS: ADD MAN DIFF? NO
[2017-06-07 23:47] LABS: URINE HCG POC HCG NEGATIVE (Negative)
[2017-06-07 23:48] LABS: BASO # 0.1 x10^3/uL (0.0-0.2); BASO % 1 % (0-3); EOS # 0.1 x10^3/uL (0.0-0.7); EOS % 1 % (0-3); HEMATOCRIT 39.2 % (36.0-47.0); HEMOGLOBIN 13.7 g/dL (12.0-15.5); LYMPH # 3.2 x10^3/uL (1.0-4.8); LYMPH % 46 % (24-48); MEAN CORPUSCULAR HEMOGLOBIN 32 pg (25-35); MEAN CORPUSCULAR HGB CONC 35 g/dL (31-37); MEAN CORPUSCULAR VOLUME 91 fL (79-100); MONO # 0.8 x10^3/uL (0.0-1.1); MONO % 11 % (0-9); NEUT # 2.9 x10^3uL (1.8-7.7); NEUT % 41 % (31-73); PLATELET COUNT 223 x10^3/uL (140-400); RED BLOOD COUNT 4.31 x10^6/uL (3.50-5.40); WHITE BLOOD COUNT 7.1 x10^3/uL (4.0-11.0)
[2017-06-08] MEDS: IV NORMAL SALINE 1000ML BAG 1,000 ML IV (00:06)
[2017-06-08] MEDS: ASPIRIN CHEWABLE 81 MG TABLET. PO (00:07)
[2017-06-08 00:18] LABS: AGAP ISTAT 16 mmol/L (6-14); BUN ISTAT 13 mg/dL (8-26); CHLORIDE ISTAT 95 mmol/L (98-110); CREATININE ISTAT 0.8 mg/dL (0.5-1.4); GLUCOSE ISTAT 118 mg/dL (70-99); HEMATOCRIT ISTAT 41 % (36-40); HEMOGLOBIN ISTAT 13.9 g/dL (12-15); ION CA ISTAT 1.15 mmol/L (1.13-1.32); POTASSIUM ISTAT 3.3 mmol/L (3.5-5.0); SODIUM ISTAT 138 mmol/L (135-145); TOT CO2 ISTAT 31 mmol/L (23-32)
== END 2017-06-08 01:50 | disposition home or self-care (01) ==
LOC: ER 22:48
DX: R07.89 Other chest pain (principal); I10 Essential (primary) hypertension; Z79.82 Long term (current) use of aspirin; Z98.51 Tubal ligation status
CPT/HCPCS: 36415; 71045; 80047; 81025; 84484; 85025; 93005; 96360; 99285-25; J7030

== ENCOUNTER 2017-06-14 19:46 | Emergency (ER) | payer MEDICARE ==
[2017-06-14 20:09] LABS: URINE HCG POC HCG NEGATIVE (Negative)
[2017-06-14 20:23] LABS: BILIRUBIN,URINE NEGATIVE (NEG); CLARITY,URINE CLEAR; COLOR,URINE YELLOW; GLUCOSE,URINE NEGATIVE (NEG); NITRITE,URINE NEGATIVE (NEG); PH,URINE 5.5; PROTEIN,URINE NEGATIVE (NEG-TRACE)
[2017-06-14 20:28] LABS: BACTERIA,URINE 0 /HPF (0-FEW); RBC,URINE 0 /HPF (0-2); SQUAMOUS EPITHELIAL CELL,UR OCC /LPF; WBC,URINE OCC /HPF (0-4)
[2017-06-14 20:30] LABS: ADD MAN DIFF? NO
[2017-06-14 20:32] LABS: BASO % 1 % (0-3); EOS % 1 % (0-3); HEMATOCRIT 37.7 % (36.0-47.0); HEMOGLOBIN 13.1 g/dL (12.0-15.5); LYMPH # 2.7 x10^3/uL (1.0-4.8); LYMPH % 44 % (24-48); MEAN CORPUSCULAR HEMOGLOBIN 32 pg (25-35); MEAN CORPUSCULAR HGB CONC 35 g/dL (31-37); MEAN CORPUSCULAR VOLUME 91 fL (79-100); MONO # 0.6 x10^3/uL (0.0-1.1); MONO % 10 % (0-9); NEUT # 2.8 x10^3uL (1.8-7.7); NEUT % 45 % (31-73); PLATELET COUNT 195 x10^3/uL (140-400); RED BLOOD COUNT 4.15 x10^6/uL (3.50-5.40); RED CELL DISTRIBUTION WIDTH 13.2 % (11.5-14.5); WHITE BLOOD COUNT 6.2 x10^3/uL (4.0-11.0)
[2017-06-14] MEDS: ONDANSETRON PF 4 MG/2 ML VIAL. IV (20:32)
[2017-06-14] MEDS: IV NORMAL SALINE 1000ML BAG 1,000 ML IV (20:33)
[2017-06-14] MEDS: fentaNYL PF VIAL 100 MCG/2 ML VIAL IV (20:33)
[2017-06-14 20:51] LABS: ALBUMIN 3.3 g/dL (3.4-5.0); ALBUMIN/GLOBULIN RATIO 0.7 (1.0-1.7); ALK PHOS 75 U/L (46-116); ALT (SGPT) 27 U/L (14-59); ANION GAP 4 (6-14); AST (SGOT) 27 U/L (15-37); BLOOD UREA NITROGEN 13 mg/dL (7-20); BUN/CREATININE RATIO 14 (6-20); CALCIUM 8.9 mg/dL (8.5-10.1); CARBON DIOXIDE 33 mmol/L (21-32); CHLORIDE 100 mmol/L (98-107); CREATININE 0.9 mg/dL (0.6-1.0); GFR 81.6; GLUCOSE 124 mg/dL (70-99); LIPASE 124 U/L (73-393); POTASSIUM 3.3 mmol/L (3.5-5.1); SODIUM 137 mmol/L (136-145); TOTAL BILIRUBIN 0.2 mg/dL (0.2-1.0); TOTAL PROTEIN 8.1 g/dL (6.4-8.2)
== END 2017-06-14 22:30 | disposition home or self-care (01) ==
LOC: ER 19:46
DX: K80.70 Calculus of gallbladder and bile duct without cholecystitis without obstruction (principal); K21.9 Gastro-esophageal reflux disease without esophagitis; E11.9 Type 2 diabetes mellitus without complications; I10 Essential (primary) hypertension; M19.90 Unspecified osteoarthritis, unspecified site; Z98.51 Tubal ligation status
CPT/HCPCS: 36415; 76705; 80053; 81001; 81025; 83690; 85025; 93005; 96361; 96374; 96375; 99285-25; J2405; J3010; J7030

== ENCOUNTER 2017-06-15 18:46 | Inpatient (IN) | payer MEDICARE ==
[2017-06-15 19:48] LABS: BILIRUBIN,URINE NEGATIVE (NEG); CLARITY,URINE CLEAR; COLOR,URINE YELLOW; GLUCOSE,URINE NEGATIVE (NEG); NITRITE,URINE NEGATIVE (NEG); PROTEIN,URINE NEGATIVE (NEG-TRACE)
[2017-06-15 19:49] LABS: ADD MAN DIFF? NO
[2017-06-15 19:53] LABS: BASO % 0 % (0-3); EOS % 1 % (0-3); HEMATOCRIT 39.8 % (36.0-47.0); HEMOGLOBIN 13.3 g/dL (12.0-15.5); LYMPH # 2.3 x10^3/uL (1.0-4.8); LYMPH % 40 % (24-48); MEAN CORPUSCULAR HEMOGLOBIN 31 pg (25-35); MEAN CORPUSCULAR HGB CONC 34 g/dL (31-37); MEAN CORPUSCULAR VOLUME 92 fL (79-100); MONO # 0.5 x10^3/uL (0.0-1.1); MONO % 10 % (0-9); NEUT # 2.8 x10^3uL (1.8-7.7); NEUT % 50 % (31-73); PLATELET COUNT 212 x10^3/uL (140-400); RED BLOOD COUNT 4.34 x10^6/uL (3.50-5.40); WHITE BLOOD COUNT 5.7 x10^3/uL (4.0-11.0)
[2017-06-15 20:00] LABS: ANION GAP 9 (6-14); BLOOD UREA NITROGEN 10 mg/dL (7-20); BUN/CREATININE RATIO 10 (6-20); CALCIUM 8.6 mg/dL (8.5-10.1); CARBON DIOXIDE 31 mmol/L (21-32); CHLORIDE 102 mmol/L (98-107); GFR 72.2; GLUCOSE 87 mg/dL (70-99); POTASSIUM 3.8 mmol/L (3.5-5.1); SODIUM 142 mmol/L (136-145)
[2017-06-15 20:03] LABS: BACTERIA,URINE FEW /HPF (0-FEW); HYALINE CASTS, URINE OCCASIONAL /HPF; RBC,URINE 0 /HPF (0-2); SQUAMOUS EPITHELIAL CELL,UR MOD /LPF; WBC,URINE OCC /HPF (0-4)
[2017-06-15 20:06] LABS: ALBUMIN 3.5 g/dL (3.4-5.0); ALBUMIN/GLOBULIN RATIO 0.8 (1.0-1.7); ALK PHOS 72 U/L (46-116); ALT (SGPT) 29 U/L (14-59); AST (SGOT) 26 U/L (15-37); LIPASE 107 U/L (73-393); TOTAL BILIRUBIN 0.2 mg/dL (0.2-1.0); TOTAL PROTEIN 8.1 g/dL (6.4-8.2)
[2017-06-15] MEDS ORDERED: PIP/TAZO PER PHARMACY MC (22:00)
[2017-06-15] MEDS ORDERED: ONDANSETRON PF 4 MG/2 ML VIAL. IV (22:00)
[2017-06-15] MEDS: fentaNYL PF VIAL 100 MCG/2 ML VIAL IV (22:20)
[2017-06-15] MEDS: PIPERACILLIN/TAZOBACTAM 3.375 GM in IV NORMAL SALINE 50ML 50 ML IV (22:20)
[2017-06-15] MEDS: IV DEXTROSE 5%-LACT RINGERS 1,000 ML IV (22:20)
[2017-06-16] MEDS: fentaNYL PF VIAL 100 MCG/2 ML VIAL IV ×5 (03:44→16:38)
[2017-06-16] MEDS: PIPERACILLIN/TAZOBACTAM 3.375 GM in IV NORMAL SALINE 50ML 50 ML IV ×3 (05:35→18:44)
[2017-06-16] MEDS: metFORMIN XR 500 MG TAB.ER.24H PO (08:48)
[2017-06-16] MEDS: LISINOPRIL 20 MG TABLET PO ×2 (09:36→11:15)
[2017-06-16] MEDS: MULTIVITAMIN with MINERAL TABLET. PO (09:36)
[2017-06-16] MEDS: hydroCHLOROthiazide 12.5 MG CAPSULE PO ×2 (09:36→11:14)
[2017-06-16] MEDS ORDERED: ACETAMINOPHEN 650 MG SUPP.RECT. PR (10:00)
[2017-06-16] MEDS ORDERED: ACETAMINOPHEN 325 MG TABLET. PO (11:00)
[2017-06-16] MEDS: ACETAMINOPHEN 325 MG TABLET. PO (11:14)
[2017-06-16] MEDS ORDERED: ONDANSETRON PF 4 MG/2 ML VIAL. IV ×2 (12:30→15:15)
[2017-06-16] MEDS ORDERED: HYDROmorphone 2 MG/ML VIAL IV (12:30)
[2017-06-16] MEDS ORDERED: LIDOCAINE 1% PF 2 ML VIAL. ID (12:30)
[2017-06-16] MEDS ORDERED: fentaNYL PF VIAL 100 MCG/2 ML VIAL IV (12:30)
[2017-06-16] MEDS ORDERED: ROCURONIUM 50 MG/5 ML VIAL. (12:55)
[2017-06-16] MEDS ORDERED: LIDOCAINE 2% PF Vial for OR 5 ML VIAL. (12:55)
[2017-06-16] MEDS ORDERED: PROPOFOL 20 ML IV (12:55)
[2017-06-16] MEDS ORDERED: MIDAZOLAM HCL/PF 2 MG/2 ML VIAL. (12:55)
[2017-06-16] MEDS ORDERED: fentaNYL PF VIAL 100 MCG/2 ML VIAL ×2 (12:56→14:09)
[2017-06-16 13:35] LABS: NEG OBC UR NEG; POS OBC UR POS; U PREG PATIENT NEGATIVE (NEG)
[2017-06-16] MEDS: IV RINGERS,LACTATED 1000ML 1,000 ML IV ×2 (13:35→16:03)
[2017-06-16] MEDS: HEPARIN 1,000 UNIT in IV NORMAL SALINE 1,000 ML for SURG PERIOP IRR (14:05)
[2017-06-16] MEDS: IOHEXOL 300 MG/ML 100ML VIAL. IJ (14:05)
[2017-06-16] MEDS: BUPIVACAINE-EPI 0.25%-1:200000 50 ML VIAL. IJ (14:05)
[2017-06-16] MEDS ORDERED: DESFLURANE 31 TO 60 MINUTES IH (14:11)
[2017-06-16] MEDS ORDERED: DEXAMETHASONE SOD PHOS 20 MG/5 ML VIAL. (14:11)
[2017-06-16] MEDS ORDERED: GLYCOPYRROLATE 1 MG/5 ML VIAL. (14:11)
[2017-06-16] MEDS ORDERED: NEOSTIGMINE METHYLSULFATE 5 MG/5 ML SYRINGE. (14:11)
[2017-06-16] MEDS ORDERED: ONDANSETRON PF 4 MG/2 ML VIAL. (14:11)
[2017-06-16] MEDS ORDERED: FAMOTIDINE 20 MG/2 ML VIAL (14:11)
[2017-06-16] MEDS ORDERED: KETOROLAC 30 MG/ML INJ FOR OR. INJ (14:32)
[2017-06-16] MEDS ORDERED: DESFLURANE 61 TO 120 MINUTES IH (14:37)
[2017-06-16] MEDS: BISACODYL 10 MG SUPP.RECT. PR (14:38)
[2017-06-16] MEDS ORDERED: hydrALAZINE 20 MG/ML VIAL. (14:51)
[2017-06-16] MEDS ORDERED: DEXTROSE 50% 25 GM / 50ML DISP.SYRIN. IV (15:15)
[2017-06-16] MEDS ORDERED: KETOROLAC 30 MG/ML INJ. IV (15:15)
[2017-06-16] MEDS ORDERED: 0.9 % SODIUM CHLORIDE 10 ML DISP.SYRIN. IV (15:15)
[2017-06-16] MEDS: PROCHLORPERAZINE 10 MG/2 ML VIAL. IV (15:52)
[2017-06-16] MEDS: MORPHINE SULFATE 4 MG/ML DISP.SYRIN. IV ×5 (16:00→21:30)
[2017-06-16] MEDS ORDERED: MORPHINE SULFATE 4 MG/ML DISP.SYRIN. IV (16:00)
[2017-06-16] MEDS: ENOXAPARIN 40 MG/0.4 ML SYRINGE. SQ (21:00)
[2017-06-16] MEDS: DOCUSATE SODIUM 100 MG CAPSULE. PO (21:25)
[2017-06-17] MEDS: HYDROcodone/APAP 5/325MG 1 TAB TABLET PO ×4 (00:34→22:10)
[2017-06-17] MEDS: PIPERACILLIN/TAZOBACTAM 3.375 GM in IV NORMAL SALINE 50ML 50 ML IV ×4 (00:35→18:24)
[2017-06-17] MEDS: IV RINGERS,LACTATED 1000ML 1,000 ML IV ×3 (01:14→21:14)
[2017-06-17] MEDS: ACETAMINOPHEN 325 MG TABLET. PO (04:09)
[2017-06-17] MEDS ORDERED: hydroCHLOROthiazide 12.5 MG CAPSULE PO (09:00)
[2017-06-17] MEDS ORDERED: LISINOPRIL 20 MG TABLET PO (09:00)
[2017-06-17] MEDS: DOCUSATE SODIUM 100 MG CAPSULE. PO ×2 (09:35→20:55)
[2017-06-17] MEDS: metFORMIN XR 500 MG TAB.ER.24H PO (09:35)
[2017-06-17] MEDS: MULTIVITAMIN with MINERAL TABLET. PO (09:36)
[2017-06-17] MEDS: LISINOPRIL 20 MG TABLET PO (09:36)
[2017-06-17] MEDS: hydroCHLOROthiazide 12.5 MG CAPSULE PO (09:37)
[2017-06-17] MEDS: ENOXAPARIN 40 MG/0.4 ML SYRINGE. SQ ×2 (09:41→20:56)
[2017-06-17 12:47] LABS: TROPONINI < 0.017 ng/mL (0.000-0.055)
[2017-06-17 13:41] LABS: ANION GAP 12 (6-14); BLOOD UREA NITROGEN 13 mg/dL (7-20); CARBON DIOXIDE 23 mmol/L (21-32); CHLORIDE 100 mmol/L (98-107); GFR 72.2; GLUCOSE 105 mg/dL (70-99); MAGNESIUM 1.8 mg/dL (1.8-2.4); SODIUM 135 mmol/L (136-145)
[2017-06-17 13:43] LABS: POTASSIUM 3.8 mmol/L (3.5-5.1)
[2017-06-17 18:49] LABS: TROPONINI < 0.017 ng/mL (0.000-0.055)
[2017-06-17] MEDS: LACTOBACILLUS RHAMNOSUS GG 1 CAPSULE. PO (20:56)
[2017-06-18] MEDS: PIPERACILLIN/TAZOBACTAM 3.375 GM in IV NORMAL SALINE 50ML 50 ML IV ×3 (00:15→12:45)
[2017-06-18] MEDS: ACETAMINOPHEN 325 MG TABLET. PO ×2 (01:39→09:05)
[2017-06-18 05:59] LABS: TROPONINI < 0.017 ng/mL (0.000-0.055)
[2017-06-18] MEDS: IV RINGERS,LACTATED 1000ML 1,000 ML IV (07:14)
[2017-06-18] MEDS: LISINOPRIL 20 MG TABLET PO (09:00)
[2017-06-18] MEDS: MULTIVITAMIN with MINERAL TABLET. PO (09:00)
[2017-06-18] MEDS: LACTOBACILLUS RHAMNOSUS GG 1 CAPSULE. PO (09:00)
[2017-06-18] MEDS: DOCUSATE SODIUM 100 MG CAPSULE. PO (09:00)
[2017-06-18] MEDS: hydroCHLOROthiazide 12.5 MG CAPSULE PO (09:00)
[2017-06-18] MEDS: metFORMIN XR 500 MG TAB.ER.24H PO (09:02)
[2017-06-18] MEDS: ENOXAPARIN 40 MG/0.4 ML SYRINGE. SQ (09:03)
[2017-06-18] MEDS: HYDROcodone/APAP 5/325MG 1 TAB TABLET PO (12:41)
== END 2017-06-18 15:30 | disposition home or self-care (01) | DRG 418 ==
LOC: ER 18:46 → 4 NORTH 22:00
PROC: 0FT44ZZ Resection of Gallbladder, Percutaneous Endoscopic Approach (ICD-10-PCS; principal; 2017-06-16 13:00)
PROC: BF121ZZ Fluoroscopy of Gallbladder using Low Osmolar Contrast (ICD-10-PCS; 2017-06-16 13:00)
DX: K80.00 Calculus of gallbladder with acute cholecystitis without obstruction (principal); Z68.42 Body mass index [BMI] 45.0-49.9, adult; E66.01 Morbid (severe) obesity due to excess calories; E11.9 Type 2 diabetes mellitus without complications; I10 Essential (primary) hypertension; E78.5 Hyperlipidemia, unspecified; K21.9 Gastro-esophageal reflux disease without esophagitis; K82.8 Other specified diseases of gallbladder; M19.90 Unspecified osteoarthritis, unspecified site; Z98.51 Tubal ligation status
CPT/HCPCS: 36415; 70450; 71045; 74300; 76705; 80048; 80053; 81001; 81025; 83690; 83735; 84484; 85025; 93005; 93306; 96365; 99285; 99285-25; A7015; J0360; J0780; J1100; J1644; J1650; J1885; J2250; J2270; J2405; J2543; J2704; J2710; J3010; J3490; J7030; J7120; Q9967; S0028

== ENCOUNTER 2017-06-19 16:49 | Emergency (ER) | payer MEDICARE ==
[2017-06-19] MEDS: diphenhydrAMINE 50 MG/ML VIAL IVP (17:45)
[2017-06-19 18:15] LABS: ADD MAN DIFF? NO
[2017-06-19] MEDS: IV NORMAL SALINE 1000ML BAG 1,000 ML IV (18:17)
[2017-06-19] MEDS: KETOROLAC 30 MG/ML INJ. IV (18:17)
[2017-06-19 18:18] LABS: BASO % 1 % (0-3); EOS # 0.1 x10^3/uL (0.0-0.7); EOS % 2 % (0-3); HEMOGLOBIN 12.7 g/dL (12.0-15.5); LYMPH # 1.7 x10^3/uL (1.0-4.8); LYMPH % 28 % (24-48); MEAN CORPUSCULAR HEMOGLOBIN 31 pg (25-35); MEAN CORPUSCULAR HGB CONC 34 g/dL (31-37); MEAN CORPUSCULAR VOLUME 91 fL (79-100); MONO # 0.7 x10^3/uL (0.0-1.1); MONO % 11 % (0-9); NEUT # 3.6 x10^3uL (1.8-7.7); NEUT % 58 % (31-73); PLATELET COUNT 220 x10^3/uL (140-400); RED BLOOD COUNT 4.08 x10^6/uL (3.50-5.40); WHITE BLOOD COUNT 6.1 x10^3/uL (4.0-11.0)
[2017-06-19] MEDS: PROCHLORPERAZINE 10 MG/2 ML VIAL. IV (18:18)
[2017-06-19] MEDS: LIDO:MAALOX 1:1 20 ML SINGLE DOSE. SWSW (18:21)
[2017-06-19 18:35] LABS: ANION GAP 7 (6-14); BLOOD UREA NITROGEN 7 mg/dL (7-20); BUN/CREATININE RATIO 9 (6-20); CARBON DIOXIDE 33 mmol/L (21-32); CHLORIDE 101 mmol/L (98-107); CREATININE 0.8 mg/dL (0.6-1.0); GFR 93.4; GLUCOSE 100 mg/dL (70-99); POTASSIUM 3.2 mmol/L (3.5-5.1); SODIUM 141 mmol/L (136-145)
[2017-06-19 18:40] LABS: TROPONINI < 0.017 ng/mL (0.000-0.055)
[2017-06-19 18:42] LABS: ALBUMIN 3.3 g/dL (3.4-5.0); ALBUMIN/GLOBULIN RATIO 0.7 (1.0-1.7); ALK PHOS 71 U/L (46-116); ALT (SGPT) 102 U/L (14-59); AST (SGOT) 64 U/L (15-37); LIPASE 60 U/L (73-393); TOTAL BILIRUBIN 0.5 mg/dL (0.2-1.0); TOTAL PROTEIN 8.2 g/dL (6.4-8.2)
[2017-06-19 18:59] LABS: CKMB MASS < 0.5 ng/mL (0.0-3.6); CREATINE KINASE 111 U/L (26-192)
[2017-06-19] MEDS: POTASSIUM CHLORIDE 20 MEQ TABLET.ER. PO (19:54)
== END 2017-06-19 20:02 | disposition home or self-care (01) ==
LOC: ER 16:49
DX: R51 Headache (principal); R10.13 Epigastric pain; E87.6 Hypokalemia; I10 Essential (primary) hypertension; E11.9 Type 2 diabetes mellitus without complications; K21.9 Gastro-esophageal reflux disease without esophagitis; Z98.51 Tubal ligation status
CPT/HCPCS: 36415; 80053; 82553; 83690; 84484; 85025; 93005; 96374; 96375; 99285-25; J0780; J1885; J7030

== ENCOUNTER 2017-06-23 15:08 | Emergency (ER) | payer MEDICARE ==
[2017-06-23 15:42] LABS: URINE HCG POC HCG NEGATIVE (Negative)
[2017-06-23 16:10] LABS: BILIRUBIN,URINE NEGATIVE (NEG); CLARITY,URINE CLEAR; COLOR,URINE YELLOW; GLUCOSE,URINE NEGATIVE (NEG); NITRITE,URINE NEGATIVE (NEG); PH,URINE 6.5; PROTEIN,URINE NEGATIVE (NEG-TRACE); UROBILINOGEN,URINE 0.2 mg/dL (0.2 mg/dL)
[2017-06-23 16:14] LABS: ADD MAN DIFF? NO
[2017-06-23 16:19] LABS: BASO % 1 % (0-3); EOS # 0.2 x10^3/uL (0.0-0.7); EOS % 3 % (0-3); HEMATOCRIT 39.9 % (36.0-47.0); HEMOGLOBIN 13.5 g/dL (12.0-15.5); LYMPH # 1.9 x10^3/uL (1.0-4.8); LYMPH % 27 % (24-48); MEAN CORPUSCULAR HEMOGLOBIN 31 pg (25-35); MEAN CORPUSCULAR HGB CONC 34 g/dL (31-37); MEAN CORPUSCULAR VOLUME 91 fL (79-100); MONO # 0.8 x10^3/uL (0.0-1.1); MONO % 12 % (0-9); NEUT # 4.1 x10^3uL (1.8-7.7); NEUT % 58 % (31-73); PLATELET COUNT 258 x10^3/uL (140-400); RED BLOOD COUNT 4.38 x10^6/uL (3.50-5.40); RED CELL DISTRIBUTION WIDTH 13.1 % (11.5-14.5)
[2017-06-23 16:20] LABS: BACTERIA,URINE 0 /HPF (0-FEW); RBC,URINE 0 /HPF (0-2); SQUAMOUS EPITHELIAL CELL,UR FEW /LPF; WBC,URINE 0 /HPF (0-4)
[2017-06-23 16:23] LABS: ANION GAP 9 (6-14); BLOOD UREA NITROGEN 9 mg/dL (7-20); BUN/CREATININE RATIO 10 (6-20); CARBON DIOXIDE 30 mmol/L (21-32); CHLORIDE 99 mmol/L (98-107); CREATININE 0.9 mg/dL (0.6-1.0); GFR 81.6; GLUCOSE 116 mg/dL (70-99); POTASSIUM 3.5 mmol/L (3.5-5.1); SODIUM 138 mmol/L (136-145)
[2017-06-23 16:31] LABS: ALBUMIN 3.7 g/dL (3.4-5.0); ALBUMIN/GLOBULIN RATIO 0.7 (1.0-1.7); ALK PHOS 76 U/L (46-116); ALT (SGPT) 57 U/L (14-59); AST (SGOT) 23 U/L (15-37); TOTAL BILIRUBIN 0.3 mg/dL (0.2-1.0); TOTAL PROTEIN 8.9 g/dL (6.4-8.2)
== END 2017-06-23 16:56 | disposition home or self-care (01) ==
LOC: ER 15:08
DX: R51 Headache (principal); K21.9 Gastro-esophageal reflux disease without esophagitis; E11.9 Type 2 diabetes mellitus without complications; I10 Essential (primary) hypertension; Z98.51 Tubal ligation status; Z90.49 Acquired absence of other specified parts of digestive tract
CPT/HCPCS: 36415; 80053; 81001; 81025; 85025; 99284

== ENCOUNTER 2017-07-22 17:27 | Emergency (ER) | payer MEDICARE | END 2017-07-22 18:03 | disposition home or self-care (01) | LOC: ER 17:27 | DX: H66.92 Otitis media, unspecified, left ear (principal); R59.9 Enlarged lymph nodes, unspecified; M19.90 Unspecified osteoarthritis, unspecified site; E11.9 Type 2 diabetes mellitus without complications; K21.9 Gastro-esophageal reflux disease without esophagitis; I10 Essential (primary) hypertension; Z86.2 Personal history of diseases of the blood and blood-forming organs and certain disorders involving the immune mechanism | CPT/HCPCS: 99283 ==

== ENCOUNTER 2017-08-05 12:56 | Emergency (ER) | payer MEDICARE ==
[2017-08-05 13:58] LABS: URINE HCG POC HCG NEGATIVE (Negative)
== END 2017-08-05 16:11 | disposition home or self-care (01) ==
LOC: ER 16:11
DX: R51 Headache (principal); R59.0 Localized enlarged lymph nodes; M19.90 Unspecified osteoarthritis, unspecified site; E11.9 Type 2 diabetes mellitus without complications; K21.9 Gastro-esophageal reflux disease without esophagitis; I10 Essential (primary) hypertension; Z90.49 Acquired absence of other specified parts of digestive tract; Z98.51 Tubal ligation status
CPT/HCPCS: 70450; 81025; 99284

== ENCOUNTER 2017-09-15 17:31 | Emergency (ER) | payer MEDICARE ==
[2017-09-15 18:15] LABS: BILIRUBIN,URINE NEGATIVE (NEG); CLARITY,URINE CLEAR; COLOR,URINE YELLOW; GLUCOSE,URINE NEGATIVE (NEG); NITRITE,URINE NEGATIVE (NEG); PH,URINE 5.5; PROTEIN,URINE NEGATIVE (NEG-TRACE)
[2017-09-15 18:22] LABS: BACTERIA,URINE FEW /HPF (0-FEW); RBC,URINE 0 /HPF (0-2); SQUAMOUS EPITHELIAL CELL,UR MOD /LPF; YEAST,URINE PRESENT /HPF
[2017-09-15 18:25] LABS: ADD MAN DIFF? NO
[2017-09-15 18:26] LABS: BASO % 1 % (0-3); EOS # 0.1 x10^3/uL (0.0-0.7); EOS % 1 % (0-3); HEMATOCRIT 39.2 % (36.0-47.0); HEMOGLOBIN 13.2 g/dL (12.0-15.5); LYMPH # 2.4 x10^3/uL (1.0-4.8); LYMPH % 36 % (24-48); MEAN CORPUSCULAR HEMOGLOBIN 31 pg (25-35); MEAN CORPUSCULAR HGB CONC 34 g/dL (31-37); MEAN CORPUSCULAR VOLUME 91 fL (79-100); MONO # 0.6 x10^3/uL (0.0-1.1); MONO % 9 % (0-9); NEUT # 3.6 x10^3uL (1.8-7.7); NEUT % 53 % (31-73); PLATELET COUNT 242 x10^3/uL (140-400); RED BLOOD COUNT 4.32 x10^6/uL (3.50-5.40); RED CELL DISTRIBUTION WIDTH 13.5 % (11.5-14.5); WHITE BLOOD COUNT 6.7 x10^3/uL (4.0-11.0)
[2017-09-15] MEDS: LIDO:MAALOX 1:1 20 ML SINGLE DOSE. SWSW (18:30)
[2017-09-15 18:36] LABS: ANION GAP 8 (6-14); BLOOD UREA NITROGEN 11 mg/dL (7-20); BUN/CREATININE RATIO 12 (6-20); CALCIUM 9.1 mg/dL (8.5-10.1); CARBON DIOXIDE 31 mmol/L (21-32); CHLORIDE 96 mmol/L (98-107); CREATININE 0.9 mg/dL (0.6-1.0); GFR 81.6; GLUCOSE 111 mg/dL (70-99); POTASSIUM 3.2 mmol/L (3.5-5.1); SODIUM 135 mmol/L (136-145)
[2017-09-15 18:42] LABS: ALBUMIN 3.7 g/dL (3.4-5.0); ALBUMIN/GLOBULIN RATIO 0.7 (1.0-1.7); ALK PHOS 82 U/L (46-116); ALT (SGPT) 23 U/L (14-59); AST (SGOT) 22 U/L (15-37); TOTAL BILIRUBIN 0.3 mg/dL (0.2-1.0); TOTAL PROTEIN 8.7 g/dL (6.4-8.2)
[2017-09-15 18:44] LABS: TROPONINI < 0.017 ng/mL (0.000-0.055)
[2017-09-15 18:50] LABS: CKMB MASS < 0.5 ng/mL (0.0-3.6); CREATINE KINASE 117 U/L (26-192)
== END 2017-09-15 19:30 | disposition home or self-care (01) ==
LOC: ER 17:31
DX: N39.0 Urinary tract infection, site not specified (principal); K21.9 Gastro-esophageal reflux disease without esophagitis; R68.84 Jaw pain; M19.012 Primary osteoarthritis, left shoulder; I10 Essential (primary) hypertension; Z98.51 Tubal ligation status; Z90.49 Acquired absence of other specified parts of digestive tract
CPT/HCPCS: 36415; 80053; 81001; 82553; 84484; 85025; 87086; 93005; 99285-25

== ENCOUNTER 2017-10-30 17:22 | Emergency (ER) | payer MEDICARE ==
[~2017-10-30] VITALS: Ht 180.3 cm; Wt 131.5 kg
[~2017-10-30 17:22] MED LIST changes: +ACET-704 PO; +AMLO5TAB4 PO; +AMOX1TAB61 PO; +AMOX500T PO; +AZIT1PAC PO; +CIPR500T94 PO; +CLOT15CR3 TP; +CYCL10TA2 PO; +DOCU-109 PO; +HYDR-2758 PO; +HYDR12.53 PO; +IBUP-1060 PO; +LISI-130 PO; +METF500T16 PO; -METF500T4 PO; +METF500T9 PO; +NAPR-683 PO; +PRED50TA PO; +PROAIR HFA8.5 GM INH; +SULF1TAB24 PO
--- NOTE | 2017-10-30 19:11 | PHYS DOC ---
Past Medical History Past Medical History: Anemia, Arthritis, Diabetes-Type II, GERD, Hypertension, Other Additional Past Medical Histor: BORDERLINE DIABETIC,BACK PAIN Past Surgical History: Cholecystectomy, Tubal ligation Alcohol Use: Occasionally Drug Use: None Adult General Chief Complaint Chief Complaint: OTHER COMPLAINTS HPI HPI Patient is a 46 year old female presents with left shoulder pain that has been intermittent since June 2017 after cholecystectomy. Patient reports that the pain is sharp and radiates to left arm. She reports that she had a stress test since which she reports was negative. Patient reports the pain today started approximately 7 hours ago and is relieved by ibuprofen. Patient denies any shortness of air, palpitations, syncope, diaphoresis, vomiting. She denies any numbness or tingling. Reports history of hypertension and borderline diabetes which is diet controlled. Review of Systems Review of Systems Constitutional: Denies fever or chills Eyes: Denies change in visual acuity, redness, or eye pain HENT: Denies nasal congestion or sore throat Respiratory: Denies cough or shortness of breath Cardiovascular: Denies chest pain GI: Denies abdominal pain, nausea, vomiting, bloody stools or diarrhea : Denies dysuria or hematuria Musculoskeletal: Denies back pain or neck pain. Complaining of left shoulder pain for 4 months. Integument: Denies rash or skin lesions Neurologic: Denies headache, focal weakness or sensory changes Endocrine: Denies polyuria or polydipsia All other systems were reviewed and found to be within normal limits, except as documented in this note. Allergies Allergies Allergies Coded Allergies Type Severity Reaction Last Updated Verified No Known Drug Allergies 12/16/14 No Physical Exam Physical Exam Constitutional: Well developed, well nourished, no acute distress, non-toxic appearance. HENT: Normocephalic, atraumatic, bilateral external ears normal, oropharynx moist, no oral exudates, nose normal. Eyes: PERRLA, EOMI, conjunctiva normal, no discharge. [] Neck: Normal range of motion, no midline tenderness, supple, no stridor. Cardiovascular:Heart rate regular rhythm, no murmur Lungs & Thorax: Bilateral breath sounds clear to auscultation Abdomen: Bowel sounds normal, soft, no tenderness, no masses, no pulsatile masses. [] Skin: Warm, dry, no erythema, no rash. Back: No midline tenderness, no CVA tenderness. Extremities: No tenderness, no cyanosis, no clubbing, ROM intact, no edema. Neurologic: Alert and oriented X 3, normal motor function, normal sensory function, no focal deficits noted. Psychologic: Affect normal, judgement normal, mood normal. [] Current Patient Data Vital Signs Vital Signs Date Time Temp Pulse Resp B/P (MAP) Pulse Ox O2 Delivery O2 Flow Rate FiO2 10/30/17 20:47 20 121/58 (79) 98 Room Air 10/30/17 18:51 97.9 80 97.9 Lab Values Laboratory Tests Test 10/30/17 20:35 White Blood Count 6.9 x10^3/uL (4.0-11.0) Red Blood Count 4.10 x10^6/uL (3.50-5.40) Hemoglobin 12.9 g/dL (12.0-15.5) Hematocrit 37.5 % (36.0-47.0) Mean Corpuscular Volume 92 fL (79-100) Mean Corpuscular Hemoglobin 32 pg (25-35) Mean Corpuscular Hemoglobin Concent 34 g/dL (31-37) Red Cell Distribution Width 13.7 % (11.5-14.5) Platelet Count 236 x10^3/uL (140-400) Neutrophils (%) (Auto) 59 % (31-73) Lymphocytes (%) (Auto) 31 % (24-48) Monocytes (%) (Auto) 9 % (0-9) Eosinophils (%) (Auto) 1 % (0-3) Basophils (%) (Auto) 1 % (0-3) Neutrophils # (Auto) 4.0 x10^3uL (1.8-7.7) Lymphocytes # (Auto) 2.1 x10^3/uL (1.0-4.8) Monocytes # (Auto) 0.6 x10^3/uL (0.0-1.1) Eosinophils # (Auto) 0.1 x10^3/uL (0.0-0.7) Basophils # (Auto) 0.0 x10^3/uL (0.0-0.2) D-Dimer (Stephani) 0.35 ug/mlFEU (0.00-0.50) Sodium Level 139 mmol/L (136-145) Potassium Level 3.4 mmol/L (3.5-5.1) L Chloride Level 100 mmol/L (98-107) Carbon Dioxide Level 34 mmol/L (21-32) H Anion Gap 5 (6-14) L Blood Urea Nitrogen 7 mg/dL (7-20) Creatinine 0.8 mg/dL (0.6-1.0) Estimated GFR (Cockcroft-Gault) 93.4 BUN/Creatinine Ratio 9 (6-20) Glucose Level 101 mg/dL (70-99) H Calcium Level 9.0 mg/dL (8.5-10.1) Total Bilirubin 0.2 mg/dL (0.2-1.0) Aspartate Amino Transferase (AST) 20 U/L (15-37) Alanine Aminotransferase (ALT) 22 U/L (14-59) Alkaline Phosphatase 77 U/L (46-116) Creatine Kinase 131 U/L (26-192) Troponin I Quantitative < 0.017 ng/mL (0.000-0.055) Total Protein 8.1 g/dL (6.4-8.2) Albumin 3.8 g/dL (3.4-5.0) Albumin/Globulin Ratio 0.9 (1.0-1.7) L Laboratory Tests 10/30/17 20:35 Laboratory Tests 10/30/17 20:35 Radiology/Procedures Radiology/Procedures [] Impressions: Left shoulder pain Course & Med Decision Making Course & Med Decision Making Pertinent Labs and Imaging studies reviewed. (See chart for details) Chest x-ray, EKG, labs reviewed and unremarkable. Patient's vital signs remained stable throughout stay. She instructed to follow up with orthopedics in 1-2 days. Patient is agreeable with plan and she feels that this is likely orthopedic as well. Dragon Disclaimer Dragon Disclaimer This electronic medical record was generated, in whole or in part, using a voice recognition dictation system. Departure Departure Impression: Primary Impression: Chronic left shoulder pain Disposition: 01 HOME, SELF-CARE Referrals: ALBERT TOLEDO MD (PCP) ORIN GOMEZ MD Patient Instructions: Shoulder Pain, Reyv-wz-Ulie Scripts Diclofenac Sodium (VOLTAREN-XR) 100 Mg Tab.er.24h 100 MG PO DAILY, #10 TAB.SR Prov: BRINDA FAY MANAGER ED 10/30/17 Lidocaine (Lidocaine) 1 Each Adh..patch 1 EACH TP DAILY PRN for PAIN, #3 PATCH 0 Refills Prov: BRINDA FAY APRN 10/30/17 BRINDA FAY APRN Oct 30, 2017 19:11
[2017-10-30 20:45] LABS: BASO % 1 % (0-3); EOS # 0.1 x10^3/uL (0.0-0.7); EOS % 1 % (0-3); HEMATOCRIT 37.5 % (36.0-47.0); HEMOGLOBIN 12.9 g/dL (12.0-15.5); LYMPH # 2.1 x10^3/uL (1.0-4.8); LYMPH % 31 % (24-48); MEAN CORPUSCULAR HEMOGLOBIN 32 pg (25-35); MEAN CORPUSCULAR HGB CONC 34 g/dL (31-37); MEAN CORPUSCULAR VOLUME 92 fL (79-100); MONO # 0.6 x10^3/uL (0.0-1.1); MONO % 9 % (0-9); NEUT % 59 % (31-73); PLATELET COUNT 236 x10^3/uL (140-400); RED CELL DISTRIBUTION WIDTH 13.7 % (11.5-14.5); WHITE BLOOD COUNT 6.9 x10^3/uL (4.0-11.0)
[2017-10-30 20:47] VITALS: BP 121/58
[2017-10-30 20:53] LABS: CREATININE 0.8 mg/dL (0.6-1.0); GFR 93.4; POTASSIUM 3.4 mmol/L (3.5-5.1)
[2017-10-30 21:00] LABS: ALBUMIN 3.8 g/dL (3.4-5.0); ALBUMIN/GLOBULIN RATIO 0.9 (1.0-1.7); TOTAL BILIRUBIN 0.2 mg/dL (0.2-1.0); TOTAL PROTEIN 8.1 g/dL (6.4-8.2)
[2017-10-30] MEDS ORDERED: LIDO700A39 TP (21:59)
[2017-10-30] MEDS ORDERED: DICL100T PO (21:59)
--- NOTE | 2017-10-30 22:56 | EKG ---
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
--- NOTE | 2017-10-31 08:43 | RAD ---
CHEST PA LATERAL Clinical indications: LEFT SHOULDER PAIN ON AND OFF SINCE GALLBLADDER SURGERY 7 MONTHS AGO. COMPARISON: June 17, 2017. Findings: Again seen is a calcified granuloma of the lateral right midlung zone. No acute lung infiltrate or pleural effusion or pulmonary edema or lung mass or pneumothorax is seen. The heart size, pulmonary vasculature, mediastinum and both emerson are unremarkable. Impression: No acute radiographic abnormality is seen. Electronically signed by: Breezy Law MD (10/31/2017 8:40 AM) [facility]
--- NOTE | 2017-10-31 13:55 | EKG ---
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
== END 2017-10-30 22:21 | disposition home or self-care (01) ==
LOC: ER 17:22
DX: G89.29 Other chronic pain (principal); M25.512 Pain in left shoulder; I10 Essential (primary) hypertension; E11.9 Type 2 diabetes mellitus without complications; K21.9 Gastro-esophageal reflux disease without esophagitis; M19.90 Unspecified osteoarthritis, unspecified site; Z86.2 Personal history of diseases of the blood and blood-forming organs and certain disorders involving the immune mechanism; Z90.49 Acquired absence of other specified parts of digestive tract; Z98.51 Tubal ligation status
CPT/HCPCS: 36415; 71046; 80053; 82550; 84484; 85025; 85379; 93005; 99285-25

== ENCOUNTER 2017-11-26 03:06 | Emergency (ER) | payer MEDICARE ==
[~2017-11-26] VITALS: Ht 180.3 cm; Wt 154.2 kg
[~2017-11-26 03:06] MED LIST changes: +DICL100T PO; +LIDO700A39 TP
--- NOTE | 2017-11-26 03:41 | PHYS DOC ---
Past Medical History Past Medical History: Anemia, Arthritis, Diabetes-Type II, GERD, Hypertension, Other Additional Past Medical Histor: BORDERLINE DIABETIC,BACK PAIN Past Surgical History: Cholecystectomy, Tubal ligation Alcohol Use: Occasionally Drug Use: None Adult General Chief Complaint Chief Complaint: CHEST PAIN HPI HPI Patient is a 47 year old female who presents with intermittent chest pain that comes and goes for seconds at a time for the past 24 hours. Patient states at first she thought this was her GERD pain but decided to come in to have it further evaluated. Patient complains of left sided substernal nonradiating chest pain that only lasts for seconds at a time. Patient states doing this over 24 hours. Patient currently has no acute complaints and does not have chest pain. Patient denies shortness of breath or abdominal pain. Patient is a diabetic on metformin and does have a family history of significant both parents and both brothers in their fifth and sixth decades of life having open heart surgery. Patient denies being a smoker and states she is compliant with her medication. The patient has been admitted 3 times since January 2016 for chest pain all of which been negative. She did have a CT of her chest to rule out PE which was negative for PE and did have a nodule that was in the upper lobe with normal. Was recommended that she have at least a [address] scan which she states she did have at [facility] in June 2017 which to her recollection was unremarkable. Per our records patient's most recent echo was from her June 2016 admission with the following results. ECHOCARDIOGRAM ECHOCARDIOGRAM <Conclusion> The left ventricle is normal size. Left ventricle systolic function is normal. The Ejection Fraction is 50-55%. There is normal left ventricular wall thickness. There is no significant aortic valvular stenosis. Doppler and Color Flow revealed no significant aortic regurgitation. Doppler and Color Flow revealed trace to mild mitral regurgitation. Doppler and Color Flow revealed mild tricuspid regurgitation. The PA pressure was estimated at 35 mmHg. There is no evidence of significant pericardial effusion. DATE: 06/16/[address] Parker ASSESSMENT/PLAN ASSESSMENT/PLAN 1. Atypical CP: troponin series normal, EKG SR without acute changes. Notable for shoulder and jaw pain as well. 2. Cholelithiasis/multiple pulmonary granulomas: Neg murphys. 3. HTN: controlled 4. DM2/HLP: diet controlled 5. Morbid obesity: BMI 48 6. GERD: controlled Recommendations 1. Significant cardiac risk factors. Treadmill MPI today 2. Continue with home meds Review of Systems Review of Systems Constitutional: Denies fever or chills [] Eyes: Denies change in visual acuity, redness, or eye pain [] HENT: Denies nasal congestion or sore throat [] Respiratory: Denies cough or shortness of breath [] Cardiovascular: No additional information not addressed in HPI [] GI: Denies abdominal pain, nausea, vomiting, bloody stools or diarrhea [] : Denies dysuria or hematuria [] Musculoskeletal: Denies back pain or joint pain [] Integument: Denies rash or skin lesions [] Neurologic: Denies headache, focal weakness or sensory changes [] Endocrine: Denies polyuria or polydipsia [] All other systems were reviewed and found to be within normal limits, except as documented in this note. Allergies Allergies Allergies Coded Allergies Type Severity Reaction Last Updated Verified No Known Drug Allergies 12/16/14 No Physical Exam Physical Exam Constitutional: Well developed, well nourished, no acute distress, non-toxic appearance. [] HENT: Normocephalic, atraumatic, bilateral external ears normal, oropharynx moist, no oral exudates, nose normal. [] Eyes: PERRLA, EOMI, conjunctiva normal, no discharge. [] Neck: Normal range of motion, no tenderness, supple, no stridor. [] Cardiovascular:Heart rate regular rhythm, no murmur [] Lungs & Thorax: Bilateral breath sounds clear to auscultation [] Abdomen: Bowel sounds normal, soft, no tenderness, no masses, no pulsatile masses. [] Skin: Warm, dry, no erythema, no rash. [] Back: No tenderness, no CVA tenderness. [] Extremities: No tenderness, no cyanosis, no clubbing, ROM intact, no edema. [] Neurologic: Alert and oriented X 3, normal motor function, normal sensory function, no focal deficits noted. [] Psychologic: Affect normal, judgement normal, mood normal. [] Current Patient Data Vital Signs Vital Signs Date Time Temp Pulse Resp B/P (MAP) Pulse Ox O2 Delivery O2 Flow Rate FiO2 11/26/17 03:09 97.6 91 20 158/78 (104) 99 Room Air 97.6 Lab Values Laboratory Tests Test 11/26/17 03:21 11/26/17 04:42 11/26/17 04:57 White Blood Count 7.9 x10^3/uL (4.0-11.0) Red Blood Count 4.31 x10^6/uL (3.50-5.40) Hemoglobin 13.5 g/dL (12.0-15.5) Hematocrit 39.4 % (36.0-47.0) Mean Corpuscular Volume 91 fL (79-100) Mean Corpuscular Hemoglobin 31 pg (25-35) Mean Corpuscular Hemoglobin Concent 34 g/dL (31-37) Red Cell Distribution Width 13.2 % (11.5-14.5) Platelet Count 270 x10^3/uL (140-400) Neutrophils (%) (Auto) 44 % (31-73) Lymphocytes (%) (Auto) 43 % (24-48) Monocytes (%) (Auto) 11 % (0-9) H Eosinophils (%) (Auto) 2 % (0-3) Basophils (%) (Auto) 1 % (0-3) Neutrophils # (Auto) 3.4 x10^3uL (1.8-7.7) Lymphocytes # (Auto) 3.4 x10^3/uL (1.0-4.8) Monocytes # (Auto) 0.9 x10^3/uL (0.0-1.1) Eosinophils # (Auto) 0.1 x10^3/uL (0.0-0.7) Basophils # (Auto) 0.1 x10^3/uL (0.0-0.2) Sodium Level 138 mmol/L (136-145) Potassium Level 3.6 mmol/L (3.5-5.1) Chloride Level 99 mmol/L (98-107) Carbon Dioxide Level 32 mmol/L (21-32) Anion Gap 7 (6-14) Blood Urea Nitrogen 12 mg/dL (7-20) Creatinine 0.8 mg/dL (0.6-1.0) Estimated GFR (Cockcroft-Gault) 93.0 BUN/Creatinine Ratio 15 (6-20) Glucose Level 90 mg/dL (70-99) Calcium Level 9.7 mg/dL (8.5-10.1) Total Bilirubin 0.2 mg/dL (0.2-1.0) Aspartate Amino Transferase (AST) 22 U/L (15-37) Alanine Aminotransferase (ALT) 29 U/L (14-59) Alkaline Phosphatase 75 U/L (46-116) Troponin I Quantitative < 0.017 ng/mL (0.000-0.055) Total Protein 8.4 g/dL (6.4-8.2) H Albumin 3.7 g/dL (3.4-5.0) Albumin/Globulin Ratio 0.8 (1.0-1.7) L Amylase Level 77 U/L (25-115) Lipase 142 U/L (73-393) Ethyl Alcohol Level < 10 mg/dL (0-10) Urine Collection Type Unknown Urine Color Yellow Urine Clarity Clear Urine pH 6.0 Urine Specific [place] 1.020 Urine Protein Negative mg/dL (NEG-TRACE) Urine Glucose (UA) Negative mg/dL (NEG) Urine Ketones (Stick) Negative mg/dL (NEG) Urine Blood Negative (NEG) Urine Nitrite Negative (NEG) Urine Bilirubin Negative (NEG) Urine Urobilinogen Dipstick 1.0 mg/dL (0.2 mg/dL) Urine Leukocyte Esterase Moderate (NEG) Urine RBC Occ /HPF (0-2) Urine WBC 1-4 /HPF (0-4) Urine Squamous Epithelial Cells Mod /LPF Urine Bacteria Few /HPF (0-FEW) Urine Mucus Mod /LPF Urine Opiates Screen Neg (NEG) Urine Methadone Screen Neg (NEG) Urine Barbiturates Neg (NEG) Urine Phencyclidine Screen Neg (NEG) Urine Amphetamine/Methamphetamine Neg (NEG) Urine Benzodiazepines Screen Neg (NEG) Urine Cocaine Screen Neg (NEG) Urine Cannabinoids Screen Neg (NEG) Urine Ethyl Alcohol Neg (NEG) POC Urine HCG, Qualitative Hcg negative (Negative) Laboratory Tests 11/26/17 03:21 Laboratory Tests 11/26/17 03:21 EKG EKG Normal sinus rhythm at a rate of 91[] Radiology/Procedures Radiology/Procedures Portable chest x-rayno acute disease with a granuloma in the right middle lobe[ ] Course & Med Decision Making Course & Med Decision Making Pertinent Labs and Imaging studies reviewed. (See chart for details) Patient with a heart score of 3. Patient states that she currently is asymptomatic and feels comfortable being discharged with outpatient follow-up. [] Dragon Disclaimer Dragon Disclaimer This electronic medical record was generated, in whole or in part, using a voice recognition dictation system. Departure Departure Impression: Primary Impression: Non-cardiac chest pain Disposition: HOME, SELF-CARE Condition: STABLE Referrals: ALBERT TOLEDO MD (PCP) Patient Instructions: Chest Pain (Nonspecific), [id number] LEIDY MACKEY MD Nov 26, 2017 03:41
[2017-11-26 03:53] LABS: BASO # 0.1 x10^3/uL (0.0-0.2); BASO % 1 % (0-3); EOS # 0.1 x10^3/uL (0.0-0.7); EOS % 2 % (0-3); HEMATOCRIT 39.4 % (36.0-47.0); HEMOGLOBIN 13.5 g/dL (12.0-15.5); LYMPH # 3.4 x10^3/uL (1.0-4.8); LYMPH % 43 % (24-48); MEAN CORPUSCULAR HEMOGLOBIN 31 pg (25-35); MEAN CORPUSCULAR HGB CONC 34 g/dL (31-37); MEAN CORPUSCULAR VOLUME 91 fL (79-100); MONO # 0.9 x10^3/uL (0.0-1.1); MONO % 11 % (0-9); NEUT # 3.4 x10^3uL (1.8-7.7); NEUT % 44 % (31-73); PLATELET COUNT 270 x10^3/uL (140-400); RED BLOOD COUNT 4.31 x10^6/uL (3.50-5.40); RED CELL DISTRIBUTION WIDTH 13.2 % (11.5-14.5); WHITE BLOOD COUNT 7.9 x10^3/uL (4.0-11.0)
[2017-11-26 04:06] LABS: ALBUMIN 3.7 g/dL (3.4-5.0); ALBUMIN/GLOBULIN RATIO 0.8 (1.0-1.7); CALCIUM 9.7 mg/dL (8.5-10.1); CREATININE 0.8 mg/dL (0.6-1.0); POTASSIUM 3.6 mmol/L (3.5-5.1); TOTAL BILIRUBIN 0.2 mg/dL (0.2-1.0); TOTAL PROTEIN 8.4 g/dL (6.4-8.2)
[2017-11-26 05:08] LABS: BILIRUBIN,URINE NEGATIVE (NEG); CLARITY,URINE CLEAR; COLOR,URINE YELLOW; NITRITE,URINE NEGATIVE (NEG); PROTEIN,URINE NEGATIVE (NEG-TRACE)
[2017-11-26 05:16] LABS: BARBITURATES NEG (NEG); BENZODIAZEPINES NEG (NEG); CANNABINOIDS NEG (NEG); COCAINE NEG (NEG); METHADONE NEG (NEG); OPIATES NEG (NEG); PHENCYCLIDINE NEG (NEG)
[2017-11-26 05:17] LABS: BACTERIA,URINE FEW /HPF (0-FEW); RBC,URINE OCC /HPF (0-2); SQUAMOUS EPITHELIAL CELL,UR MOD /LPF
[2017-11-26 05:21] LABS: AMPHETAMINE/METHAMPHETAMINE NEG (NEG)
[2017-11-26 05:41] VITALS: BP 124/66
--- NOTE | 2017-11-26 06:03 | RAD ---
Chest AP portable at 0351: Reason for examination: Chest pain and cough. Comparison is made to previous study dated 10/30/2017. The heart size is normal. Mediastinum is unremarkable. Lung santiago continue to show the opacity in the mid right lung field probably representing a calcified granuloma which is unchanged. There are no new infiltrates or pleural effusions seen. No acute bony abnormalities are seen. Impression: No acute cardiopulmonary disease. Electronically signed by: Melody Lane MD (11/26/2017 6:00 AM) [facility]
--- NOTE | 2017-11-26 07:16 | EKG ---
[facility] [address] [place] [address] Test Date: 2017-11-26 Test Time: 03:10:15 Pat Name: LIDIA CRUZ Department: Room: Gender: F Emergency Technician: : 1970 Requested By: LEIDY MACKEY Order Number: [id number] Reading MD: Denys Berumen MD Measurements Intervals [place] Rate: 91 P: 51 ME: 168 QRS: 28 QRSD: 80 T: 26 QT: 356 QTc: 440 Interpretive Statements SINUS RHYTHM Electronically Signed On 11-28-2017 9:00:08 CDT by Denys Berumen MD
== END 2017-11-26 05:52 | disposition home or self-care (01) ==
LOC: ER 03:06
DX: R07.89 Other chest pain (principal); K21.9 Gastro-esophageal reflux disease without esophagitis; E11.9 Type 2 diabetes mellitus without complications; I10 Essential (primary) hypertension; Z90.49 Acquired absence of other specified parts of digestive tract; Z98.51 Tubal ligation status
CPT/HCPCS: 36415; 71045; 80053; 80307; 81001; 81025; 82150; 83690; 84484; 85025; 93005; 99285; G0480; G0479

== ENCOUNTER 2017-12-30 22:33 | Emergency (ER) | payer MEDICARE ==
[~2017-12-30] VITALS: Ht 180.3 cm; Wt 154.2 kg
[2017-12-30 22:33] VITALS: BP 166/77
[~2017-12-30 22:33] MED LIST changes: +HYDR-3164 PO; -HYDR-971 PO
[2017-12-30] MEDS ORDERED: TRIA15CR TP (22:58)
[2017-12-30] MEDS ORDERED: SULF1TAB24 PO (22:58)
--- NOTE | 2017-12-30 23:00 | PHYS DOC ---
Past Medical History Past Medical History: Anemia, Arthritis, Diabetes-Type II, GERD, Hypertension, Other Additional Past Medical Histor: BORDERLINE DIABETIC,BACK PAIN Past Surgical History: Cholecystectomy, Tubal ligation Alcohol Use: Occasionally Drug Use: None Adult General Chief Complaint Chief Complaint: ABSCESS HPI HPI Patient is a 47 year old female who presents with an itchy, erythematous area to her right forearm that she noticed today. The patient states that she woke up with this. She does have a history of abscesses and cellulitis. She denies fever, nausea or vomiting. Review of Systems Review of Systems Constitutional: Denies fever or chills [] Respiratory: Denies cough or shortness of breath [] Cardiovascular: No additional information not addressed in HPI [] Musculoskeletal: Denies back pain or joint pain [] Integument: See history of present illness Neurologic: Denies headache, focal weakness or sensory changes [] Endocrine: Denies polyuria or polydipsia [] All other systems were reviewed and found to be within normal limits, except as documented in this note. Allergies Allergies Allergies Coded Allergies Type Severity Reaction Last Updated Verified No Known Drug Allergies 12/16/14 No Physical Exam Physical Exam Constitutional: Well developed, well nourished, no acute distress, non-toxic appearance. [] Cardiovascular:Heart rate regular rhythm, no murmur [] Lungs & Thorax: Bilateral breath sounds clear to auscultation [] Abdomen: Bowel sounds normal, soft, no tenderness, no masses, no pulsatile masses. [] Skin: 2.5 cm in diameter area of erythema that is soft, no induration noted Back: No tenderness, no CVA tenderness. [] Extremities: No tenderness, no cyanosis, no clubbing, ROM intact, no edema. [] Neurologic: Alert and oriented X 3, normal motor function, normal sensory function, no focal deficits noted. [] Psychologic: Affect normal, judgement normal, mood normal. [] EKG EKG [] Radiology/Procedures Radiology/Procedures [] Course & Med Decision Making Course & Med Decision Making Pertinent Labs and Imaging studies reviewed. (See chart for details) []The patient is being discharged with steroid cream to control itching. She is to start taking the antibiotic only if this lesion turns into an abscess. She is in agreement with this plan. Dragon Disclaimer Dragon Disclaimer This electronic medical record was generated, in whole or in part, using a voice recognition dictation system. Departure Departure Impression: Primary Impression: Insect bite Disposition: 01 HOME, SELF-CARE Condition: STABLE Referrals: ALBERT TOLEDO MD (PCP) Patient Instructions: Abscess, Insect Bite Additional Instructions: Use the topical cream to control itching. If the area worsens and develops into an abscess start taking the oral antibiotic. Follow-up with your primary care provider if not improving in one week. Return to the emergency department. Scripts Sulfamethoxazole/Trimethoprim (BACTRIM DS TABLET) 1 Each Tablet 1 TAB PO BID for infection, #20 TAB Prov: TESS SHEPPARD APRN 12/30/17 Triamcinolone Acetonide (TRIAMCINOLONE ACETONIDE 0.5% CREAM) 15 Gm Cream..g. 1 CRAIG TP BID for itching, #30 GM Prov: TESS SHEPPARD APRN 12/30/17 TESS SHEPPARD APRN Dec 30, 2017 23:00
== END 2017-12-30 23:03 | disposition home or self-care (01) ==
LOC: ER 22:33
DX: S50.861A Insect bite (nonvenomous) of right forearm, initial encounter (principal); L53.8 Other specified erythematous conditions; M19.90 Unspecified osteoarthritis, unspecified site; E11.9 Type 2 diabetes mellitus without complications; K21.9 Gastro-esophageal reflux disease without esophagitis; I10 Essential (primary) hypertension; Z90.49 Acquired absence of other specified parts of digestive tract; Z98.51 Tubal ligation status; W57.XXXA Bitten or stung by nonvenomous insect and other nonvenomous arthropods, initial encounter; Y93.89 Activity, other specified; Y92.89 Other specified places as the place of occurrence of the external cause; Y99.8 Other external cause status
CPT/HCPCS: 99283

== ENCOUNTER 2018-02-03 00:24 | Emergency (ER) | payer MEDICARE ==
[~2018-02-03] VITALS: Ht 180.3 cm; Wt 135.2 kg
[~2018-02-03 00:24] MED LIST changes: +ALBU2.5V8 INH; -HYDR-2758 PO; +HYDR-2761 PO; -HYDR12.53 PO; +HYDR12.575 PO; -PROAIR HFA8.5 GM INH; +TRIA15CR TP
[2018-02-03 00:39] VITALS: BP 137/82
[2018-02-03] MEDS ORDERED: PRED50TA PO (00:58)
[2018-02-03] MEDS ORDERED: BENZ100C PO (00:58)
[2018-02-03] MEDS ORDERED: ALBU2.5V8 INH (00:58)
--- NOTE | 2018-02-03 00:58 | PHYS DOC ---
Past Medical History Past Medical History: Anemia, Arthritis, Diabetes-Type II, GERD, Hypertension, Other Additional Past Medical Histor: BORDERLINE DIABETIC,BACK PAIN Past Surgical History: Cholecystectomy, Tubal ligation Alcohol Use: Occasionally Drug Use: None Adult General Chief Complaint Chief Complaint: Congestion HPI HPI Patient is a 47 year old AA female who presents to the emergency room with complaints of nasal congestion, ear fullness, productive cough with green sputum , and fatigue for the last 2-3 days. Patient reports that she has a history of type 2 diabetes and her blood sugars been running 95-100 usually. She denies any fever, body aches, sore throat, abdominal pain, nausea, vomiting, or diarrhea. Patient states she has not had her flu shot yet this year. Review of Systems Review of Systems Constitutional: Denies fever or chills [] Eyes: Denies redness, or eye pain [] HENT: reports Sinus pressure, See history of present illness Respiratory: Denies wheezing or shortness of breath today , states that she did have some wheezing 2 days ago, see history of present illness [] Cardiovascular: No additional information not addressed in HPI [] GI: Denies abdominal pain, nausea, vomiting, or diarrhea [] Integument: Denies rash or skin lesions [] Neurologic: Denies headache, focal weakness or sensory changes [] All other systems were reviewed and found to be within normal limits, except as documented in this note. Current Medications Current Medications Current Medications Medications (Trade) Dose Ordered Sig/[facility] Start Time Stop Time Status Last Admin Dose Admin Prednisone (Prednisone) 50 mg 1X ONCE 02/03/18 01:30 02/03/18 01:30 DC 02/03/18 01:14 50 MG Allergies Allergies Allergies Coded Allergies Type Severity Reaction Last Updated Verified No Known Drug Allergies 12/16/14 No Physical Exam Physical Exam Constitutional: Well developed, well nourished, no acute distress, non-toxic appearance, obese. [] HENT: Normocephalic, atraumatic, bilateral external ears normal, bilateral TMs normal, cobblestone appearance of posterior pharynx without erythema, 1+ tonsils bilaterally, oropharynx moist, no oral exudates, nose normal. [] Eyes: conjunctiva normal, no discharge. [] Neck: Normal range of motion, no tenderness, no lymphadenopathy, no stridor. [] Cardiovascular:Heart rate regular rhythm, no murmur [] Lungs & Thorax: Bilateral breath sounds clear to auscultation [] Skin: Warm, dry, no erythema, no rash. [] Extremities: No cyanosis, ROM intact, no edema. [] Neurologic: Alert and oriented X 3, normal motor function, normal sensory function, no focal deficits noted. [] Psychologic: Affect normal, judgement normal, mood normal. [] Current Patient Data Vital Signs Vital Signs Date Time Temp Pulse Resp B/P (MAP) Pulse Ox O2 Delivery O2 Flow Rate FiO2 02/03/18 00:39 98.2 87 16 137/82 (100) 98 Room Air 98.2 EKG EKG [] Radiology/Procedures Radiology/Procedures [] Course & Med Decision Making Course & Med Decision Making Pertinent Labs and Imaging studies reviewed. (See chart for details) Dx: URI, rhinitis PT given prednisone in the ER. Prescription written for proair, tessalon perrles , and prednisone. Increase clear fluids and rest, avoid airway irritants, use cool mist humidifier. Patient verbalized an understanding of home care, medications, follow-up, and return to ED instructions and was in agreement with the plan of care. [] Staff Physician Addendum: I was working in the ER during the course of this patient's visit. I was available for consultation as needed, but I was not directly involved in the care of this patient. Dragon Disclaimer Dragon Disclaimer This electronic medical record was generated, in whole or in part, using a voice recognition dictation system. Departure Departure Impression: Primary Impression: URI (upper respiratory infection) Additional Impression: Rhinitis Disposition: 01 HOME, SELF-CARE Condition: STABLE Referrals: ALBERT TOLEDO MD (PCP) Patient Instructions: Upper Respiratory Infection, Adult, [id number] Additional Instructions: Fill prescription(s) and use as directed. Recommend to use a Cool mist humidifier in room at bedtime. Tylenol or ibuprofen prn pain/fever. Increase clear fluids. Avoid triggers such as smoke, fragrance, dust, and pollen. Follow- up with your primary care doctor if symptoms persist, return to the ER symptoms worsen. Scripts Prednisone (PREDNISONE) 50 Mg Tablet 1 TAB PO DAILY, #4 TAB begin taking on 02/04/18 Prov: RAÚL TELLO APRN 12/21/18 Albuterol Sulfate (PROAIR HFA INHALER) 8.5 Gm Hfa.aer.ad 2 PUFF INH PRN Q6HRS PRN for SHORTNESS OF BREATH for 10 Days, #1 INHALER 0 Refills Prov: RAÚL TELLO APRN 02/03/18 Benzonatate (TESSALON PERLE) 100 Mg Capsule 1 CAP PO TID, #21 CAP 0 Refills Prov: RAÚL TELLO APRN 02/03/18 Problem Qualifiers Primary Impression: URI (upper respiratory infection) URI type: unspecified URI Qualified Codes: J06.9 - Acute upper respiratory infection, unspecified Additional Impression: Rhinitis Rhinitis type: acute Qualified Codes: J00 - Acute nasopharyngitis [common cold] RAÚL TELLO APRN Feb 03, 2018 00:58 ELMA RAMEY MD Feb 03, 2018 18:11
[2018-02-03] MEDS ORDERED: predniSONE 20 MG TABLET PO ONE (01:30)
== END 2018-02-03 01:18 | disposition home or self-care (01) ==
LOC: ER 00:24
DX: J31.0 Chronic rhinitis (principal); J06.9 Acute upper respiratory infection, unspecified; R53.83 Other fatigue; I10 Essential (primary) hypertension; E11.9 Type 2 diabetes mellitus without complications; K21.9 Gastro-esophageal reflux disease without esophagitis
CPT/HCPCS: 99283; J7512

== ENCOUNTER 2018-02-05 14:33 | Emergency (ER) | payer MEDICARE ==
[~2018-02-05] VITALS: Ht 180.3 cm; Wt 133.8 kg
[~2018-02-05 14:33] MED LIST changes: +BENZ100C PO
[2018-02-05 14:40] VITALS: BP 177/82
--- NOTE | 2018-02-05 16:04 | RAD ---
PQRS Compliance statement: One or more of the following individualized dose reduction techniques were utilized for this examination: 1. Automated exposure control. 2. Adjustment of the mA and/or kV according to patient size. 3. Use of iterative reconstruction technique. Indication:mastoid tenderness to left x few days
previous TECHNIQUE: CT head without IV contrast COMPARISON:08/05/2017 FINDINGS: No pathologic extra-axial or intra-axial fluid collection. The ventricles and basal cisterns are within normal limits. No acute intracranial bleed. No focal loss of ku-white differentiation. No large scalp hematoma. Orbits are within normal limits. No suspicious calvarial lesion. The bilateral mastoid air cells are well-aerated. Bilateral external auditory canals are patent. IMPRESSION: No acute intracranial process. If concern for acute ischemic stroke is high, please consider MRI brain. Electronically signed by: Damian Berrios DO (02/05/2018 4:00 PM) [facility]
--- NOTE | 2018-02-05 16:14 | PHYS DOC ---
Past Medical History Past Medical History: Anemia, Arthritis, Diabetes-Type II, GERD, Hypertension, Other Additional Past Medical Histor: BORDERLINE DIABETIC,BACK PAIN Past Surgical History: Cholecystectomy, Tubal ligation Alcohol Use: Occasionally Drug Use: None Adult General Chief Complaint Chief Complaint: HEADACHE HPI HPI Patient is a 47 year old female who presents with pain to her mastoid bone. The patient was seen here a few days ago and treated for an upper respiratory infection. She was given Tessalon Perles as well as other medications to control her symptoms. She states that those are not working. She states that the pain is radiating down into her shoulder. Review of Systems Review of Systems Constitutional: Denies fever or chills [] Eyes: Denies change in visual acuity, redness, or eye pain [] HENT: Denies nasal congestion or sore throat [] Respiratory: Denies cough or shortness of breath [] Cardiovascular: No additional information not addressed in HPI [] GI: Denies abdominal pain, nausea, vomiting, bloody stools or diarrhea [] : Denies dysuria or hematuria [] Musculoskeletal: See history of present illness Integument: Denies rash or skin lesions [] Neurologic: Denies headache, focal weakness or sensory changes [] Endocrine: Denies polyuria or polydipsia [] All other systems were reviewed and found to be within normal limits, except as documented in this note. Current Medications Current Medications Current Medications Medications (Trade) Dose Ordered Sig/[facility] Start Time Stop Time Status Last Admin Dose Admin Ketorolac Tromethamine (Toradol Im) 60 mg 1X ONCE 02/05/18 16:15 02/05/18 16:18 DC 02/05/18 16:37 60 MG Allergies Allergies Allergies Coded Allergies Type Severity Reaction Last Updated Verified No Known Drug Allergies 12/16/14 No Physical Exam Physical Exam Constitutional: Well developed, well nourished, no acute distress, non-toxic appearance. [] HENT: Normocephalic, atraumatic, bilateral external ears normal, oropharynx moist, no oral exudates, nose normal, tenderness to left mastoid bone with palpation. [] Eyes: PERRLA, EOMI, conjunctiva normal, no discharge. [] Neck: Normal range of motion, no tenderness, supple, no stridor. [] Cardiovascular:Heart rate regular rhythm, no murmur [] Lungs & Thorax: Bilateral breath sounds clear to auscultation [] Abdomen: Bowel sounds normal, soft, no tenderness, no masses, no pulsatile masses. [] Skin: Warm, dry, no erythema, no rash. [] Back: No tenderness, no CVA tenderness. [] Extremities: No tenderness, no cyanosis, no clubbing, ROM intact, no edema. [] Neurologic: Alert and oriented X 3, normal motor function, normal sensory function, no focal deficits noted, cranial nerves II through XII are grossly intact. [] Psychologic: Affect normal, judgement normal, mood normal. [] Current Patient Data Vital Signs Vital Signs Date Time Temp Pulse Resp B/P (MAP) Pulse Ox O2 Delivery O2 Flow Rate FiO2 02/05/18 14:40 98.1 99 18 177/82 (113) 97 Room Air 98.1 EKG EKG [] Radiology/Procedures Radiology/Procedures []PATIENT: LIDIA CRUZ AACCOUNT: [id number]#: [id number] : 1970 LOCATION: ER AGE: 47 SEX: F EXAM STATUS: REG ER ORD. PHYSICIAN: TESS SHEPPARD APRN REASON: mastoid tenderness to left PROCEDURE: CT HEAD WO CONTRAST PQRS Compliance statement: One or more of the following individualized dose reduction techniques were utilized for this examination: 1. Automated exposure control. 2. Adjustment of the mA and/or kV according to patient size. 3. Use of iterative reconstruction technique. Indication:mastoid tenderness to left x few days
previous TECHNIQUE: CT head without IV contrast COMPARISON:08/05/2017 FINDINGS: No pathologic extra-axial or intra-axial fluid collection. The ventricles and basal cisterns are within normal limits. No acute intracranial bleed. No focal loss of ku-white differentiation. No large scalp hematoma. Orbits are within normal limits. No suspicious calvarial lesion. The bilateral mastoid air cells are well-aerated. Bilateral external auditory canals are patent. IMPRESSION: No acute intracranial process. If concern for acute ischemic stroke is high, please consider MRI brain. Electronically signed by: Damian Berrios DO (02/05/2018 4:00 PM) [facility] DICTATED and SIGNED BY: DAMIAN BERRIOS DO DATE: 02/05/18 1558 Course & Med Decision Making Course & Med Decision Making Pertinent Labs and Imaging studies reviewed. (See chart for details) The patient is negative for acute cranial abnormality. She was given Toradol in the emergency department her symptoms. She is to continue taking the medication she was given her prior visit. She is in agreement with this plan. Dragon Disclaimer Dragon Disclaimer This electronic medical record was generated, in whole or in part, using a voice recognition dictation system. Departure Departure Impression: Primary Impression: Headache Additional Impression: URI (upper respiratory infection) Disposition: 01 HOME, SELF-CARE Condition: STABLE Referrals: ALBERT TOLEDO MD (PCP) Patient Instructions: General Headache Without Cause, Upper Respiratory Infection, Adult Additional Instructions: You were given Toradol in the emergency department for your headache. Follow up with your primary care provider for further evaluation in 3 days. You may take ibuprofen or Tylenol for pain. If worsening return to the emergency department. Problem Qualifiers TESS SHEPPARD APRN Feb 05, 2018 16:13
[2018-02-05] MEDS ORDERED: KETOROLAC 60 MG/2 ML VIAL. IM ONE (16:15)
== END 2018-02-05 16:41 | disposition home or self-care (01) ==
LOC: ER 14:33
DX: R51 Headache (principal); J06.9 Acute upper respiratory infection, unspecified; M25.512 Pain in left shoulder; K21.9 Gastro-esophageal reflux disease without esophagitis; E11.9 Type 2 diabetes mellitus without complications; I10 Essential (primary) hypertension; Z90.49 Acquired absence of other specified parts of digestive tract; Z98.51 Tubal ligation status
CPT/HCPCS: 70450; 96372; 99284; J1885

== ENCOUNTER 2018-05-11 12:43 | Emergency (ER) | payer MEDICARE ==
[~2018-05-11] VITALS: Ht 180.3 cm; Wt 134.7 kg
[~2018-05-11 12:43] MED LIST changes: +OMEP20CA10 PO; -OMEP20CA9 PO
[2018-05-11] MEDS ORDERED: NITROGLYCERIN SUBLINGUAL 0.4 MG BOTTLE OF 25. SL PRN (13:00)
[2018-05-11] MEDS ORDERED: ASPIRIN CHEWABLE 81 MG TABLET. PO ONE (13:00)
--- NOTE | 2018-05-11 13:09 | PHYS DOC ---
Past Medical History Past Medical History: Anemia, Arthritis, Diabetes-Type II, GERD, Hypertension, Other Additional Past Medical Histor: BORDERLINE DIABETIC,BACK PAIN Past Surgical History: Cholecystectomy, Tubal ligation Alcohol Use: Occasionally Drug Use: None Adult General Chief Complaint Chief Complaint: chest pain HPI HPI Patient is a 47 year old female who presents with complaining of chest pain. Patient states she has had intermittent episodes of left shoulder pain for the last 4 days without injury or focal neuro deficit and today had pain in left subaxillary and substernal area as a constant pain with mild shortness of breath and dizziness. Patient denies palpitation, fever and chills, nausea and vomiting, cough and congestion. Patient rated her pain 4/10. Patient has history of hypertension and borderline diabetes mellitus and family history of coronary artery disease. Patient denies history of chest pain. Review of Systems Review of Systems Constitutional: Denies fever or chills [] Eyes: Denies change in visual acuity, redness, or eye pain [] HENT: Denies nasal congestion or sore throat [] Respiratory: Denies cough or shortness of breath [] Cardiovascular: No additional information not addressed in HPI [] GI: Denies abdominal pain, nausea, vomiting, bloody stools or diarrhea [] : Denies dysuria or hematuria [] Musculoskeletal: Denies back pain, reports joint pain [] Integument: Denies rash or skin lesions [] Neurologic: Denies headache, focal weakness or sensory changes [] Endocrine: Denies polyuria or polydipsia [] All other systems were reviewed and found to be within normal limits, except as documented in this note. Current Medications Current Medications Current Medications Medications (Trade) Dose Ordered Sig/Tena Start Time Stop Time Status Last Admin Dose Admin Aspirin (Children'S Aspirin) 324 mg 1X ONCE 05/11/18 13:00 05/11/18 13:08 DC Magnesium Oxide (Magnesium Oxide) 400 mg 1X ONCE 05/11/18 14:45 05/11/18 14:46 DC 05/11/18 15:11 400 MG Nitroglycerin (Nitrostat) 0.4 mg PRN Q5MIN PRN 05/11/18 13:00 05/11/18 15:28 DC Potassium Chloride (Klor-Con) 40 meq 1X ONCE 05/11/18 14:30 05/11/18 14:34 DC 05/11/18 15:13 40 MEQ Allergies Allergies Allergies Coded Allergies Type Severity Reaction Last Updated Verified No Known Drug Allergies 12/16/14 No Physical Exam Physical Exam Constitutional: Well developed, well nourished, mild distress, non-toxic appearance, morbidly obese. [] HENT: Normocephalic, atraumatic. Eyes: PERRLA, EOMI, conjunctiva normal, no discharge. [] Neck: Normal range of motion, no tenderness, supple, no stridor. [] Cardiovascular:Heart rate regular rhythm, no murmur [] Lungs & Thorax: Bilateral breath sounds clear to auscultation [] Abdomen: Bowel sounds normal, soft, no tenderness, no masses, no pulsatile masses. [] Skin: Warm, dry, no erythema, no rash. [] Back: No tenderness, no CVA tenderness. [] Extremities: No tenderness, no cyanosis, no clubbing, ROM intact, no edema. [] Neurologic: Alert and oriented X 3, normal motor function, normal sensory function, no focal deficits noted. [] Psychologic: Affect normal, judgement normal, mood normal. [] Current Patient Data Vital Signs Vital Signs Date Time Temp Pulse Resp B/P (MAP) Pulse Ox O2 Delivery O2 Flow Rate FiO2 05/11/18 14:30 76 16 107/60 (76) 97 Room Air 05/11/18 13:00 99.3 99.3 Lab Values Laboratory Tests Test 05/11/18 13:35 White Blood Count 5.8 x10^3/uL (4.0-11.0) Red Blood Count 4.30 x10^6/uL (3.50-5.40) Hemoglobin 13.0 g/dL (12.0-15.5) Hematocrit 39.3 % (36.0-47.0) Mean Corpuscular Volume 92 fL (79-100) Mean Corpuscular Hemoglobin 30 pg (25-35) Mean Corpuscular Hemoglobin Concent 33 g/dL (31-37) Red Cell Distribution Width 13.7 % (11.5-14.5) Platelet Count 231 x10^3/uL (140-400) Neutrophils (%) (Auto) 65 % (31-73) Lymphocytes (%) (Auto) 25 % (24-48) Monocytes (%) (Auto) 9 % (0-9) Eosinophils (%) (Auto) 0 % (0-3) Basophils (%) (Auto) 0 % (0-3) Neutrophils # (Auto) 3.8 x10^3uL (1.8-7.7) Lymphocytes # (Auto) 1.4 x10^3/uL (1.0-4.8) Monocytes # (Auto) 0.5 x10^3/uL (0.0-1.1) Eosinophils # (Auto) 0.0 x10^3/uL (0.0-0.7) Basophils # (Auto) 0.0 x10^3/uL (0.0-0.2) Sodium Level 137 mmol/L (136-145) Potassium Level 3.2 mmol/L (3.5-5.1) L Chloride Level 99 mmol/L (98-107) Carbon Dioxide Level 30 mmol/L (21-32) Anion Gap 8 (6-14) Blood Urea Nitrogen 8 mg/dL (7-20) Creatinine 0.9 mg/dL (0.6-1.0) Estimated GFR (Cockcroft-Gault) 81.2 BUN/Creatinine Ratio 9 (6-20) Glucose Level 170 mg/dL (70-99) H Calcium Level 8.9 mg/dL (8.5-10.1) Magnesium Level 1.7 mg/dL (1.8-2.4) L Total Bilirubin 0.4 mg/dL (0.2-1.0) Aspartate Amino Transferase (AST) 20 U/L (15-37) Alanine Aminotransferase (ALT) 21 U/L (14-59) Alkaline Phosphatase 66 U/L (46-116) Creatine Kinase 141 U/L (26-192) Troponin I Quantitative < 0.017 ng/mL (0.000-0.055) TG-Ayv-D-Type Natriuretic Peptide 38 pg/mL (0-124) Total Protein 8.1 g/dL (6.4-8.2) Albumin 3.3 g/dL (3.4-5.0) L Albumin/Globulin Ratio 0.7 (1.0-1.7) L Lipase 70 U/L (73-393) L Laboratory Tests 05/11/18 13:35 Laboratory Tests 05/11/18 13:35 EKG EKG EKG interpreted by me. EKG at 1252 showed normal sinus rhythm at rate of 98, occasional PVCs, no acute ST and T-wave abnormalities. Radiology/Procedures Radiology/Procedures [facility] [address] [place] [address] IMAGING REPORT Signed PATIENT: LIDIA CRUZ ACCOUNT: [id number] : 1970 LOCATION: ER AGE: 47 SEX: F EXAM STATUS: REG ER ORD. PHYSICIAN: FRANKLIN HAYNES MD REASON: chest pain PROCEDURE: CHEST PA & LATERAL Chest, PA and Lateral: Technique: PA and lateral views of the chest were obtained. History: Chest pain. Comparison: 10/30/2017. Findings: The heart and pulmonary vasculature appear within normal limits. The lungs are clear. The pleural margins are clear. Impression: No acute chest process is seen. Electronically signed by: Chip Gore MD (05/11/2018 2:16 PM) [facility] DICTATED and SIGNED BY: CHIP GORE MD DATE: 05/11/18 1416 Course & Med Decision Making Course & Med Decision Making Pertinent Labs and Imaging studies reviewed. (See chart for details) Evaluation of patient in ER showed 47-year-old female patient with complaining of left shoulder intermittent pain for few days with left-sided chest pain since this morning as a constant pain. Patient has reproducible left chest pain. Patient had mild hypokalemia and hypomagnesemia and treated with oral potassium and magnesium. Patient had stable vital signs. Patient informed about this result and needs to follow up with her primary care physician. Dragon Disclaimer Dragon Disclaimer This electronic medical record was generated, in whole or in part, using a voice recognition dictation system. Departure Departure Impression: Primary Impression: Musculoskeletal chest pain Additional Impressions: Hypokalemia Hypomagnesemia Disposition: HOME, SELF-CARE (at 1440) Condition: IMPROVED Referrals: ALBERT TOLEDO MD (PCP) Patient Instructions: Chest Wall Pain, Hypokalemia, Hypomagnesemia, Musculoskeletal Pain Additional Instructions: Continue home medication Follow-up with your primary care physician in 2-3 days Return to ER if not getting better Problem Qualifiers FRANKLIN HAYNES MD May 11, 2018 13:09
[2018-05-11 13:46] LABS: BASO % 0 % (0-3); EOS % 0 % (0-3); HEMATOCRIT 39.3 % (36.0-47.0); LYMPH # 1.4 x10^3/uL (1.0-4.8); LYMPH % 25 % (24-48); MEAN CORPUSCULAR HEMOGLOBIN 30 pg (25-35); MEAN CORPUSCULAR HGB CONC 33 g/dL (31-37); MEAN CORPUSCULAR VOLUME 92 fL (79-100); MONO # 0.5 x10^3/uL (0.0-1.1); MONO % 9 % (0-9); NEUT # 3.8 x10^3uL (1.8-7.7); NEUT % 65 % (31-73); PLATELET COUNT 231 x10^3/uL (140-400); RED CELL DISTRIBUTION WIDTH 13.7 % (11.5-14.5); WHITE BLOOD COUNT 5.8 x10^3/uL (4.0-11.0)
[2018-05-11 13:59] LABS: CALCIUM 8.9 mg/dL (8.5-10.1); CREATININE 0.9 mg/dL (0.6-1.0); GFR 81.2; POTASSIUM 3.2 mmol/L (3.5-5.1)
[2018-05-11 14:06] LABS: ALBUMIN 3.3 g/dL (3.4-5.0); ALBUMIN/GLOBULIN RATIO 0.7 (1.0-1.7); MAGNESIUM 1.7 mg/dL (1.8-2.4); TOTAL BILIRUBIN 0.4 mg/dL (0.2-1.0); TOTAL PROTEIN 8.1 g/dL (6.4-8.2)
--- NOTE | 2018-05-11 14:19 | RAD ---
Chest, PA and Lateral: Technique: PA and lateral views of the chest were obtained. History: Chest pain. Comparison: 10/30/2017. Findings: The heart and pulmonary vasculature appear within normal limits. The lungs are clear. The pleural margins are clear. Impression: No acute chest process is seen. Electronically signed by: Chip Gore MD (05/11/2018 2:16 PM) [facility]
--- NOTE | 2018-05-11 14:25 | EKG ---
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
[2018-05-11 14:30] VITALS: BP 107/60
[2018-05-11] MEDS ORDERED: POTASSIUM CHLORIDE 20 MEQ TABLET.ER. PO ONE (14:30)
[2018-05-11] MEDS ORDERED: MAGNESIUM OXIDE 400 MG TABLET PO ONE (14:45)
== END 2018-05-11 15:24 | disposition home or self-care (01) ==
LOC: ER 12:43
DX: R07.2 Precordial pain (principal); E87.6 Hypokalemia; E83.42 Hypomagnesemia; M25.512 Pain in left shoulder; R06.02 Shortness of breath; E11.9 Type 2 diabetes mellitus without complications; K21.9 Gastro-esophageal reflux disease without esophagitis; I10 Essential (primary) hypertension
CPT/HCPCS: 36415; 71046; 80053; 82550; 83690; 83735; 83880; 84484; 85025; 93005; 99284-25

== ENCOUNTER 2018-12-19 11:32 | Emergency (ER) | payer MEDICARE ==
[~2018-12-19] VITALS: Ht 180.3 cm; Wt 137.0 kg
[~2018-12-19 11:32] MED LIST changes: +LIDO700A21 TP; -LIDO700A39 TP; +LISI1TAB19 PO; -LISI1TAB5 PO; +METF500T11 PO; -METF500T9 PO; -PANT40TA5 PO; +PANT40TA77 PO
[2018-12-19] MEDS ORDERED: IV NORMAL SALINE 1000ML BAG 1,000 ML IV ONE (12:45)
[2018-12-19] MEDS ORDERED: LIDO:MAALOX 1:1 20 ML SINGLE DOSE. SWSW ONE (12:45)
[2018-12-19 12:46] LABS: BASO # 0.1 x10^3/uL (0.0-0.2); BASO % 1 % (0-3); EOS # 0.1 x10^3/uL (0.0-0.7); EOS % 1 % (0-3); HEMATOCRIT 40.1 % (36.0-47.0); HEMOGLOBIN 13.5 g/dL (12.0-15.5); LYMPH # 2.1 x10^3/uL (1.0-4.8); LYMPH % 30 % (24-48); MEAN CORPUSCULAR HEMOGLOBIN 30 pg (25-35); MEAN CORPUSCULAR HGB CONC 34 g/dL (31-37); MEAN CORPUSCULAR VOLUME 90 fL (79-100); MONO # 0.7 x10^3/uL (0.0-1.1); MONO % 10 % (0-9); NEUT # 4.1 x10^3/uL (1.8-7.7); NEUT % 59 % (31-73); PLATELET COUNT 211 x10^3/uL (140-400); RED BLOOD COUNT 4.47 x10^6/uL (3.50-5.40); RED CELL DISTRIBUTION WIDTH 13.2 % (11.5-14.5)
[2018-12-19 12:48] LABS: BILIRUBIN,URINE NEGATIVE (NEG); CLARITY,URINE CLEAR; COLOR,URINE YELLOW; NITRITE,URINE NEGATIVE (NEG); PH,URINE 5.5; PROTEIN,URINE NEGATIVE (NEG-TRACE); UROBILINOGEN,URINE 0.2 mg/dL (0.2 mg/dL)
[2018-12-19 12:59] LABS: CALCIUM 9.2 mg/dL (8.5-10.1); CREATININE 0.8 mg/dL (0.6-1.0); GFR 92.6; POTASSIUM 3.5 mmol/L (3.5-5.1)
[2018-12-19 13:00] LABS: BACTERIA,URINE 0 /HPF (0-FEW); SQUAMOUS EPITHELIAL CELL,UR MOD /LPF; WBC,URINE 0 /HPF (0-4)
[2018-12-19 13:06] LABS: ALBUMIN 3.8 g/dL (3.4-5.0); ALBUMIN/GLOBULIN RATIO 0.8 (1.0-1.7); MAGNESIUM 1.7 mg/dL (1.8-2.4); TOTAL BILIRUBIN 0.3 mg/dL (0.2-1.0); TOTAL PROTEIN 8.5 g/dL (6.4-8.2)
[2018-12-19 13:40] VITALS: BP 122/82
[2018-12-19] MEDS ORDERED: OMEP20CA10 PO (13:53)
--- NOTE | 2018-12-19 13:54 | PHYS DOC ---
Past Medical History Past Medical History: Anemia, Arthritis, Diabetes-Type II, GERD, Hypertension, Other Additional Past Medical Histor: BORDERLINE DIABETIC,BACK PAIN Past Surgical History: Cholecystectomy, Tubal ligation Alcohol Use: Occasionally Drug Use: None Adult General Chief Complaint Chief Complaint: ABDOMINAL PAIN HPI HPI Patient is a 48 year old AA female who presents to the emergency department with complaints of right upper quadrant and epigastric pain that has been intermittent for the last 4 days. Patient states that the pain seems to increase after she eats food. She reports that she had her gallbladder taken out approximately one year ago. Patient states she had 6 episodes of diarrhea yesterday but denies any blood in her diarrhea and denies having any diarrhea today. She also denies any fever, cough, shortness of breath, chest pain, palpitations, nausea, vomiting, headache, numbness, tingling, or weakness. Patient states she does have a little bit of low back pain. She denies any increased urinary frequency, hematuria, dysuria, or irregular vaginal discharge. Patient states her last menstrual cycle was on October 29, 2018. She denies concerns of states that she has had her tubes tied. Currently she describes the pain as aching and throbbing currently 8 out of 10 on the pain scale, there are no alleviating factors. All other ROS is neg unless otherwise noted in HPI. Review of Systems Review of Systems See Above Current Medications Current Medications Current Medications Medications (Trade) Dose Ordered Sig/Tena Start Time Stop Time Status Last Admin Dose Admin Multi-Ingredient Mouthwash/Gargle (Gi Cocktail) 20 ml 1X ONCE 12/19/18 12:45 12/19/18 12:46 DC 12/19/18 12:45 20 ML Sodium Chloride 1,000 ml @ 1,000 mls/hr 1X ONCE 12/19/18 12:45 12/19/18 13:44 DC 12/19/18 13:00 1,000 MLS/HR Allergies Allergies Allergies Coded Allergies Type Severity Reaction Last Updated Verified No Known Drug Allergies 12/16/14 No Physical Exam Physical Exam See Above Constitutional: Well developed, well nourished, no acute distress, non-toxic appearance, obese. [] HENT: Normocephalic, atraumatic, bilateral external ears normal, oropharynx moist, no oral exudates, nose normal. [] Eyes: PERRLA, EOMI, conjunctiva normal, no discharge. [] Neck: Normal range of motion, no tenderness, supple, no stridor. [] Cardiovascular:Heart rate regular rhythm, no murmur [] Lungs & Thorax: Bilateral breath sounds clear to auscultation [] Abdomen: Bowel sounds normal, soft, RUQ and epigastric TTP, no rebound tenderness, no guarding, no masses, no pulsatile masses. [] Skin: Warm, dry, no erythema, no rash. [] Back: No tenderness, no CVA tenderness. [] Extremities: No cyanosis, ROM intact Neurologic: Alert and oriented X 3, no focal deficits noted. [] Psychologic: Affect normal, judgement normal, mood normal. [] Current Patient Data Vital Signs Vital Signs Date Time Temp Pulse Resp B/P (MAP) Pulse Ox O2 Delivery O2 Flow Rate FiO2 12/19/18 13:40 79 122/82 (95) 97 Room Air 12/19/18 11:53 98.1 20 98.1 Lab Values Laboratory Tests Test 12/19/18 11:50 12/19/18 11:53 12/19/18 12:00 Urine Collection Type Unknown Urine Color Yellow Urine Clarity Clear Urine pH 5.5 Urine Specific Mcnary 1.010 Urine Protein Negative mg/dL (NEG-TRACE) Urine Glucose (UA) Negative mg/dL (NEG) Urine Ketones (Stick) Negative mg/dL (NEG) Urine Blood Negative (NEG) Urine Nitrite Negative (NEG) Urine Bilirubin Negative (NEG) Urine Urobilinogen Dipstick 0.2 mg/dL (0.2 mg/dL) Urine Leukocyte Esterase Negative (NEG) Urine RBC 1-2 /HPF (0-2) Urine WBC 0 /HPF (0-4) Urine Squamous Epithelial Cells Mod /LPF Urine Bacteria 0 /HPF (0-FEW) Urine Mucus Slight /LPF POC Urine HCG, Qualitative Hcg negative (Negative) White Blood Count 7.0 x10^3/uL (4.0-11.0) Red Blood Count 4.47 x10^6/uL (3.50-5.40) Hemoglobin 13.5 g/dL (12.0-15.5) Hematocrit 40.1 % (36.0-47.0) Mean Corpuscular Volume 90 fL (79-100) Mean Corpuscular Hemoglobin 30 pg (25-35) Mean Corpuscular Hemoglobin Concent 34 g/dL (31-37) Red Cell Distribution Width 13.2 % (11.5-14.5) Platelet Count 211 x10^3/uL (140-400) Neutrophils (%) (Auto) 59 % (31-73) Lymphocytes (%) (Auto) 30 % (24-48) Monocytes (%) (Auto) 10 % (0-9) H Eosinophils (%) (Auto) 1 % (0-3) Basophils (%) (Auto) 1 % (0-3) Neutrophils # (Auto) 4.1 x10^3/uL (1.8-7.7) Lymphocytes # (Auto) 2.1 x10^3/uL (1.0-4.8) Monocytes # (Auto) 0.7 x10^3/uL (0.0-1.1) Eosinophils # (Auto) 0.1 x10^3/uL (0.0-0.7) Basophils # (Auto) 0.1 x10^3/uL (0.0-0.2) Sodium Level 138 mmol/L (136-145) Potassium Level 3.5 mmol/L (3.5-5.1) Chloride Level 100 mmol/L (98-107) Carbon Dioxide Level 31 mmol/L (21-32) Anion Gap 7 (6-14) Blood Urea Nitrogen 9 mg/dL (7-20) Creatinine 0.8 mg/dL (0.6-1.0) Estimated GFR (Cockcroft-Gault) 92.6 BUN/Creatinine Ratio 11 (6-20) Glucose Level 127 mg/dL (70-99) H Calcium Level 9.2 mg/dL (8.5-10.1) Magnesium Level 1.7 mg/dL (1.8-2.4) L Total Bilirubin 0.3 mg/dL (0.2-1.0) Aspartate Amino Transferase (AST) 22 U/L (15-37) Alanine Aminotransferase (ALT) 26 U/L (14-59) Alkaline Phosphatase 80 U/L (46-116) Total Protein 8.5 g/dL (6.4-8.2) H Albumin 3.8 g/dL (3.4-5.0) Albumin/Globulin Ratio 0.8 (1.0-1.7) L Lipase 63 U/L (73-393) L Laboratory Tests 12/19/18 12:00 Laboratory Tests 12/19/18 12:00 EKG EKG [] Radiology/Procedures Radiology/Procedures [] Course & Med Decision Making Course & Med Decision Making Pertinent Labs and Imaging studies reviewed. (See chart for details) dx: GERD ddx: pancreatitis, SBO, cholecystitis CBC and CMP were unremarkable, UA is also unremarkable. Patient was given a GI cocktail in the emergency department, she reports that her pain is much improved after taking the medication. Discussed lab results and the likelihood of acid reflux with the patient. She was prescribed 20 mg of omeprazole twice a day with food and given diet instructions for reflux. Patient currently follow-up with her primary care docto r in the next 1-2 days for reevaluation. Patient verbalized an understanding of home care, medications, follow-up, and return to ED instructions and was in agreement with the plan of care. Dragon Disclaimer Dragon Disclaimer This electronic medical record was generated, in whole or in part, using a voice recognition dictation system. Departure Departure Impression: Primary Impression: GERD (gastroesophageal reflux disease) Disposition: 01 HOME, SELF-CARE Condition: STABLE Referrals: ALBERT TOLEDO MD (PCP) Patient Instructions: Diet for Gastroesophageal Reflux Disease, Adult, [id number], Gastroesophageal Reflux Disease, Adult, [id number] Additional Instructions: Fill the prescription and take as directed. Follow the diet instructions provided. Follow up with your primary care doctor in 1-2 days, return to the ER if symptoms worsen. Scripts Omeprazole (OMEPRAZOLE) 20 Mg Capsule.dr 1 CAP PO BID for 30 Days, #60 CAP 0 Refills Prov: RAÚL TELLO RADAR OPERATOR 12/19/18 Problem Qualifiers Primary Impression: GERD (gastroesophageal reflux disease) Esophagitis presence: esophagitis presence not specified Qualified Codes: K21.9 - Gastro-esophageal reflux disease without esophagitis RAÚL TELLO RADAR OPERATOR Dec 19, 2018 13:54
== END 2018-12-19 14:02 | disposition home or self-care (01) ==
LOC: ER 11:32
DX: K21.9 Gastro-esophageal reflux disease without esophagitis (principal); R19.7 Diarrhea, unspecified; M19.90 Unspecified osteoarthritis, unspecified site; E11.9 Type 2 diabetes mellitus without complications; I10 Essential (primary) hypertension; Z90.49 Acquired absence of other specified parts of digestive tract; Z98.51 Tubal ligation status
CPT/HCPCS: 36415; 80053; 81001; 81025; 83690; 83735; 85025; 96360; 99284; J7030

== ENCOUNTER 2019-08-07 13:13 | Emergency (ER) | payer MEDICARE ==
[~2019-08-07] VITALS: Ht 154.9 cm; Wt 135.0 kg
[~2019-08-07 13:13] MED LIST changes: +METF-658 PO; -METF500T11 PO; +MULT-445 PO; -MULT1TAB52 PO; -OMEP20CA10 PO; +OMEP20CA16 PO
[2019-08-07 13:57] VITALS: BP 160/90
[2019-08-07] MEDS ORDERED: NAPR-514 PO (14:12)
--- NOTE | 2019-08-07 14:12 | PHYS DOC ---
Past Medical History Past Medical History: Anemia, Arthritis, Diabetes-Type II, GERD, Hypertension, Other Additional Past Medical Histor: BORDERLINE DIABETIC,BACK PAIN Past Surgical History: Cholecystectomy, Tubal ligation Smoking Status: Never Smoker Alcohol Use: Occasionally Drug Use: None General Adult EDM: Chief Complaint: OTHER COMPLAINTS HPI: HPI: Patient is a 48-year-old female who presents with pain behind her left ear. She says is been a problem for the last couple of days. She states the ear itself does not hurt its the bony part behind her ear that seems painful. There is nothing in particular that causes her to increase the pain. She denies any fev er chills or sweats. She states it does not feel swollen. [] Review of Systems: Review of Systems: Constitutional: Denies fever or chills. [] Eyes: Denies change in visual acuity. [] HENT: Denies nasal congestion or sore throat. [] Respiratory: Denies cough or shortness of breath. [] Cardiovascular: Denies chest pain or edema. [] GI: Denies abdominal pain, nausea, vomiting, bloody stools or diarrhea. [] : Denies dysuria. [] Musculoskeletal: Denies back pain or joint pain. [] Integument: Denies rash. [] Neurologic: Denies headache, focal weakness or sensory changes. [] Endocrine: Denies polyuria or polydipsia. [] Lymphatic: Denies swollen glands. [] Psychiatric: Denies depression or anxiety. [] Heart Score: Risk Factors: Risk Factors: DM, Current or recent (<one month) smoker, HTN, HLP, family history of CAD, obesity. Risk Scores: Score 0 - 3: 2.5% MACE over next 6 weeks - Discharge Home Score 4 - 6: 20.3% MACE over next 6 weeks - Admit for Clinical Observation Score 7 - 10: 72.7% MACE over next 6 weeks - Early Invasive Strategies Allergies: Allergies: Allergies Coded Allergies Type Severity Reaction Last Updated Verified No Known Drug Allergies 12/16/14 No Physical Exam: PE: Constitutional: Well developed, well nourished, no acute distress, non-toxic appearance. [] HENT: Normocephalic, atraumatic, bilateral external ears normal, mild tenderness behind the left ear there is no significant tenderness over the mastoid, oropharynx moist, no oral exudates, nose normal. [] Eyes: PERRLA, EOMI, conjunctiva normal, no discharge. [] Neck: Normal range of motion, no tenderness, supple, no stridor. [] Cardiovascular:Heart rate regular rhythm, no murmur [] Lungs & Thorax: Bilateral breath sounds clear to auscultation [] Abdomen: Bowel sounds normal, soft, no tenderness, no masses, no pulsatile masses. [] Skin: Warm, dry, no erythema, no rash. [] Back: No tenderness, no CVA tenderness. [] Extremities: No tenderness, no cyanosis, no clubbing, ROM intact, no edema. [] Neurologic: Alert and oriented X 3, normal motor function, normal sensory function, no focal deficits noted. [] Psychologic: Affect normal, judgement normal, mood normal. [] EKG: EKG: [] Radiology/Procedures: Radiology/Procedures: [] Course & Med Decision Making: Course & Med Decision Making Pertinent Labs and Imaging studies reviewed. (See chart for details) [] Dragon Disclaimer: Dragon Disclaimer: This electronic medical record was generated, in whole or in part, using a voice recognition dictation system. Departure Departure Impression: Primary Impression: Chronic neck pain Disposition: 01 HOME, SELF-CARE Condition: STABLE Referrals: ALBERT TOLEDO MD (PCP) Patient Instructions: Soft Tissue Injury of the Neck Scripts Naproxen (NAPROXEN) 500 Mg Tablet 1 TAB PO BID PRN for PAIN, #30 TAB 1 Refill Prov: MILENA KELLEY DO 08/07/19 Justicifation of Admission Dx: Justifications for Admission: Justification of Admission Dx: No MILENA KELLEY DO Aug 07, 2019 14:12
== END 2019-08-07 14:15 | disposition home or self-care (01) ==
LOC: ER 13:13
DX: G89.29 Other chronic pain (principal); M54.2 Cervicalgia; K21.9 Gastro-esophageal reflux disease without esophagitis; E11.9 Type 2 diabetes mellitus without complications; I10 Essential (primary) hypertension
CPT/HCPCS: 99282

== ENCOUNTER 2020-03-15 11:55 | Emergency (ER) | payer MEDICARE ==
[~2020-03-15] VITALS: Ht 180.3 cm; Wt 131.5 kg
[~2020-03-15 11:55] MED LIST changes: -LISI1TAB19 PO; +LISI1TAB37 PO; +NAPR-514 PO
--- NOTE | 2020-03-15 12:40 | PHYS DOC ---
Past Medical History Past Medical History: Anemia, Arthritis, Diabetes-Type II, GERD, Hypertension, Other Additional Past Medical Histor: BORDERLINE DIABETIC,BACK PAIN Past Surgical History: Cholecystectomy, Tubal ligation Smoking Status: Never Smoker Alcohol Use: Occasionally Drug Use: None General Adult EDM: Chief Complaint: UPPER EXTREMITY PAIN HPI: HPI: Patient is a 49 year old female who presents with 2 days of left shoulder pain that is aching goes up into the trapezius area down into the lateral shoulder area and in front slightly into the chest area. She states that she does have arthritis in the shoulder this is a different kind of pain is one of the last 2 days she is and is just irritating. She rates her pain or discomfort an 8 out of 10. States she been taking Tylenol at home. She states today she had a couple dizzy spells. Patient has a history of obesity, anemia, arthritis, diabetes, hypertension, GERD, cholecystectomy, back pain. Review of Systems: Review of Systems: Constitutional: Denies fever or chills. [] Eyes: Denies change in visual acuity. [] HENT: Denies nasal congestion or sore throat. [] Respiratory: Denies cough or shortness of breath. [] Cardiovascular: Denies chest pain or edema. [] GI: Denies abdominal pain, nausea, vomiting, bloody stools or diarrhea. [] : Denies dysuria. [] Musculoskeletal: Denies back pain. + Left shoulder joint pain. [] Integument: Denies rash. [] Neurologic: Denies headache, focal weakness or sensory changes. + Dizzy spells [] Endocrine: Denies polyuria or polydipsia. [] Lymphatic: Denies swollen glands. [] Psychiatric: Denies depression or anxiety. [] Heart Score: HEART Score for Chest Pain: HEART Score for Chest Pain Response (Comments) Value History Slighlty/Non-Suspicious 0 ECG Normal 0 Age >45 - < 65 1 Risk Factors >3 Risk Factors or Hx CAD 2 Troponin < Normal Limit 0 Total 3 Risk Factors: Risk Factors: DM, Current or recent (<one month) smoker, HTN, HLP, family history of CAD, obesity. Risk Scores: Score 0 - 3: 2.5% MACE over next 6 weeks - Discharge Home Score 4 - 6: 20.3% MACE over next 6 weeks - Admit for Clinical Observation Score 7 - 10: 72.7% MACE over next 6 weeks - Early Invasive Strategies Current Medications: Current Medications Medications (Trade) Dose Ordered Sig/Tena Start Time Stop Time Status Last Admin Dose Admin Diclofenac Sodium (Voltaren) 25 mg 1X ONCE 03/15/20 12:45 03/15/20 12:46 UNV Allergies: Allergies: Allergies Coded Allergies Type Severity Reaction Last Updated Verified No Known Drug Allergies 12/16/14 No Physical Exam: PE: Constitutional: Well developed, well nourished, no acute distress, non-toxic appearance. [] HENT: Normocephalic, atraumatic, bilateral external ears normal, oropharynx moist, no oral exudates, nose normal. [] Eyes: PERRLA, EOMI, conjunctiva normal, no discharge. [] Neck: Normal range of motion, no tenderness, supple, no stridor. [] Cardiovascular:Heart rate regular rhythm, no murmur [] Lungs & Thorax: Bilateral breath sounds clear to auscultation [] Abdomen: Bowel sounds normal, soft, no tenderness, no masses, no pulsatile masses. [] Skin: Warm, dry, no erythema, no rash. [] Back: No tenderness, no CVA tenderness. [] Extremities: No tenderness, no cyanosis, no clubbing, ROM intact, no edema. [] Neurologic: Alert and oriented X 3, normal motor function, normal sensory function, no focal deficits noted. [] Psychologic: Affect normal, judgement normal, mood normal. Normal physical exam [] Current Patient Data: Vital Signs: Vital Signs Date Time Temp Pulse Resp B/P (MAP) Pulse Ox O2 Delivery O2 Flow Rate FiO2 03/15/20 12:00 98.0 106 14 181/77 (111) 97 Room Air 98.0 EKG: EK and read by Dr. Crooks as sinus rhythm and no STEMI Radiology/Procedures: Radiology/Procedures: [] Course & Med Decision Making: Course & Med Decision Making Pertinent Labs and Imaging studies reviewed. (See chart for details) See HPI. Alert and oriented x4. Ambulatory with a steady gait. Skin pink warm and dry. Full range of motion of the shoulder. There is no swelling of the extremity or laxity in the extremity. Pulse strong and present. Full boom tender and strengths. Sensation is intact. Cap refill less than 2 seconds. She states the pain does occur more so with movement of the shoulder joint. Patient denies headache, syncope, vision changes, numbness, focal weakness, abdominal pain, nausea, vomiting, diarrhea, fever, cough, shortness of breath, chest pain. She states she had slight tingling in that left hand but that was 1 time today. Blood work is unremarkable. Troponin is normal. EKG is normal. Patient is stable and she will be given diclofenac and a Medrol Dosepak. [] Dragon Disclaimer: Dragon Disclaimer: This electronic medical record was generated, in whole or in part, using a voice recognition dictation system. Departure Departure Impression: Primary Impression: Chronic left shoulder pain Disposition: DC HOME SELF CARE/HOMELESS Condition: STABLE Referrals: ALBERT TOLEDO MD (PCP) ORIN GOMEZ MD Patient Instructions: Shoulder Pain Additional Instructions: Follow-up with your primary care provider. I have also referred you to an orthopedic since this is a chronic pain. Take medication as prescribed and with food. If pain worsens or you begin having chest pain or shortness of breath any return to the emergency room. Scripts Methylprednisolone (MEDROL) 4 Mg Tab.ds.pk 1 PKG PO UD, #1 PKG Prov: PEARL HOGUE [employer] 03/15/20 Diclofenac Sodium (DICLOFENAC SODIUM) 50 Mg Tablet.dr 1 TAB PO BID, #10 TAB 1 Refill Prov: PEARL HOGUE [employer] 03/15/20 PEARL HOGUE [employer] Mar 15, 2020 12:40
[2020-03-15] MEDS ORDERED: DICLOFENAC SODIUM 25 MG TABLET.DR PO ONE (12:45)
[2020-03-15 13:20] LABS: BASO % 0 % (0-3); EOS # 0.1 x10^3/uL (0.0-0.7); EOS % 1 % (0-3); HEMATOCRIT 41.1 % (36.0-47.0); LYMPH # 1.8 x10^3/uL (1.0-4.8); LYMPH % 27 % (24-48); MEAN CORPUSCULAR HEMOGLOBIN 30 pg (25-35); MEAN CORPUSCULAR HGB CONC 34 g/dL (31-37); MEAN CORPUSCULAR VOLUME 90 fL (79-100); MONO # 0.7 x10^3/uL (0.0-1.1); MONO % 11 % (0-9); NEUT # 3.9 x10^3/uL (1.8-7.7); NEUT % 60 % (31-73); PLATELET COUNT 174 x10^3/uL (140-400); RED BLOOD COUNT 4.59 x10^6/uL (3.50-5.40); RED CELL DISTRIBUTION WIDTH 13.1 % (11.5-14.5); WHITE BLOOD COUNT 6.5 x10^3/uL (4.0-11.0)
[2020-03-15 13:27] LABS: BILIRUBIN,URINE NEGATIVE (NEG); CLARITY,URINE CLEAR; COLOR,URINE YELLOW; NITRITE,URINE NEGATIVE (NEG); PROTEIN,URINE NEGATIVE (NEG-TRACE)
[2020-03-15 13:35] LABS: CALCIUM 9.5 mg/dL (8.5-10.1); CREATININE 0.8 mg/dL (0.6-1.0); GFR 92.2; POTASSIUM 3.5 mmol/L (3.5-5.1)
[2020-03-15 13:40] LABS: ALBUMIN 3.6 g/dL (3.4-5.0); ALBUMIN/GLOBULIN RATIO 0.8 (1.0-1.7); TOTAL BILIRUBIN 0.3 mg/dL (0.2-1.0); TOTAL PROTEIN 8.2 g/dL (6.4-8.2)
[2020-03-15 13:44] LABS: BACTERIA,URINE 0 /HPF (0-FEW); RBC,URINE 0 /HPF (0-2); WBC,URINE OCC /HPF (0-4)
[2020-03-15] MEDS ORDERED: DICL50TA4 PO (13:52)
[2020-03-15] MEDS ORDERED: METH4TAB2 PO (13:52)
[2020-03-15 14:19] VITALS: BP 135/79
--- NOTE | 2020-03-16 04:08 | EKG ---
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
== END 2020-03-15 14:19 | disposition home or self-care (01) ==
LOC: ER 11:55
DX: M25.512 Pain in left shoulder (principal); G89.29 Other chronic pain; R42 Dizziness and giddiness; E11.9 Type 2 diabetes mellitus without complications; K21.9 Gastro-esophageal reflux disease without esophagitis; I10 Essential (primary) hypertension; Z90.49 Acquired absence of other specified parts of digestive tract; Z98.51 Tubal ligation status; E66.9 Obesity, unspecified; Z68.41 Body mass index [BMI] 40.0-44.9, adult
CPT/HCPCS: 36415; 80053; 81001; 84484; 85025; 93005; 99284

== ENCOUNTER 2020-10-22 14:47 | Emergency (ER) | payer MEDICARE ==
[~2020-10-22] VITALS: Ht 180.3 cm; Wt 135.9 kg
[~2020-10-22 14:47] MED LIST changes: +DICL50TA4 PO; +METH4TAB2 PO
--- NOTE | 2020-10-22 17:50 | PHYS DOC ---
Past Medical History Past Medical History: Anemia, Arthritis, Diabetes-Type II, GERD, Hypertension, Other Additional Past Medical Histor: BORDERLINE DIABETIC,BACK PAIN Past Surgical History: Cholecystectomy, Tubal ligation Smoking Status: Never Smoker Alcohol Use: Occasionally Drug Use: None General Adult EDM: Chief Complaint: HEADACHE HPI: HPI: Patient is a 49 year old female with history of anxiety, hypertension, diabetes type 2, who presents to the ED today complaining of taking the wrong medication. Patient states she picked up her blood pressure medicines from [facility] 3 days ago. Patient states yesterday she realized she was taking metoprolol which had a different patient's name she normally takes amlodipine and lisinopril. Patient has a bottle of metoprolol in somebody's name. She is complaining of dizziness, abdominal discomfort and headache. Denies any chest pain, shortness of breath. Review of Systems: Review of Systems: Constitutional: Denies fever or chills. [] Eyes: Denies change in visual acuity. [] HENT: Denies nasal congestion or sore throat. [] Respiratory: Denies cough or shortness of breath. [] Cardiovascular: Denies chest pain or edema. [] GI: Reports abdominal pain nausea, vomiting, bloody stools or diarrhea. [] : Denies dysuria. [] Musculoskeletal: Denies back pain or joint pain. [] Integument: Denies rash. [] Neurologic: Reports headache, lightheadedness, dizziness, denies focal weakness or sensory changes. [] [] Psychiatric: Denies depression or anxiety. [] Heart Score: C/O Chest Pain: N/A Risk Factors: Risk Factors: DM, Current or recent (<one month) smoker, HTN, HLP, family history of CAD, obesity. Risk Scores: Score 0 - 3: 2.5% MACE over next 6 weeks - Discharge Home Score 4 - 6: 20.3% MACE over next 6 weeks - Admit for Clinical Observation Score 7 - 10: 72.7% MACE over next 6 weeks - Early Invasive Strategies Allergies: Allergies: Allergies Coded Allergies Type Severity Reaction Last Updated Verified No Known Drug Allergies 12/16/14 No Physical Exam: PE: Constitutional: Well developed, well nourished, no acute distress, non-toxic appearance. [] HENT: Normocephalic, atraumatic, bilateral external ears normal, oropharynx moist, no oral exudates, nose normal. [] Eyes: PERRLA, EOMI, conjunctiva normal, no discharge. [] Neck: Normal range of motion, no tenderness, supple, no stridor. [] Cardiovascular:Heart rate regular rhythm, no murmur [] Lungs & Thorax: Bilateral breath sounds clear to auscultation [] Abdomen: Bowel sounds normal, soft, no tenderness, no masses, no pulsatile masses. [] Skin: Warm, dry, no erythema, no rash. [] Back: No tenderness, no CVA tenderness. [] Extremities: No tenderness, no cyanosis, no clubbing, ROM intact, no edema. [] Neurologic: Alert and oriented X 3, normal motor function, normal sensory function, no focal deficits noted. Cranial nerves II through XII intact Psychologic: Affect normal, judgement normal, mood normal. [] Current Patient Data: Labs: Laboratory Tests Test 10/22/20 16:33 POC Urine HCG, Qualitative Hcg negative (Negative) Vital Signs: Vital Signs Date Time Temp Pulse Resp B/P (MAP) Pulse Ox O2 Delivery O2 Flow Rate FiO2 10/22/20 16:17 97.9 89 18 145/84 (97) 99 Room Air 97.9 EKG: EKG: [] Radiology/Procedures: Radiology/Procedures: [] Course & Med Decision Making: Course & Med Decision Making Pertinent Labs and Imaging studies reviewed. (See chart for details) This is a 49-year-old female patient presented to the ED today complaining of dizziness, lightheadedness, abdominal pain, symptoms began yesterday, after taking metoprolol that accidentally given to her by the pharmacy. Patient's blood pressure in the ED is 145/84 with a heart rate of 89. She was instructed to stop taking metoprolol and continue taking her amlodipine and lisinopril. She was instructed to follow-up with her PCP in 1 to 2 weeks. Nicolette Disclaimer: Nicolette Disclaimer: This electronic medical record was generated, in whole or in part, using a voice recognition dictation system. Departure Departure Impression: Primary Impression: Adverse reaction to metoprolol Qualified Codes: T44.7X5A - Adverse effect of beta-adrenoreceptor antagonists, initial encounter Disposition: HOME / SELF CARE / HOMELESS Condition: STABLE Referrals: ALBERT TOLEDO MD (PCP) follow up next week Patient Instructions: Basics of Medication Management Additional Instructions: You were evaluated in the emergency room. Stop taking metoprolol and resume taking your lisinopril and amlodipine. Follow-up with your doctor next week. Your symptoms will improve over time. Please return to the ER at any point symptoms worsen VASHTI ROLLINS APRN Oct 22, 2020 17:50
[2020-10-22 18:25] VITALS: BP 121/73
== END 2020-10-22 18:33 | disposition home or self-care (01) ==
LOC: ER 14:47
DX: R51.9 Headache, unspecified (principal); T44.7X5A Adverse effect of beta-adrenoreceptor antagonists, initial encounter; R42 Dizziness and giddiness; E11.9 Type 2 diabetes mellitus without complications; K21.9 Gastro-esophageal reflux disease without esophagitis; I10 Essential (primary) hypertension; Z90.49 Acquired absence of other specified parts of digestive tract; Z98.51 Tubal ligation status; Y92.89 Other specified places as the place of occurrence of the external cause
CPT/HCPCS: 81025; 99282

== ENCOUNTER 2020-11-07 11:44 | Emergency (ER) | payer MEDICARE ==
[~2020-11-07] VITALS: Ht 180.3 cm; Wt 135.4 kg
--- NOTE | 2020-11-07 12:09 | EKG ---
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
[2020-11-07] MEDS ORDERED: IBUPROFEN 200 MG TABLET. PO ONE (12:15)
--- NOTE | 2020-11-07 12:15 | PHYS DOC ---
Past Medical History Past Medical History: Anemia, Arthritis, Diabetes-Type II, GERD, Hypertension, Other Additional Past Medical Histor: BORDERLINE DIABETIC,BACK PAIN Past Surgical History: Cholecystectomy, Tubal ligation Smoking Status: Never Smoker Alcohol Use: Occasionally Drug Use: None General Adult EDM: Chief Complaint: SHOULDER INJURY HPI: HPI: Patient is a 49 year old female with history of hypertension and diabetes type 2 who presents with a 1 week history of left axilla pain and dizziness last night. 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 However, last night she says she had a "dizzy spell" and the pain in her shoulder radiated up towards her neck. She denies ever having had similar symptoms before. Patient reports both her high blood pressure and her blood sugar are well controlled. Patient denies history of parents or grandparents having ID prior to age 55. 2 years ago, she reports she was diagnosed with arthritis in her left shoulder. She has not taken any [id number] or prescription pain medications at home since the onset of her pain. She has no other complaints at this time. Review of Systems: Review of Systems: Constitutional: Denies fever or chills. Respiratory: Denies cough or shortness of breath. Cardiovascular: See HPI GI: Denies abdominal pain, nausea, vomiting, bloody stools or diarrhea. Musculoskeletal: See HPI Integument: Denies diaphoresis, laceration, abrasion or rash. Neurologic: Denies headache, focal weakness or sensory changes. Endocrine: Denies polyuria or polydipsia. Heart Score: C/O Chest Pain: N/A (Atypical chest pain) HEART Score for Chest Pain: HEART Score for Chest Pain Response (Comments) Value History Slighlty/Non-Suspicious 0 ECG Normal 0 Age >45 - < 65 1 Risk Factors >3 Risk Factors or Hx CAD 2 Total 3 Risk Factors: Risk Factors: DM, HTN, obesity. Risk Scores: Score 0 - 3: 2.5% MACE over next 6 weeks - Discharge Home Score 4 - 6: 20.3% MACE over next 6 weeks - Admit for Clinical Observation Score 7 - 10: 72.7% MACE over next 6 weeks - Early Invasive Strategies Current Medications: Current Medications Medications (Trade) Dose Ordered Sig/Tena Start Time Stop Time Status Last Admin Dose Admin Ibuprofen (Motrin) 600 mg 1X ONCE 11/07/20 12:15 11/07/20 12:16 UNV Allergies: Allergies: Allergies Coded Allergies Type Severity Reaction Last Updated Verified No Known Drug Allergies 12/16/14 No Physical Exam: PE: Constitutional: Obese, well-groomed, no acute distress, non-toxic appearance. Neck: No JVD, normal range of motion, no tenderness, supple, no stridor. Cardiovascular: Heart rate regular rhythm, no murmur. Lungs & Thorax: Bilateral breath sounds clear to auscultation. Skin: Warm, dry, no erythema, no rash. Extremities: No tenderness, no cyanosis, no clubbing, ROM intact, no edema, distal pulses intact. Neurologic: Alert and oriented x3, normal motor function, normal sensory function, no focal deficits noted. Current Patient Data: Labs: Laboratory Tests Test 11/07/20 12:20 White Blood Count 6.4 x10^3/uL (4.0-11.0) Red Blood Count 4.45 x10^6/uL (3.50-5.40) Hemoglobin 13.5 g/dL (12.0-15.5) Hematocrit 40.1 % (36.0-47.0) Mean Corpuscular Volume 90 fL (79-100) Mean Corpuscular Hemoglobin 30 pg (25-35) Mean Corpuscular Hemoglobin Concent 34 g/dL (31-37) Red Cell Distribution Width 13.1 % (11.5-14.5) Platelet Count 213 x10^3/uL (140-400) Neutrophils (%) (Auto) 64 % (31-73) Lymphocytes (%) (Auto) 24 % (24-48) Monocytes (%) (Auto) 10 % (0-9) Eosinophils (%) (Auto) 1 % (0-3) Basophils (%) (Auto) 1 % (0-3) Neutrophils # (Auto) 4.1 x10^3/uL (1.8-7.7) Lymphocytes # (Auto) 1.5 x10^3/uL (1.0-4.8) Monocytes # (Auto) 0.6 x10^3/uL (0.0-1.1) Eosinophils # (Auto) 0.1 x10^3/uL (0.0-0.7) Basophils # (Auto) 0.0 x10^3/uL (0.0-0.2) Sodium Level 136 mmol/L (136-145) Potassium Level 3.3 mmol/L (3.5-5.1) Chloride Level 98 mmol/L (98-107) Carbon Dioxide Level 31 mmol/L (21-32) Anion Gap 7 (6-14) Blood Urea Nitrogen 8 mg/dL (7-20) Creatinine 0.8 mg/dL (0.6-1.0) Estimated GFR (Cockcroft-Gault) 92.2 Glucose Level 160 mg/dL (70-99) Calcium Level 9.2 mg/dL (8.5-10.1) Creatine Kinase 198 U/L (26-192) Creatine Kinase MB (Mass) 0.5 ng/mL (0.0-3.6) Creatine Kinase MB Relative Index 0.3 % (0-4) Troponin I Quantitative < 0.017 ng/mL (0.000-0.055) Vital Signs: Vital Signs Date Time Temp Pulse Resp B/P (MAP) Pulse Ox O2 Delivery O2 Flow Rate FiO2 11/07/20 11:57 98.2 116 20 185/86 (119) 98 Room Air 98.2 EKG: EKG: EKG Interpreted by Dr. Hogan: Elevated rate 112 bpm, regular rhythm with no ectopic beats. No concerning ST-T wave changes. Regular QR interval. 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 / Spl. Instructions: / History: Comparison: Left shoulder radiograph October 17, 2016 Findings: There is no acute fracture or dislocation. Articular surfaces are uninterupted and smooth. Soft tissues are unremarkable. Impression: No evidence of acute osseous abnormality. Electronically signed by: Reggie Dimas MD (11/07/2020 12:37 PM) [id number][] Course & Med Decision Making: Course & Med Decision Making Pertinent Labs and Imaging studies reviewed. (See chart for details) Work-up today consisted of ruling out any bony injury to the shoulder as well as cardiac etiology for pain. No fractures are seen on x-ray of the shoulder, and cardiac work-up is reassuring. Patient is resting comfortably with ibuprofen. She will be discharged home with instructions to continue using NSAIDs as well as resting her shoulder until the pain and inflammation subside. She will be provided with the phone number for Ortho, should she feel that she needs further evaluation of her shoulder in the future. Patient is agreeable to discharge plan. Nicolette Disclaimer: Nicolette Disclaimer: This electronic medical record was generated, in whole or in part, using a voice recognition dictation system. Departure Departure Impression: Primary Impression: Chronic left shoulder pain Disposition: HOME / SELF CARE / HOMELESS Condition: IMPROVED Referrals: ALBERT TOLEDO MD (PCP) LOVE HAMMOND MD Patient Instructions: Shoulder Pain, Eupj-tf-Purp Additional Instructions: Continue to use [id number] ibuprofen to treat pain and inflammation of your left shoulder. Should your pain worsen, or not improve at home with rest and NSAIDs, please follow-up with orthopedic doctors. You may call them with the contact information provided to you today. Should your pain become unmanageable at home, please return to the emergency department. DOTTY JOSEPH Nov 07, 2020 12:15
[2020-11-07 12:37] LABS: BASO % 1 % (0-3); EOS # 0.1 x10^3/uL (0.0-0.7); EOS % 1 % (0-3); HEMATOCRIT 40.1 % (36.0-47.0); HEMOGLOBIN 13.5 g/dL (12.0-15.5); LYMPH # 1.5 x10^3/uL (1.0-4.8); LYMPH % 24 % (24-48); MEAN CORPUSCULAR HEMOGLOBIN 30 pg (25-35); MEAN CORPUSCULAR HGB CONC 34 g/dL (31-37); MEAN CORPUSCULAR VOLUME 90 fL (79-100); MONO # 0.6 x10^3/uL (0.0-1.1); MONO % 10 % (0-9); NEUT # 4.1 x10^3/uL (1.8-7.7); NEUT % 64 % (31-73); PLATELET COUNT 213 x10^3/uL (140-400); RED BLOOD COUNT 4.45 x10^6/uL (3.50-5.40); RED CELL DISTRIBUTION WIDTH 13.1 % (11.5-14.5); WHITE BLOOD COUNT 6.4 x10^3/uL (4.0-11.0)
--- NOTE | 2020-11-07 12:40 | RAD ---
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 / Spl. Instructions: / History: Comparison: Left shoulder radiograph October 17, 2016 Findings: There is no acute fracture or dislocation. Articular surfaces are uninterupted and smooth. Soft tissues are unremarkable. Impression: No evidence of acute osseous abnormality. Electronically signed by: Reggie Dimas MD (11/07/2020 12:37 PM) [id number]
[2020-11-07 12:48] LABS: CALCIUM 9.2 mg/dL (8.5-10.1); CREATININE 0.8 mg/dL (0.6-1.0); GFR 92.2; POTASSIUM 3.3 mmol/L (3.5-5.1)
[2020-11-07 13:15] VITALS: BP 123/82
== END 2020-11-07 13:26 | disposition home or self-care (01) ==
LOC: ER 11:44
DX: G89.29 Other chronic pain (principal); M25.512 Pain in left shoulder; R42 Dizziness and giddiness; I10 Essential (primary) hypertension; E11.9 Type 2 diabetes mellitus without complications; K21.9 Gastro-esophageal reflux disease without esophagitis
CPT/HCPCS: 36415; 73030; 80048; 82553; 84484; 85025; 93005; 99285-25

== ENCOUNTER 2020-12-29 15:33 | Emergency (ER) | payer MEDICARE ==
[~2020-12-29 15:33] MED LIST changes: +CYCL10TA19 PO; -CYCL10TA2 PO
== END 2020-12-29 21:05 | disposition left against medical advice (07) ==
LOC: ER 15:33
DX: M54.2 Cervicalgia (principal); Z53.21 Procedure and treatment not carried out due to patient leaving prior to being seen by health care provider